=== PATIENT | female | born 1975 | race Caucasian/White ===

== ENCOUNTER 2020-08-10 10:53 | Outpatient (REF) | payer OTHER, SELFPAY ==
--- NOTE | ~2020-08-10 | XR_ITS ---
EXAMINATION: XR CHEST CLINICAL INFORMATION: Rheumatoid arthritis. COMPARISON: None TECHNIQUE: 2 views of the chest were obtained. FINDINGS: There is no evidence of acute parenchymal disease. No pneumothorax or pleural effusion. Heart normal size. Mediastinum unremarkable. No evidence of pulmonary edema. Status post previous right shoulder surgery no significant bony abnormality appreciated. XR/XR chest 2V IMPRESSION: No acute disease.
[2020-08-10 12:42] LABS: MANUAL DIFF FLAG NO
[2020-08-10 12:54] LABS: Basophils Percent Auto 0.8 % (0-2); Eosinophils Absolute Auto 0.1 X10*3/uL (0.0-0.4); Eosinophils Percent Auto 1.4 % (0-4); Hematocrit 42.2 % (37-47); Hemoglobin 14.4 g/dl (12.0-16.0); Imm Gran Abs Auto 0.01 X10*3/uL (0.00-0.03); Imm Gran Pct Auto 0.2 % (0.0-0.4); Lymphocytes Absolute Auto 1.7 X10*3/uL (1.2-4.9); Lymphocytes Percent Auto 33.3 % (20-40); Mean Corpuscular HGB Conc 34.1 g/dl (31.0-35.0); Mean Corpuscular Volume 96.6 fL (80-98); Mean Platelet Volume 10.6 fL (9.4-12.3); Monocytes Absolute Auto 0.4 X10*3/uL (0.1-1.2); Monocytes Percent Auto 7.9 % (2-11); Neutrophils Absolute Auto 2.9 X10*3/uL (2.0-8.3); Neutrophils Percent Auto 56.4 % (45-73); Platelet Count 155 X10*3/uL (160-400); Red Blood Count 4.37 X10*6/uL (4.20-5.50); White Blood Count 5.2 X10*3/uL (4.8-10.8)
[2020-08-10 13:06] LABS: Alanine Aminotransferase 39 U/L (0-31); Albumin Level 4.5 g/dL (3.5-5.0); Alkaline Phosphatase 49 U/L (39-117); Anion Gap 11 (12-20); Aspartate Amino Transferase 29 U/L (5-31); Bilirubin Total 0.6 mg/dL (0.0-1.0); Blood Urea Nitrogen 10 mg/dL (9-16); C Reactive Protein 0.08 mg/dL (< or = 0.50); Calcium 9.5 mg/dL (8.4-10.2); Carbon Dioxide 28 mmol/L (22-29); Chloride 105 mmol/L (96-108); Estimated Glomerular Filt Rate > 60; Glucose Random 79 mg/dL (60-115); Potassium 4.1 mmol/L (3.3-5.1); Sodium 140 mmol/L (135-145); Total Protein 6.9 g/dL (6.5-8.0)
[2020-08-10 13:20] LABS: HBS Num1 > 1000.00 mIU/mL (0-7.99); Hepatitis A Antibody IgM 0.24 Index (0-0.79); ~Hepatitis A Antibody IgM Nonreactive (Nonreactive); ~Hepatitis B Surface Antibody REACTIVE (Nonreactive)
[2020-08-10 13:50] LABS: Erythrocyte Sedimentation Rate 5 MM/HR (0-20)
[2020-08-10 13:51] LABS: HBc Num1 0.08 S/CO (0.00-0.79); HBsAGNum1 0.24 S/CO (0.00-0.99); Hepatitis B Core Antibody Nonreactive (Nonreactive); Hepatitis B Surface Antigen Negative (Negative); ~Hepatitis C Antibody Nonreactive (Nonreactive)
[2020-08-13 14:57] LABS: TS Negative Control Passed; TS Panel A 1; TS Panel B 0; TS Positive Control Passed; TSpotTB Negative (SeeBelow)
[2020-08-14 14:11] LABS: Vitamin D 25-OH, D2 <4 ng/mL; Vitamin D 25-OH, D3 30 ng/mL; Vitamin D 25-OH, Total 30 ng/mL (30-100)
== END 2020-08-10 10:54 | disposition home or self-care (01) ==
LOC: HO.XRAY 10:53
PROVIDERS: PCP Nurse Practitioner Family; Visit Provider Student in an Organized Health Care Education/Training Program
DX: M06.9 Rheumatoid arthritis, unspecified (principal); Z79.899 Other long term (current) drug therapy
CPT/HCPCS: 36415; 71046; 80053; 82306; 85025; 85652; 86140; 86481; 86704; 86706; 86709; 86803; 87340

== ENCOUNTER → 2020-08-18 08:49 | Outpatient (BNVA) | payer OTHER, SELFPAY | PROVIDERS: Visit Provider Student in an Organized Health Care Education/Training Program ==

== ENCOUNTER → 2020-10-19 08:20 | Outpatient (BNVA) | payer OTHER, SELFPAY | PROVIDERS: PCP Nurse Practitioner Family; Visit Provider Nurse Practitioner Family ==

== ENCOUNTER 2020-12-17 08:16 | Outpatient (REF) | payer OTHER, SELFPAY ==
[2020-12-17 08:24] LABS: MANUAL DIFF FLAG NO
[2020-12-17 09:14] LABS: Basophils Percent Auto 0.6 % (0-2); Eosinophils Absolute Auto 0.2 X10*3/uL (0.0-0.4); Eosinophils Percent Auto 4.2 % (0-4); Hematocrit 44.2 % (37-47); Hemoglobin 15.3 g/dl (12.0-16.0); Imm Gran Abs Auto 0.01 X10*3/uL (0.00-0.03); Imm Gran Pct Auto 0.3 % (0.0-0.4); Lymphocytes Absolute Auto 1.5 X10*3/uL (1.2-4.9); Lymphocytes Percent Auto 40.7 % (20-40); Mean Corpuscular HGB Conc 34.6 g/dl (31.0-35.0); Mean Corpuscular Hemoglobin 32.8 pg (27.0-33.0); Mean Corpuscular Volume 94.8 fL (80-98); Mean Platelet Volume 10.7 fL (9.4-12.3); Monocytes Absolute Auto 0.4 X10*3/uL (0.1-1.2); Monocytes Percent Auto 10.5 % (2-11); Neutrophils Absolute Auto 1.6 X10*3/uL (2.0-8.3); Neutrophils Percent Auto 43.7 % (45-73); Platelet Count 149 X10*3/uL (160-400); Red Blood Count 4.66 X10*6/uL (4.20-5.50); Red Cell Distribution Width 12.2 % (11.0-16.0); White Blood Count 3.6 X10*3/uL (4.8-10.8)
[2020-12-17 09:36] LABS: Alanine Aminotransferase 68 U/L (0-31); Albumin Level 4.3 g/dL (3.5-5.0); Alkaline Phosphatase 47 U/L (39-117); Anion Gap 11 (12-20); Aspartate Amino Transferase 36 U/L (5-31); Bilirubin Total 0.4 mg/dL (0.0-1.0); Blood Urea Nitrogen 12 mg/dL (9-16); C Reactive Protein 0.04 mg/dL (< or = 0.50); Calcium 9.3 mg/dL (8.4-10.2); Carbon Dioxide 30 mmol/L (22-29); Chloride 104 mmol/L (96-108); Estimated Glomerular Filt Rate > 60; Glucose Random 87 mg/dL (60-115); Potassium 4.8 mmol/L (3.3-5.1); Sodium 140 mmol/L (135-145); Total Protein 6.9 g/dL (6.5-8.0)
[2020-12-17 10:23] LABS: Erythrocyte Sedimentation Rate 3 MM/HR (0-20)
== END 2020-12-17 08:17 | disposition home or self-care (01) ==
LOC: HO.LAB 08:16
PROVIDERS: PCP Nurse Practitioner Family; Visit Provider Nurse Practitioner Family
DX: M06.9 Rheumatoid arthritis, unspecified (principal)
CPT/HCPCS: 36415; 80053; 85025; 85652; 86140

== ENCOUNTER → 2020-12-19 14:23 | Outpatient (BNVA) | payer OTHER, SELFPAY | PROVIDERS: PCP Nurse Practitioner Family; Visit Provider Nurse Practitioner Family ==

== ENCOUNTER 2021-01-09 08:12 | Outpatient (REF) | payer OTHER, SELFPAY ==
[2021-01-09 08:31] LABS: MANUAL DIFF FLAG NO
[2021-01-09 08:49] LABS: Basophils Percent Auto 0.8 % (0-2); Eosinophils Percent Auto 0.8 % (0-4); Hematocrit 42.9 % (37.0-47.0); Hemoglobin 14.6 g/dl (12.0-16.0); Imm Gran Abs Auto 0.01 X10*3/uL (0.00-0.03); Imm Gran Pct Auto 0.2 % (0.0-0.4); Lymphocytes Absolute Auto 1.4 X10*3/uL (1.2-4.9); Lymphocytes Percent Auto 29.7 % (20-40); Mean Corpuscular Hemoglobin 33.2 pg (27.0-33.0); Mean Corpuscular Volume 97.5 fL (80.0-98.0); Mean Platelet Volume 10.3 fL (9.4-12.3); Monocytes Absolute Auto 0.4 X10*3/uL (0.1-1.2); Monocytes Percent Auto 7.9 % (2-11); Neutrophils Absolute Auto 2.9 x10*3/uL (2.0-8.3); Neutrophils Percent Auto 60.6 % (45-73); Platelet Count 183 X10*3/uL (160-400); Red Cell Distribution Width 12.9 % (11.0-16.0); White Blood Count 4.8 X10*3/uL (4.8-10.8)
[2021-01-09 09:12] LABS: Alanine Aminotransferase 27 U/L (0-31); Albumin Level 4.3 g/dL (3.5-5.0); Alkaline Phosphatase 46 U/L (39-117); Anion Gap 12 (12-20); Aspartate Amino Transferase 21 U/L (5-31); Bilirubin Total 0.7 mg/dL (0.0-1.0); Blood Urea Nitrogen 9 mg/dL (9-16); C Reactive Protein 0.03 mg/dL (< or = 0.50); Calcium 9.1 mg/dL (8.4-10.2); Carbon Dioxide 28 mmol/L (22-29); Chloride 105 mmol/L (96-108); Estimated Glomerular Filt Rate > 60; Glucose Random 124 mg/dL (60-115); Potassium 4.6 mmol/L (3.3-5.1); Sodium 140 mmol/L (135-145); Total Protein 6.7 g/dL (6.5-8.0)
[2021-01-09 09:42] LABS: Erythrocyte Sedimentation Rate 3 MM/HR (0-20)
== END 2021-01-09 08:13 | disposition home or self-care (01) ==
LOC: HO.LAB 08:12
PROVIDERS: PCP Nurse Practitioner Family; Visit Provider Nurse Practitioner Family
DX: M06.9 Rheumatoid arthritis, unspecified (principal)
CPT/HCPCS: 36415; 80053; 85025; 85652; 86140

== ENCOUNTER → 2021-03-24 14:27 | Outpatient (BNVA) | payer OTHER, SELFPAY | PROVIDERS: PCP Nurse Practitioner Family; Visit Provider Nurse Practitioner Family ==

== ENCOUNTER 2021-06-03 08:46 | Outpatient (REF) | payer OTHER, SELFPAY ==
[2021-06-03 09:18] LABS: MANUAL DIFF FLAG NO
[2021-06-03 09:29] LABS: Basophils Percent Auto 0.7 % (0-2); Eosinophils Percent Auto 0.5 % (0-4); Hemoglobin 15.5 g/dl (12.0-16.0); Imm Gran Abs Auto 0.02 X10*3/uL (0.00-0.03); Imm Gran Pct Auto 0.4 % (0.0-0.4); Lymphocytes Percent Auto 35.6 % (20-40); Mean Corpuscular HGB Conc 33.7 g/dl (31.0-35.0); Mean Corpuscular Volume 98.1 fL (80.0-98.0); Mean Platelet Volume 10.6 fL (9.4-12.3); Monocytes Absolute Auto 0.6 X10*3/uL (0.1-1.2); Monocytes Percent Auto 9.7 % (2-11); Neutrophils Percent Auto 53.1 % (45-73); Platelet Count 170 X10*3/uL (160-400); Red Blood Count 4.69 X10*6/uL (4.20-5.50); Red Cell Distribution Width 12.6 % (11.0-16.0); White Blood Count 5.7 X10*3/uL (4.8-10.8)
[2021-06-03 09:56] LABS: Alanine Aminotransferase 42 U/L (0-31); Albumin Level 4.6 g/dL (3.5-5.0); Alkaline Phosphatase 48 U/L (39-117); Anion Gap 11 (12-20); Aspartate Amino Transferase 25 U/L (5-31); Bilirubin Total 0.8 mg/dL (0.0-1.0); Blood Urea Nitrogen 10 mg/dL (9-16); C Reactive Protein 0.06 mg/dL (< or = 0.50); Carbon Dioxide 30 mmol/L (22-29); Chloride 105 mmol/L (96-108); Estimated Glomerular Filt Rate > 60; Glucose Random 105 mg/dL (60-115); Potassium 5.1 mmol/L (3.3-5.1); Sodium 141 mmol/L (135-145); Total Protein 7.4 g/dL (6.5-8.0)
[2021-06-03 10:15] LABS: Erythrocyte Sedimentation Rate 4 MM/HR (0-20)
== END 2021-06-03 08:47 | disposition home or self-care (01) ==
LOC: HO.LAB 08:46
PROVIDERS: PCP Nurse Practitioner Family; Visit Provider Nurse Practitioner Family
DX: M06.9 Rheumatoid arthritis, unspecified (principal)
CPT/HCPCS: 36415; 80053; 85025; 85652; 86140

== ENCOUNTER → 2021-06-28 14:29 | Outpatient (BNVA) | payer OTHER, SELFPAY | PROVIDERS: PCP Nurse Practitioner Family; Visit Provider Nurse Practitioner Family | DX: Z13.89 Encounter for screening for other disorder (principal) ==

== ENCOUNTER 2021-08-17 09:13 | Outpatient (REF) | payer OTHER, SELFPAY ==
[2021-08-17 09:29] LABS: MANUAL DIFF FLAG NO
[2021-08-17 10:02] LABS: Basophils Percent Auto 0.7 % (0-2); Eosinophils Absolute Auto 0.1 X10*3/uL (0.0-0.4); Eosinophils Percent Auto 1.1 % (0-4); Hematocrit 43.1 % (37.0-47.0); Hemoglobin 14.4 g/dl (12.0-16.0); Imm Gran Abs Auto 0.01 X10*3/uL (0.00-0.03); Imm Gran Pct Auto 0.2 % (0.0-0.4); Lymphocytes Absolute Auto 1.8 X10*3/uL (1.2-4.9); Lymphocytes Percent Auto 40.5 % (20-40); Mean Corpuscular HGB Conc 33.4 g/dl (31.0-35.0); Mean Corpuscular Hemoglobin 32.5 pg (27.0-33.0); Mean Corpuscular Volume 97.3 fL (80.0-98.0); Monocytes Absolute Auto 0.4 X10*3/uL (0.1-1.2); Monocytes Percent Auto 8.8 % (2-11); Neutrophils Absolute Auto 2.2 x10*3/uL (2.0-8.3); Neutrophils Percent Auto 48.7 % (45-73); Platelet Count 168 X10*3/uL (160-400); Red Blood Count 4.43 X10*6/uL (4.20-5.50); Red Cell Distribution Width 12.2 % (11.0-16.0); White Blood Count 4.4 X10*3/uL (4.8-10.8)
[2021-08-17 10:33] LABS: Alanine Aminotransferase 33 U/L (0-31); Albumin Level 4.3 g/dL (3.5-5.0); Alkaline Phosphatase 48 U/L (39-117); Anion Gap 12 (12-20); Aspartate Amino Transferase 25 U/L (5-31); Bilirubin Total 0.6 mg/dL (0.0-1.0); Blood Urea Nitrogen 10 mg/dL (9-16); C Reactive Protein 0.11 mg/dL (< or = 0.50); Calcium 9.2 mg/dL (8.4-10.2); Carbon Dioxide 29 mmol/L (22-29); Chloride 105 mmol/L (96-108); Estimated Glomerular Filt Rate > 60; Glucose Random 88 mg/dL (60-115); Potassium 4.7 mmol/L (3.3-5.1); Sodium 141 mmol/L (135-145)
[2021-08-17 10:43] LABS: Erythrocyte Sedimentation Rate 5 MM/HR (0-20)
== END 2021-08-17 09:14 | disposition home or self-care (01) ==
LOC: HO.LAB 09:13
PROVIDERS: PCP Nurse Practitioner Family; Visit Provider Nurse Practitioner Family
DX: M06.9 Rheumatoid arthritis, unspecified (principal)
CPT/HCPCS: 36415; 80053; 85025; 85652; 86140

== ENCOUNTER 2021-11-18 08:27 | Outpatient (REF) | payer OTHER, SELFPAY ==
--- NOTE | ~2021-11-18 | XR_ITS ---
EXAMINATION: XR HAND, RIGHT XR HAND, LEFT CLINICAL INFORMATION: Rheumatoid arthritis. COMPARISON: None. TECHNIQUE: PA, oblique, and lateral views of the right and left hand. FINDINGS: Right Hand: No fracture or dislocation. Normal carpal alignment. No significant joint space narrowing or marginal osteophytes. No osseous erosion. No periarticular osteopenia. No abnormal soft tissue calcification. Left Hand: No fracture or dislocation. Normal carpal alignment. No significant joint space narrowing or marginal osteophytes. No osseous erosion. No periarticular osteopenia. No abnormal soft tissue calcification. XR/XR hand RT min 3V IMPRESSION: RIGHT HAND: Unremarkable examination. LEFT HAND: Unremarkable examination.
--- NOTE | ~2021-11-18 | XR_ITS ---
EXAMINATION: XR HAND, RIGHT XR HAND, LEFT CLINICAL INFORMATION: Rheumatoid arthritis. COMPARISON: None. TECHNIQUE: PA, oblique, and lateral views of the right and left hand. FINDINGS: Right Hand: No fracture or dislocation. Normal carpal alignment. No significant joint space narrowing or marginal osteophytes. No osseous erosion. No periarticular osteopenia. No abnormal soft tissue calcification. Left Hand: No fracture or dislocation. Normal carpal alignment. No significant joint space narrowing or marginal osteophytes. No osseous erosion. No periarticular osteopenia. No abnormal soft tissue calcification. XR/XR hand LT min 3V IMPRESSION: RIGHT HAND: Unremarkable examination. LEFT HAND: Unremarkable examination.
[2021-11-18 08:43] LABS: MANUAL DIFF FLAG NO
[2021-11-18 09:12] LABS: Basophils Percent Auto 0.6 % (0-2); Eosinophils Percent Auto 0.8 % (0-4); Hematocrit 44.6 % (37.0-47.0); Hemoglobin 15.1 g/dl (12.0-16.0); Imm Gran Abs Auto 0.01 X10*3/uL (0.00-0.03); Imm Gran Pct Auto 0.2 % (0.0-0.4); Lymphocytes Absolute Auto 1.4 X10*3/uL (1.2-4.9); Lymphocytes Percent Auto 29.8 % (20-40); Mean Corpuscular HGB Conc 33.9 g/dl (31.0-35.0); Mean Corpuscular Hemoglobin 32.5 pg (27.0-33.0); Mean Corpuscular Volume 96.1 fL (80.0-98.0); Mean Platelet Volume 10.1 fL (9.4-12.3); Monocytes Absolute Auto 0.4 X10*3/uL (0.1-1.2); Neutrophils Absolute Auto 2.9 x10*3/uL (2.0-8.3); Neutrophils Percent Auto 60.6 % (45-73); Platelet Count 194 X10*3/uL (160-400); Red Blood Count 4.64 X10*6/uL (4.20-5.50); Red Cell Distribution Width 13.2 % (11.0-16.0); White Blood Count 4.7 X10*3/uL (4.8-10.8)
[2021-11-18 09:53] LABS: Alanine Aminotransferase 30 U/L (0-31); Albumin Level 4.2 g/dL (3.5-5.0); Alkaline Phosphatase 52 U/L (39-117); Anion Gap 17 (12-20); Aspartate Amino Transferase 22 U/L (5-31); Bilirubin Total 0.7 mg/dL (0.0-1.0); Blood Urea Nitrogen 12 mg/dL (9-16); C Reactive Protein 0.05 mg/dL (< or = 0.50); Calcium 9.2 mg/dL (8.4-10.2); Carbon Dioxide 25 mmol/L (22-29); Chloride 102 mmol/L (96-108); Estimated Glomerular Filt Rate > 60; Glucose Random 114 mg/dL (60-115); Potassium 4.4 mmol/L (3.3-5.1); Sodium 140 mmol/L (135-145); Total Protein 6.9 g/dL (6.5-8.0)
[2021-11-18 09:57] LABS: Erythrocyte Sedimentation Rate 5 MM/HR (0-20)
== END 2021-11-18 08:28 | disposition home or self-care (01) ==
LOC: HO.LAB 08:27
PROVIDERS: PCP Nurse Practitioner Family; Visit Provider Nurse Practitioner Family
DX: M06.9 Rheumatoid arthritis, unspecified (principal)
CPT/HCPCS: 36415; 73130; 80053; 85025; 85652; 86140

== ENCOUNTER 2022-05-19 09:52 | Outpatient (REF) | payer OTHER, SELFPAY | END 2022-05-19 09:53 | disposition home or self-care (01) | LOC: HO.LAB 09:52 | PROVIDERS: PCP Nurse Practitioner Family; Visit Provider Nurse Practitioner Family | DX: Z13.89 Encounter for screening for other disorder (principal) ==

== ENCOUNTER → 2022-06-08 07:26 | Outpatient (BNVA) | payer OTHER, SELFPAY | PROVIDERS: PCP Nurse Practitioner Family; Visit Provider Nurse Practitioner Family | DX: M06.9 Rheumatoid arthritis, unspecified (principal) ==

== ENCOUNTER 2022-06-08 08:07 | Outpatient (REF) | payer OTHER, SELFPAY ==
[2022-06-08 11:01] LABS: MANUAL DIFF FLAG NO
[2022-06-08 11:09] LABS: Basophils Absolute Auto 0.1 X10*3/uL (0.0-0.2); Eosinophils Absolute Auto 0.1 X10*3/uL (0.0-0.4); Eosinophils Percent Auto 0.8 % (0-4); Hematocrit 45.1 % (37.0-47.0); Imm Gran Abs Auto 0.01 X10*3/uL (0.00-0.03); Imm Gran Pct Auto 0.2 % (0.0-0.4); Lymphocytes Absolute Auto 1.3 X10*3/uL (1.2-4.9); Lymphocytes Percent Auto 22.7 % (20-40); Mean Corpuscular HGB Conc 33.3 g/dl (31.0-35.0); Mean Corpuscular Hemoglobin 32.1 pg (27.0-33.0); Mean Corpuscular Volume 96.4 fL (80.0-98.0); Mean Platelet Volume 11.1 fL (9.4-12.3); Monocytes Absolute Auto 0.5 X10*3/uL (0.1-1.2); Monocytes Percent Auto 8.8 % (2-11); Neutrophils Absolute Auto 3.9 x10*3/uL (2.0-8.3); Neutrophils Percent Auto 66.5 % (45-73); Platelet Count 177 X10*3/uL (160-400); Red Blood Count 4.68 X10*6/uL (4.20-5.50); Red Cell Distribution Width 12.2 % (11.0-16.0); White Blood Count 5.9 X10*3/uL (4.8-10.8)
[2022-06-08 11:29] LABS: Alanine Aminotransferase 39 U/L (0-31); Albumin Level 4.3 g/dL (3.5-5.0); Alkaline Phosphatase 48 U/L (39-117); Anion Gap 11 (12-20); Aspartate Amino Transferase 30 U/L (5-31); Bilirubin Total 0.9 mg/dL (0.0-1.0); Blood Urea Nitrogen 9 mg/dL (9-16); C Reactive Protein < 0.10 mg/dL (< or = 0.50); Calcium 9.2 mg/dL (8.4-10.2); Carbon Dioxide 30 mmol/L (22-29); Chloride 104 mmol/L (96-108); Estimated Glomerular Filt Rate > 60; Glucose Random 80 mg/dL (60-115); Potassium 4.4 mmol/L (3.3-5.1); Sodium 141 mmol/L (135-145); Total Protein 6.6 g/dL (6.5-8.0)
[2022-06-08 11:48] LABS: Erythrocyte Sedimentation Rate 2 MM/HR (0-20)
[2022-06-08 11:49] LABS: HBS Num1 > 1000.00 mIU/mL (0-7.99); HBc Num1 0.11 S/CO (0.00-0.79); HBsAGNum1 0.33 S/CO (0.00-0.99); Hepatitis A Antibody IgM 0.16 Index (0-0.79); Hepatitis B Core Antibody Nonreactive (Nonreactive); Hepatitis B Surface Antigen Negative (Negative); ~HepC Num1 0.26 S/CO (0.00-0.79); ~Hepatitis A Antibody IgM Nonreactive (Nonreactive); ~Hepatitis B Surface Antibody REACTIVE (Nonreactive); ~Hepatitis C Antibody Nonreactive (Nonreactive)
[2022-06-10 22:43] LABS: TS Negative Control Passed; TS Panel A 0; TS Panel B 0; TS Positive Control Passed; TSpotTB Negative (Negative)
== END 2022-06-08 08:08 | disposition home or self-care (01) ==
LOC: HO.10HDL 08:07
PROVIDERS: Visit Provider Nurse Practitioner Family
DX: M06.9 Rheumatoid arthritis, unspecified (principal)
CPT/HCPCS: 36415; 80053; 85025; 85652; 86140; 86481; 86704; 86706; 86709; 86803; 87340

== ENCOUNTER 2023-07-19 11:17 | Outpatient (REF) | payer OTHER, SELFPAY ==
[2023-07-19 13:35] LABS: MANUAL DIFF FLAG NO
[2023-07-19 13:42] LABS: Basophils Percent Auto 0.6 % (0-2); Eosinophils Percent Auto 0.8 % (0-4); Hematocrit 44.5 % (37.0-47.0); Hemoglobin 15.1 g/dl (12.0-16.0); Imm Gran Abs Auto 0.01 X10*3/uL (0.00-0.03); Imm Gran Pct Auto 0.2 % (0.0-0.4); Lymphocytes Absolute Auto 1.6 X10*3/uL (1.2-4.9); Lymphocytes Percent Auto 30.5 % (20-40); Mean Corpuscular HGB Conc 33.9 g/dl (31.0-35.0); Mean Corpuscular Hemoglobin 31.7 pg (27.0-33.0); Mean Corpuscular Volume 93.3 fL (80.0-98.0); Mean Platelet Volume 10.6 fL (9.4-12.3); Monocytes Absolute Auto 0.5 X10*3/uL (0.1-1.2); Monocytes Percent Auto 8.6 % (2-11); Neutrophils Absolute Auto 3.1 x10*3/uL (2.0-8.3); Neutrophils Percent Auto 59.3 % (45-73); Platelet Count 154 X10*3/uL (160-400); Red Blood Count 4.77 X10*6/uL (4.20-5.50); Red Cell Distribution Width 12.2 % (11.0-16.0); White Blood Count 5.2 X10*3/uL (4.8-10.8)
[2023-07-19 14:00] LABS: Alanine Aminotransferase 19 U/L (0-31); Albumin Level 4.3 g/dL (3.5-5.0); Alkaline Phosphatase 42 U/L (39-117); Anion Gap 13 (12-20); Aspartate Amino Transferase 21 U/L (5-31); Bilirubin Total 0.7 mg/dL (0.0-1.0); Blood Urea Nitrogen 11 mg/dL (9-16); C Reactive Protein < 0.10 mg/dL (< or = 0.50); Calcium 9.4 mg/dL (8.4-10.2); Carbon Dioxide 29 mmol/L (22-29); Chloride 104 mmol/L (96-108); Estimated Glomerular Filt Rate > 60; Glucose Random 85 mg/dL (60-115); Potassium 3.9 mmol/L (3.3-5.1); Sodium 142 mmol/L (135-145); Total Protein 7.1 g/dL (6.5-8.0)
[2023-07-19 14:23] LABS: Erythrocyte Sedimentation Rate 3 MM/HR (0-20)
== END 2023-07-19 11:18 | disposition home or self-care (01) ==
LOC: HO.10HDL 11:17
PROVIDERS: Visit Provider Student in an Organized Health Care Education/Training Program
DX: M06.9 Rheumatoid arthritis, unspecified (principal); Z79.899 Other long term (current) drug therapy
CPT/HCPCS: 36415; 80053; 85025; 85652; 86140

== ENCOUNTER 2023-07-22 07:57 | Outpatient (AMB) | payer OTHER, SELFPAY ==
--- NOTE | 2023-07-22 07:59 | MHC.OFFVIS ---
Vital Signs 07/22/23 08:06 Height 5 ft 2 in Weight 160 lb 11.472 oz BMI 29.4 BP 128/74 Blood Pressure Location Rt brachial Position Sitting Pulse 79 Pulse Source Pulse Oximeter Pulse Oximetry (%) 99 Oxygen Delivery Method Room Air Intake Visit Reasons: Rheumatoid Arthritis Intake Note: Pt last seen by Chantel Piedra on 06/08/22 presents today with complaints of brain fog, fatigue, sore hands and feet. [employer] Driver Required: No Accompanied by: Self / Same As Patient Allergies No Known Allergies Allergy (Verified 07/22/23 08:05) Medication List - Last Reconciled 07/22/23 by Karen Aranda MD bupropion HCl XL 300 mg PO QAM ibuprofen 400 mg PO Q8H PRN HPI Comments Details: 47-year-old female with seropositive RA returns for follow-up. She was last seen by Krystyna Piedra 06/2022. She had been off her methotrexate for more than a year. She states that since she stopped the methotrexate she has been feeling worse. She is having stiffness of her hands and feet. She is most stiff in the morning and it improves after 1 hour. She takes ibuprofen 400 mg to treat the pain and stiffness about once a week. She has not noticed any significant swelling. Has been having some brain fog and fatigue. [facility] Medical History Rheumatoid arthritis Surgical History H/O shoulder surgery Hx of section Family History Mother No problems noted. Father No problems noted. Social History Alcohol intake: current Alcohol intake frequency: a few times a week Alcohol type: beer Patient Tobacco Use Status: Never used Tobacco e-Cigarette/Vaping Use: Never Used Review of Systems Const Reports weakness Musc Reports deformity, Reports arthralgias and Reports stiffness Neuro Reports weakness Physical Exam Vital Signs: Last Vital Signs Pulse 79 07/22/23 08:06 BP 128/74 07/22/23 08:06 Pulse Ox 99 07/22/23 08:06 Oxygen Delivery Method Room Air 07/22/23 08:06 BMI result Body Mass Index 29.4 Const General: cooperative, healthy appearing and comfortable Nutritional Appearance: overweight Orientation/consciousness: patient oriented x3 Limitations: no limitations HEENT Head: Yes normocephalic and Yes atraumatic Mouth: moist mucous membranes Resp Effort & Inspection: normal respiratory effort and able to speak in complete sentences Auscultation: clear to auscultation bilaterally Cardio Rate: regular rate Rhythm: regular rhythm Skin General skin exam: no rashes or lesions noted Neuro General: patient oriented x3 Extrem Other: Minimal osteoarthritic changes of both hands with some Heberden's node that are mildly tender Few swollen and tender PIP is bilaterally Bilateral positive MCP squeeze test No wrist swelling or tenderness or pain with any range of motion bilaterally Normal range of motion of elbows and shoulders without pain Normal range of motion of knees without pain Negative MTP squeeze test bilaterally No ankle swelling or tenderness bilaterally Assessment & Plan Assessment & Plan (1) Rheumatoid arthritis: Comment: April 2019 -Diagnosed, methotrexate 8 tabs weekly August 2020- 8 tabs methotrexate, failed sulfasalazine, Humira added December 2020- elevated LFTs, methotrexate decreased to 5 tabs weekly, Humira March 2021- 5 tabs methotrexate , Humira discontinue, Enbrel started-continued pain June 2021- 5 tab methotrexate , Enbrel discontinued-no difference November 2021- patient would like to trial off methotrexate. Code(s): M06.9 - Rheumatoid arthritis, unspecified Category: Medical Plan: This is a 47-year-old female with seropositive RA who presents for follow-up. Patient has been off her methotrexate for over a year and has been feeling worse. Has been having worsening new line stiffness and pain in her hands and feet. On exam she has both swollen and tender PIPs. Very subtle on exam. Inflammatory markers are normal. Will need to restart DMARDs. Discussed risks and benefits of this chloroquine. Patient agreed to proceed. Start hydroxychloroquine 200 mg, 400 mg daily x5 days a week and 200 mg daily x2 days a week. If no improvement, will switch to Orencia. Labs before next visit in 3 months (2) Long-term use of hydroxychloroquine: Code(s): Z79.899 - Other penitentiary (current) drug therapy Category: Medical Plan: Discussed risk of retinopathy associated with hydroxychloroquine. Patient will make an appointment with her salvage cutter Plan I spent 30 minutes reviewing patient's chart, evaluating patient, ordering diagnostic workup, counseling patient and documenting in the chart Orders: Orders Complete Blood Count Auto Diff 3 Months M06.9 - Rheumatoid arthritis, unspecified Erythrocyte Sedimentation Rate 3 Months M06.9 - Rheumatoid arthritis, unspecified Comprehensive Met. Panel 3 Months M06.9 - Rheumatoid arthritis, unspecified C Reactive Protein 3 Months M06.9 - Rheumatoid arthritis, unspecified Medications: New hydroxychloroquine Take 2 tabs daily x5 days a week and 1 tab daily x2 days a week 144 tabs 0RF Coding Level of Care Code Est Pt Level 4 (46068) Diagnoses Rheumatoid arthritis M06.9 Long-term use of hydroxychloroquine Z79.899
[2023-07-22 08:06] VITALS: BP 128/74; PULSE 79; O2SAT 99; BMI 29.4
== END 2023-07-22 08:40 | disposition home or self-care (01) ==
PROVIDERS: PCP Nurse Practitioner Family; Visit Provider Student in an Organized Health Care Education/Training Program
DX: M06.9 Rheumatoid arthritis, unspecified (principal); Z79.899 Other long term (current) drug therapy
CPT/HCPCS: 99214

== ENCOUNTER → 2023-07-22 07:57 | Outpatient (BNVA) | payer OTHER, SELFPAY | PROVIDERS: PCP Nurse Practitioner Family; Visit Provider Student in an Organized Health Care Education/Training Program ==

== ENCOUNTER 2023-10-28 12:46 | Outpatient (REF) | payer OTHER, SELFPAY ==
[2023-10-28 13:06] LABS: MANUAL DIFF FLAG NO
[2023-10-28 13:18] LABS: Basophils Percent Auto 0.5 % (0-2); Eosinophils Percent Auto 0.7 % (0-4); Hematocrit 43.4 % (37.0-47.0); Hemoglobin 14.8 g/dl (12.0-16.0); Imm Gran Abs Auto 0.01 X10*3/uL (0.00-0.03); Imm Gran Pct Auto 0.2 % (0.0-0.4); Lymphocytes Absolute Auto 1.5 X10*3/uL (1.2-4.9); Lymphocytes Percent Auto 27.7 % (20-40); Mean Corpuscular HGB Conc 34.1 g/dl (31.0-35.0); Mean Corpuscular Hemoglobin 32.5 pg (27.0-33.0); Mean Corpuscular Volume 95.2 fL (80.0-98.0); Mean Platelet Volume 10.2 fL (9.4-12.3); Monocytes Absolute Auto 0.6 X10*3/uL (0.1-1.2); Monocytes Percent Auto 10.1 % (2-11); Neutrophils Absolute Auto 3.4 x10*3/uL (2.0-8.3); Neutrophils Percent Auto 60.8 % (45-73); Platelet Count 187 X10*3/uL (160-400); Red Blood Count 4.56 X10*6/uL (4.20-5.50); Red Cell Distribution Width 12.3 % (11.0-16.0); White Blood Count 5.6 X10*3/uL (4.8-10.8)
[2023-10-28 13:45] LABS: Alanine Aminotransferase 19 U/L (0-31); Albumin Level 4.2 g/dL (3.5-5.0); Alkaline Phosphatase 47 U/L (39-117); Anion Gap 12 (12-20); Aspartate Amino Transferase 21 U/L (5-31); Bilirubin Total 0.6 mg/dL (0.0-1.0); Blood Urea Nitrogen 10 mg/dL (9-16); C Reactive Protein < 0.10 mg/dL (< or = 0.50); Carbon Dioxide 28 mmol/L (22-29); Chloride 105 mmol/L (96-108); Estimated Glomerular Filt Rate > 60; Glucose Random 101 mg/dL (60-115); Potassium 5.2 mmol/L (3.3-5.1); Sodium 140 mmol/L (135-145); Total Protein 6.9 g/dL (6.5-8.0)
[2023-10-28 14:03] LABS: Erythrocyte Sedimentation Rate 4 MM/HR (0-20)
== END 2023-10-28 12:47 | disposition home or self-care (01) ==
LOC: HO.10HDL 12:46
PROVIDERS: Visit Provider Student in an Organized Health Care Education/Training Program
DX: M06.9 Rheumatoid arthritis, unspecified (principal)
CPT/HCPCS: 36415; 80053; 85025; 85652; 86140

== ENCOUNTER 2023-10-30 09:39 | Outpatient (AMB) | payer OTHER, SELFPAY ==
--- NOTE | 2023-10-30 09:44 | A.OFFVIS_ITS ---
Vital Signs 10/30/23 09:45 Height 5 ft 2 in Weight 158 lb 15.253 oz BMI 29.1 BP 120/66 Blood Pressure Location Rt brachial Position Sitting Pulse 78 Pulse Source Pulse Oximeter Pulse Oximetry (%) 98 Oxygen Delivery Method Room Air Intake Visit Reasons: RA Intake Note: Patient presents today for follow up on RA and labs review, last seen on 07/22/2023. Allergies No Known Allergies Allergy (Verified 10/30/23 09:47) Medication List - Last Reconciled 10/30/23 by Karen Aranda MD bupropion HCl XL 300 mg PO QAM hydroxychloroquine Take 2 tabs daily x5 days a week and 1 tab daily x2 days a week ibuprofen 400 mg PO Q8H PRN HPI Comments Details: This is a 48-year-old female with seropositive RA who presents for follow-up. She has been taking hydroxychloroquine regularly over the last 3 months. She noted minimal GI upset but nothing significant. She states that her overall stiffness is improved. But she continues to have some pain and stiffness of her fingers. She has difficulty making a fist sometimes. [facility] Medical History Rheumatoid arthritis Surgical History H/O shoulder surgery Hx of section Family History Mother No problems noted. Father No problems noted. Social History Alcohol intake: current Alcohol intake frequency: a few times a week Alcohol type: beer Patient Tobacco Use Status: Never used Tobacco e-Cigarette/Vaping Use: Never Used Review of Systems [facility] Reports deformity, Reports arthralgias and Reports stiffness Physical Exam Vital Signs: Last Vital Signs Pulse 78 10/30/23 09:45 BP 120/66 10/30/23 09:45 Pulse Ox 98 10/30/23 09:45 Oxygen Delivery Method Room Air 10/30/23 09:45 BMI result Body Mass Index 29.1 Const General: cooperative, healthy appearing and comfortable Nutritional Appearance: overweight Orientation/consciousness: patient oriented x3 Limitations: no limitations HEENT Head: Yes normocephalic and Yes atraumatic Mouth: moist mucous membranes Resp Effort & Inspection: normal respiratory effort and able to speak in complete sentences Auscultation: clear to auscultation bilaterally Cardio Rate: regular rate Rhythm: regular rhythm Skin General skin exam: no rashes or lesions noted Neuro General: patient oriented x3 Extrem Other: Osteoarthritic changes of both hands with prominent Heberden's and Bernice's nodes that are mildly tender No swollen joints today No wrist swelling or tenderness or pain with any range of motion bilaterally Normal range of motion of elbows and shoulders without pain Normal range of motion of knees without pain Negative MTP squeeze test bilaterally No ankle swelling or tenderness bilaterally Assessment & Plan Assessment & Plan (1) Rheumatoid arthritis: Comment: April 2019 -Diagnosed, methotrexate 8 tabs weekly August 2020- 8 tabs methotrexate, failed sulfasalazine, Humira added December 2020- elevated LFTs, methotrexate decreased to 5 tabs weekly, Humira March 2021- 5 tabs methotrexate , Humira discontinue, Enbrel started-continued pain June 2021- 5 tab methotrexate , Enbrel discontinued-no difference November 2021- patient would like to trial off methotrexate. [facility] 07/2023 effective Code(s): M06.9 - Rheumatoid arthritis, unspecified Category: Medical Qualifiers: Rheumatoid arthritis location: multiple sites Rheumatoid factor presence: with rheumatoid factor Qualified Code(s): M05.79 - Rheumatoid arthritis with rheumatoid factor of multiple sites without organ or systems involvement Plan: This is a 48-year-old female with seropositive RA who presents for follow-up. She has been taking hydroxychloroquine regularly for the last 3 months with improved overall stiffness. On exam there is no active synovitis. 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 Test bilateral hand osteoarthritis today and its different management strategies. At this time no specific treatment is needed Continue with hydroxychloroquine Labs before next visit in 6 months (2) Long-term use of hydroxychloroquine: Code(s): Z79.899 - Other superintendent [employer] (current) drug therapy Category: Medical Plan: Discussed risk of retinopathy associated with hydroxychloroquine. Patient will make an appointment with her certified anesthesiologist assistant (3) Hyperkalemia: Code(s): E87.5 - Hyperkalemia Category: Medical Plan: Mild hyperkalemia, potassium 5.2, no recent medication or dietary changes. We will check labs before next visit Plan I spent 25 minutes reviewing patient's chart, evaluating patient, ordering diagnostic workup, counseling patient and documenting in the chart Orders: Orders Complete Blood Count Auto Diff 6 Months M06.9 - Rheumatoid arthritis, unspecified Comprehensive Met. Panel 6 Months M06.9 - Rheumatoid arthritis, unspecified C Reactive Protein 6 Months M06.9 - Rheumatoid arthritis, unspecified Erythrocyte Sedimentation Rate 6 Months M06.9 - Rheumatoid arthritis, unspecified Coding Level of Care Code Est Pt Level 4 (20610) Diagnoses Rheumatoid arthritis involving multiple sites with positive rheumatoid factor M05.79 Rheumatoid arthritis location: multiple sites Rheumatoid factor presence: with rheumatoid factor Long-term use of hydroxychloroquine Z79.899 Hyperkalemia E87.5
[2023-10-30 09:45] VITALS: BP 120/66; PULSE 78; O2SAT 98; BMI 29.1
== END 2023-10-30 12:03 | disposition home or self-care (01) ==
PROVIDERS: PCP Nurse Practitioner Family; Visit Provider Student in an Organized Health Care Education/Training Program
DX: M05.79 Rheumatoid arthritis with rheumatoid factor of multiple sites without organ or systems involvement (principal); Z79.899 Other long term (current) drug therapy; E87.5 Hyperkalemia
CPT/HCPCS: 99214

== ENCOUNTER → 2023-10-30 09:39 | Outpatient (BNVA) | payer OTHER, SELFPAY | PROVIDERS: PCP Nurse Practitioner Family; Visit Provider Student in an Organized Health Care Education/Training Program ==

== ENCOUNTER 2024-04-24 12:25 | Outpatient (REF) | payer OTHER, SELFPAY ==
--- OUTSIDE RECORDS SUMMARY | 2024-04-24 13:05 | XMS_ITS | Data Portability ---
Author Organization [facility], , [facility] Address [address] [place] [address] Care Team Providers Care Transportation Coordinator Name Role Phone VANI ASHRAF Primary Care Provider [phone] Assessment No assessment recorded. Plan of Treatment Reminders Order Date Submit Date Provider Last Modified By Organization Details Last Modified Time Details Appointments Compreh ensive Eye Exam, 20 Min 2024 02:10P M Debra Villafuerte, HERRERA Not available Not available Not available Lab lipid panel, serum 2024 025 [facility], [address] [place] [address], [id number], 03/27/2024 12:25:56 TSH, serum or plasma 2024 025 [facility], [address] [place] [address], [address], 03/27/2024 11:31:42 glucose , QN [mass/v olume], serum or plasma 2024 025 [facility], [address] [place] [address], [address], 03/27/2024 12:25:57 progest erone, serum 2024 025 [facility], [address] [place] [address], [address], 03/31/2024 19:17:30 lipid panel, serum 2022 023 [facility], [address] [place] [address], [address], 11/02/2022 10:16:32 TSH, serum or plasma 2022 023 [facility], [address] [place] [address], [address], 11/02/2022 10:48:34 glucose , QN [mass/v olume], serum or plasma 2022 023 [facility], [address] [place] [address], [address], 11/02/2022 10:16:33 pap, LB + HPV - Pap smear with HPVIs this patient taking hormone s (y/n)? IF yes, what type? 2022 023 [facility] (Pathology), [address] [place] [address], [address], 11/07/2022 12:48:53 AST/SGO T (aspart ate aminotr ansfera se), serum or plasma 2022 023 [facility], [address] [place] [address], [address], 11/02/2022 10:16:34 ALT (alanin e aminotr ansfera se), serum or plasma 2022 023 [facility], [address] [place] [address], [address], 11/02/2022 10:16:35 Referral None recorde d. Procedures colonos copy procedu re (PROC) [email or web address] [facility], [address] [place], [address], 11/02/2022 09:52:46 Surgeries None recorde d. Imaging MAMMO, screeni ng, tomosyn thesis, bilater al - 2nd Look Consult /Diag Mammo/U S Breast/ Guided Asp/Radha ast Bx/Clip Placeme nt, as clinica lly indicat ed. 2024 025 [facility] (Imaging), [address], [place], [address], 04/15/2024 14:03:55 MAMMO, rosai syed, tomosyn thesis, batsheva lino 2022 023 [facility] (Imaging), [address] [place], [address], 04/10/2023 13:59:57 Medication Orders cyclobe nzaprin e 5 mg tablet 2022 023 [email or web address] [address] [id number], [address], [place], [id number], 03/26/2024 14:20:38 Patient TargetsNo targets recorded. Patient Instructions Encounter Date Encounter Id Patient Instructions Last Modified By Organization Details Last Modified Time 11/01/2022 [id number] Well Visit, Ages 18 to 65: Care Instructions [email or web address] Not available 11/01/2022 11:21:10 Reason for Referral None Reported. Results Created Date Observation Date Name Description Value Unit Range Abnormal Flag Note LastModifiedBy Organization Detail LastModifiedTime 11/02/1911/02/2022 LIPID PANEL cholesterol 192 mg/dL <200 mg/dl Zenon able 200-2 39 mg/dl Borde rline High >240 mg/dl High Not Available [address], [address], 11/02/2022 10:16:32 11/02/1911/02/2022 LIPID PANEL triglyceride s 85 mg/dL <150 mg/dL Nara l 150-1 99 mg/dL Borde rline High 200-4 99 mg/dL High >500 mg/dL Very High Not Available [address], [address], 11/02/2022 10:16:32 11/02/1911/02/2022 LIPID PANEL direct HDL 61 mg/dL <40 mg/dl - Major Risk for CHD >60 mg/dl - Negat jack Risk for CHD Not Available [address], [address], 11/02/2022 10:16:32 11/02/19 23 11/02/2022 GLUCO SE glucose 82 mg/dL 70-100 Not Available [address], [address], 11/02/2022 10:16:33 11/02/19 23 11/02/2022 AST AST 25 U/L 0-37 Not Available [address], [address], 11/02/2022 10:16:34 11/02/19 23 11/02/2022 ALT ALT 26 U/L 6-63 Not Available [address], [address], 11/02/2022 10:16:35 11/02/19 23 11/02/2022 DIREC T LDL direct LDL 90 mg/dL RISK CATEG ORY LDL GOAL _ CHD or CHD Risk Equiv alent s <100 mg/dl (10-y ear risk >20%) 2+ Risk Facto rs <130 mg/dl (10-y ear risk <= 20%) 0-1 Risk Facto r??? <160 mg/dl ??? Almos t all peopl e with 0-1 risk facto r have a 10 year risk <10%, thus 10 year risk asses ment in peopl e with 0-1 risk facto r is not allen sandhu. Not Available [address], [address], 11/02/2022 10:16:36 11/02/19 23 11/02/2022 TSH TSH 3.37 uIU/m L 0.50-6 .00 The Ameri can Colle ge of Endoc rinol ogy and Ameri can Thyro id Assoc iatio n recom mend goal TSH value s betwe en 0.4-4 .0 mIU/m L. Not Available [facility] [address] [facility], [place], [address], 11/02/2022 10:48:33 11/02/19 23 11/07/2022 PAP TEST path report [facility] [address] [facility] [address] Lab Direc tor: Loree marquez MD MANAGER INSTALLATION Cytol ogy Repor t Acces carmella #: [id number] FINAL DIAGN OSIS A. PAP SMEAR (SURE PATH) CE: SPECI MEN ADEQU ACY: Satis facto ry for evalu ation ; trans forma tion zone prese nt. INTER PRETA TION: NEGAT JACK FOR INTRA EPITH ELIAL LESIO N OR MALIG DAWIT . React jack gao es. Elect robyn curiel Guerline d Out By: MD Devang Eddy er, CT( CP) By his/h er signtabatha zhang above , the patho logis t liste d as aj collier the Final Diagn osis certi fies that he/sh e has perso greta revie wed this case and confi rmed or corre cted the diagn osis. The Pap test is a scree brunilda test prima rily for squam ous cance rs and precu rsors and has assoc iated false -nega tive and false -posi tive resul ts. New techn ologi es such as liqui d-bas ed prepa ratio ns may decre ase but will not elimi petrona all false -nega tive resul ts. Regul ar sampl ing and follo w-up of unexp jakub d clini brissa signs and sympt oms are recom kristina d to minim ize false negat jack resul ts. PROCE DURES /ADDE NDA HPV Testi ng (Requ ested ) Order ed Date: 023 A. PAP SMEAR (SURE PATH) CE: Human Papil jaelyn Virus Test NEGAT JACK for high- risk Human Papil jaelyn Virus types 16, 18, 45 and the Othe r high risk probe set (Incl udes 31, 33, 35, 39, 51, 52, 56, 58, 59, 66, 68) Note: Testi ng perfo rmed by Rick martel HR-HP V maggy sis. Clini brissa corre latio n is advis ed. This HPV test was perfo rmed at [facility], [address] [facility]. This test has been FDA appro cb for SureP ath cervi brissa cytol ogy speci mens. The accur acy and preci carmella of this test for all other speci men sourc es has been verif ied in the Cytop athol ogy Labor atory of the [facility] and has not been clear ed or appro cb by the U.S. Food and Drug Admin istra tion. Clini brissa corre latio n is advis ed. Nereida ctron icall y Guerline d Out By: Joe phoenix on 023 10:56 CLINI BRISSA HISTO RY Date of Last Menst rual Perio d: Not Provi ded Menst rual Histo ry: Unkno wn Other Clini brissa Condi tions : Scree brunilda Pap SPECI MEN SOURC E A: PAP SMEAR (SURE PATH) CE Patie nt Name: GOLDIE MORALES RD ON : 1975 (Age: 47) Sex: F 1 Insti tutio n: [facility] Locat ion: [facility] Date of Colle ction : 2022 Date of Acces carmella: 023 Repor raeann: 023 12:34 Resul ts to: Leonor jc MD Not Available [facility] (Outpatient) [address] [facility], [place], [address], 11/07/2022 12:48:52 03/26/19 25 03/27/2024 TSH TSH 2.28 uIU/m L 0.50-6 .00 The Ameri can Colle ge of Endoc rinol ogy and Ameri can Thyro id Assoc iatio n recom mend goal TSH value s betwe en 0.4-4 .0 mIU/m L. Not Available [address], [address], 03/27/2024 11:31:41 03/26/1903/27/2024 LIPID PANEL cholesterol 183 mg/dL <200 mg/dl Zenon able 200-2 39 mg/dl Borde rline High >240 mg/dl High Not Available [address], [address], 03/27/2024 12:25:56 03/26/19 25 03/27/2024 LIPID PANEL triglyceride s 74 mg/dL <150 mg/dL Nara l 150-1 99 mg/dL Borde rline High 200-4 99 mg/dL High >500 mg/dL Very High Not Available [address], [address], 03/27/2024 12:25:56 03/26/1903/27/2024 LIPID PANEL direct HDL 72 mg/dL <40 mg/dl - Major Risk for CHD >60 mg/dl - Negat jack Risk for CHD Not Available [address], [address], 03/27/2024 12:25:56 03/26/1903/27/2024 GLUCO SE glucose 96 mg/dL 70-100 Not Available [address], [address], 03/27/2024 12:25:57 03/26/1903/27/2024 DIREC T LDL direct LDL 89 mg/dL RISK CATEG ORY LDL GOAL _ CHD or CHD Risk Equiv alent s <100 mg/dl (10-y ear risk >20%) 2+ Risk Facto rs <130 mg/dl (10-y ear risk <= 20%) 0-1 Risk Facto r??? <160 mg/dl ??? Almmoises t all peopl e with 0-1 risk facto r have a 10 year risk <10%, thus 10 year risk asses ment in peopl e with 0-1 risk facto r is not neckatty phoebe. Not Available [facility] [address] [facility], [place], [address], 03/27/2024 12:25:58 03/26/19 25 03/31/2024 PROGE STERO NE, LC/MS progesterone , lc/MS <0.1 NG/mL Adult Femal e Refer ence Range s for Proge stero ne: Pre-M enopa usal Mid Folli cular : < or = 0.3 ng/mL Pre-M enopa usal Surge : 0.1-1 .5 ng/mL Pre-M enopa usal Mid Lutea l: 6.7-2 2.2 ng/mL Postm enopa usal Phase : < or = 0.2 ng/mL This test was ines johnson and its maggy tical perfo rmanc e kenzie cteri stics have been deter mined by [facility]. It has not been clear ed or appro cb by FDA. This assay has been valid ated pursu ant to the CLIA regul ation s and is used for clini brissa purpo ses. Not Available [facility] [address], [place], [address], 03/31/2024 19:17:30 04/07/19 22 04/07/2021 US, raamkrishna t CLINIC AL HISTOR Y: Right breast upper outer quadra nt pain. Right breast lower inner quadra nt cysts. Left breast upper inner quadra nt asymme try. Follow -up. TECHNI QUE: Target ed sonogr aphy of the palpab le abnorm ality is perfor med. COMPAR JEANA: None. FINDIN GS: Right breast : There is a 0.8 x 0.4 x 0.7 cm group of cysts 5:00 5 cm from the nipple . This has not signif icantl y change d. In the area of the patien t's right breast pain, 10:00, the breast tissue appear s unrema rkable . There is no suspic ious mass or shadow ing. Left breast : There is focal hetero geneou s tissue in the left breast 10:00 6 cm from the nipple . This is not signif icantl y change d from the prior study. IMPRES CARMELLA: 1. Benign group of cysts in the right breast . 2. No focal abnorm ality in the area of the patien t's right breast pain. 3. No signif icant change in hetero geneou s left breast tissue . No sonogr aphic eviden ce of malign dominique. Please see the same day mammog key report . Readin g Physic ajit: Brandee Carlson ms [address] (Imaging) [address] , [place], [address], 04/07/2021 13:42:58 04/07/19 22 04/07/2021 MAMMO , diagn ostic , tomos ynthe sis, unila teral CLINIC AL HISTOR Y: Left breast asymme try. Right breast upper outer quadra nt pain. TECHNI QUE: 3D mammog key (tomos ynthes is) and 2D mammog key (C-vie w) imagin g are perfor med. CC and MLO views of the left breast are obtain ed. A left ML view and left compre ssion CC view are added. Images are review ed with the [employer] CAD system . COMPAR JEANA: 08/04/19 21, , FINDIN GS: The breast parenc hyma is compos ed of fatty and fibrog landul ar elemen ts. There are no domina nt masses , suspic ious microc alcifi cation s or areas of jackeline ectura l distor tion. An asymme try within the medial aspect of the left breast has not signif icantl y change d since . It remain s more promin ent than on the mammog goran. Target ed ultras ound his perfor med of a group of cysts in the right breast 5:00 5 cm from the nipple , an area of pain in the right breast , and hetero geneou s tissue in the left breast 10:00 6 cm from the nipple . Ultras ound Findin gs: Right breast : There is a 0.8 x 0.4 x 0.7 cm group of cysts 5:00 5 cm from the nipple . This has not signif icantl y change d. In the area of the patien t's right breast pain, 10:00, the breast tissue appear s unrema rkable . There is no suspic ious mass or shadow ing. Left breast : There is focal hetero geneou s tissue in the left breast 10:00 6 cm from the nipple . This is not signif icantl y change d from the prior study. IMPRES CARMELLA: Benign right breast cyst. No focal abnorm ality in the area of the patien t's right breast pain. Stable left breast fibrog landul ar tissue . The patien t should return in 6 months for screen ing of both breast s. This facili ty uses a remind er system with a target date for the next mammog goran. Breast densit y: B. There are scatte red areas of fibrog landul ar densit y. BI-RAD S: 2 BENIGN Readin g Physic ajit: Brandee Carlson ms [email or web address] (Imaging) [address], [place], [address], 04/07/2021 13:42:58 04/26/19 23 04/26/2022 audio logic asses sment (PROC ) No observ ation record ed. [email or web address] [facility] [address], [place], [address], 05/24/2022 13:35:18 04/10/19 24 04/10/2023 MAMMO , scree brunilda, tomos ynthe sis, bilat eral MAMMO, SCREEN , LAKIA, BILAT: 04/10/19 24. BI-RAD S: 0 CLINIC AL: 47-yea r old Female for Bilate ral Screen ing Mammog goran. No person al or first- degree family histor y of breast cancer . Walker castorena report ed family histor y of breast cancer : matern al aunt. PRIOR EXAMS: Review ed previo us images from 2021, 2020 and 2018. MAMMOG KEY TECHNI QUE: 3D mammog key (tomos ynthes is) and 2D mammog key (C-vie w) images are genera raeann. Images review ed with a CAD system . DENSIT Y B. There are scatte red areas of fibrog landul ar densit y. MAMMOG KEY FINDIN GS Right: No suspic ious mass, asymme try, microc alcifi cation , or other abnorm ality seen. Left: Inner Centra l, 4 cm from nipple , Middle depth, measur ing 1.5 cm: There is questi onable change in a medial left breast asymme try. On one view it appear s stable . On the MLO view it appear s more dense. It should be furthe r evalua raeann with compre ssion views and target ed ultras ound. Additi onal imagin g evalua tion needed . CONCLU CARMELLA Right * No eviden ce of malign dominique. Left * Incomp lete - Needs additi onal imagin g evalua tion. RECOMM ENDATI ONS Left: Inner Centra l, 4 cm from nipple , Middle depth * Furthe r evalua tion with diagno stic mammog key and diagno stic ultras ound. ADMINI STRATI VE: A lay summar y was mailed to your patien kell alejandra the result s and recomm endati ons for follow -up. OVERAL L ASSESS MENT CATEGO RY BI-RAD S-0: Incomp lete - Needs additi onal imagin g evalua tion. ELECTR ONICAL LY SIGNED : Brandee Carlson ms, M.D. on 2023 at 01:58: 52 PM Readmarce collier Physic ajit: Brandee Carlson ms [id number] [facility] (Imaging) [address], [place], [address], 04/10/2023 17:59:10 05/10/19 24 05/10/2023 MAMMO , diagn ostic , tomos ynthe sis, unila teral MAMMO, DIAG, LAKIA, UNI, LEFT, US, BREAST , LEFT: 05/10/19 24 BI-RAD S: 2 CLINIC AL: 47-yea r old Female for Left Diagno stic Mammog goran and Left Diagno stic Breast U/S that is a recall from Screen ing on 2023. No person al or first- degree family histor y of breast cancer . Walker castorena report ed family histor y of breast cancer : matern al aunt. PRIOR EXAMS: Review ed previo us images from 2023, 2021, 2020 and 2018. MAMMOG KEY TECHNI QUE 3D mammog key (tomos ynthes is) and 2D mammog key images (C-vie w or digita l) are genera raeann. Images review ed with a CAD system . ULTRAS OUND TECHNI QUE: Real-t jerson ultras ound exam was perfor med focuse d to the area of clinic al and/or imagin g concer n. DENSIT Y Left: B. There are scatte red areas of fibrog landul ar densit y. MAMMOG KEY FINDIN GS Left (findi ng-1): Inner Centra l, 4 cm from nipple : The patien t return s for furthe r evalua tion of a left breast asymme try that is chroni c, but appear ed slight ly more promin ent on the MLO view of the recent screen ing mammog goran. With target ed compre ssion there is no worris ome change . ULTRAS OUND FINDIN GS Left (findi ng-1): Upper Inner at 10:00, 6 cm from nipple . Previo us report : Inner Centra l, 4 cm from nipple : There is persis tent hetero geneou s tissue in the medial left breast simila r to the 04/07/19 22 ultras ound. No worris ome change is apprec iated. No suspic ious sonogr aphic findin g with typica lly benign findin gs noted. CONCLU CARMELLA Left * No eviden ce of malign dominique with benign findin gs. RECOMM ENDATI ONS Bilate ral * Annual screen ing mammog key. COMMEN TS: The above findin gs and recomm endati ons were discus sed with the patien t at the time of the exam. ADMINI STRATI VE: A lay summar y was mailed to your patien t amber khouryg the result s and recomm endati ons for follow -up. OVERAL L ASSESS MENT CATEGO RY BI-RAD S-2: Benign Findin gs. The [employer] e [employer] o[employer] recomm ends annual screen ing mammog key beginn ing at age 40 for women with averag e risk of breast cancer . ELECTR ONICAL LY SIGNED : Brandee Carlson ms, M.D. on 2023 at 10:51: 45 AM Josefina Brown ajit: Rockjoao Carlson ms [id number] [facility] (Imaging) [address] , [place], [address], 05/10/2023 14:11:45 05/10/19 24 05/10/2023 US, breas t MAMMO, DIAG, LAKIA, UNI, LEFT, US, BREAST , LEFT: 05/10/19 BI-RAD S: 2 CLINIC AL: 47-yea r old Female for Left Diagno stic Mammog goran and Left Diagno stic Breast U/S that is a recall from Screen ing on 2023. No person al or first- degree family histor y of breast cancer . Walker castorena report ed family histor y of breast cancer : matern al aunt. PRIOR EXAMS: Review ed previo us images from 2023, 2021, 2020 and 2018. MAMMOG KEY TECHNI QUE 3D mammog key (tomos ynthes is) and 2D mammog key images (C-vie w or digita l) are genera raeann. Images review ed with a CAD system . ULTRAS OUND TECHNI QUE: Real-t jerson ultras ound exam was perfor med focuse d to the area of clinic al and/or imagin g concer n. DENSIT Y Left: B. There are scatte red areas of fibrog landul ar densit y. MAMMOG KEY FINDIN GS Left (findi ng-1): Inner Centra l, 4 cm from nipple : The patien t return s for furthe r evalua tion of a left breast asymme try that is chroni c, but appear ed slight ly more promin ent on the MLO view of the recent screen ing mammog goran. With target ed compre ssion there is no worris ome change . ULTRAS OUND FINDIN GS Left (findi ng-1): Upper Inner at 10:00, 6 cm from nipple . Previo us report : Inner Centra l, 4 cm from nipple : There is persis tent hetero geneou s tissue in the medial left breast simila r to the 04/07/19 22 ultras ound. No worris ome change is apprec iated. No suspic ious sonogr aphic findin g with typica lly benign findin gs noted. CONCLU CARMELLA Left * No eviden ce of malign dominique with benign findin gs. RECOMM ENDATI ONS Bilate ral * Annual screen ing mammog key. COMMEN TS: The above findin gs and recomm endati ons were discus sed with the patien t at the time of the exam. ADMINI STRATI VE: A lay summar y was mailed to your patien t amber alejandra the result s and recomm endati ons for follow -up. OVERAL L ASSESS MENT CATEGO RY BI-RAD S-2: Benign Findin gs. The [employer] e [employer] o[employer] recomm ends annual screen ing mammog key beginn ing at age 40 for women with averag e risk of breast cancer . ELECTR ONICAL LY SIGNED : Brandee Carlson ms, M.D. on 2023 at 10:51: 45 AM Josefina collier Physic ajit: Brandee Carlson ms [id number] [facility] (Imaging) [address], [place], [address], 05/10/2023 14:11:45 04/15/19 25 04/15/2024 MAMMO , scree brunilda, tomos ynthe sis, bilat eral MAMMO, SCREEN , LKAIA, BILAT: 025. BI-RAD S: 1 CLINIC AL: 48-yea r old Female for Bilate ral Screen ing Mammog goran. [facility] 12.7%. No person al or first- degree family histor y of breast cancer . Walker castorena report ed family histor y of breast cancer : matern al aunt. PRIOR EXAMS: Review ed previo us images from 2023. MAMMOG KEY TECHNI QUE: 3D mammog key (tomos ynthes is) and 2D mammog key (C-vie w) images are genera raeann. Images review ed with a CAD system . DENSIT Y B. There are scatte red areas of fibrog landul ar densit y. MAMMOG KEY FINDIN GS Bilate ral: No suspic ious mass, asymme try, microc alcifi cation , or other abnorm ality seen. CONCLU SIONNo eviden ce of malign dominique. RECOMM ENDATI ONS Bilate ralAnn ual screen ing mammog key. ADMINI STRATI VE: A lay summar y was mailed to your patien kell alejandra the result s and recomm endati ons for follow -up. OVERAL L ASSESS MENT CATEGO RY BI-RAD S-1: Negati ve. The [employer] o[employer] recomm ends annual screen ing mammog key beginn ing at age 40 for women with averag e risk of breast cancer . ELECTR ONICAL LY SIGNED : Akshat Krishnan M.D. on 2024 at 02:03: 10 PM Josefina Brown ajit: Akshat Krishnan [id number] [facility] (Imaging) [address], [place], [address], 04/15/2024 16:50:53 Result Notes None recorded. Problems Name Problem SNOMED Code Status Onset Date Resolution Date Notes Provider Name and Address Organization Details Recorded Time Recurrent major depressive disorder with onset [id number] Active Aubrie Toribio NP [address] [place] [address], [phone] , [facility] 6 07:38:02 Allergic conjunctiviti s 823328644 Active ALDO Shirley [address] [place] [address], [phone] , [facility] 5 09:40:55 Recurrent major depression 65344687 Active 2017 Vani Ashraf MD [address] [place] [address], [phone] , [facility] 3 11:21:43 Rheumatoid arthritis 81622133 Active 2019 Vani Ashraf MD [address] [place] [address], [phone] , [facility] 3 11:21:48 Problem Notes None recorded. Procedures Surgical History Date Name Laterality Status Provider Name and Address Organization Details Recorded Time 01/23/20 23 Refraction completed Debra Villafuerte, OD [address], [place], , [facility] 01/22/2023 10:31:38 01/21/20 23 OMT completed Laura Correa, DO [address] [place] [address], , [facility] 01/22/2023 11:04:58 12/23/19 21 Refraction completed Debra Villafuerte, OD [address], [place], , [facility] 12/22/2020 09:17:21 05/19/19 21 prevention-card iovascular risk reduction counseling completed Kristin Cordero [facility] 05/12/2020 11:04:30 05/19/19 21 prevention-gerard al alcohol misuse screening completed Kristin Cordero [facility] 05/12/2020 11:04:30 12/23/19 14 Cerumen Removal completed Aubire Toribio NP [address] [place] [address], , [facility] 12/23/2013 06:07:04 09/22/19 13 Cerumen Removal completed Dangelo Raygoza MD [address] [place] [address], , [facility] 09/21/2012 11:15:57 endometrial ablation completed Vani Ashraf MD [address] [place] [address], , [facility] 11/01/2022 11:27:16 section completed Vani Ashraf MD [address] [place] [address], , [facility] 11/01/2022 11:27:26 Shoulder joint surgery completed Vani Ashraf MD [address] [place] [address], , [facility] 11/01/2022 11:27:34 Imaging Results Imaging Date Name Status LastModified by Organiz [facility] Details LastModified Time 04/07/2021 US, breast completed [id number] [facility] (Imaging) [address] [place], [address], 04/07/2021 13:42:58 04/07/2021 MAMMO, diagnostic, tomosynthesis, unilateral completed [facility] (Imaging) [address] [place], [address], 04/07/2021 13:42:58 04/26/2022 audiologic assessment (PROC) [place] [address] [facility] [address], [place], [address], 05/24/2022 13:35:18 04/10/2023 MAMMO, screening, tomosynthesis, bilateral completed [id number] [facility] (Imaging) [address] [place], [address], 04/10/2023 17:59:10 05/10/2023 MAMMO, diagnostic, tomosynthesis, unilateral completed [id number] [facility] (Imaging) [address] [place], [address], 05/10/2023 14:11:45 05/10/2023 US, breast completed [email or web address] [facility] (Imaging) [address] [place], [address], 05/10/2023 14:11:45 04/15/2024 MAMMO, screening, tomosynthesis, bilateral completed [email or web address] [place] [address] (Imaging) [address] [place], [address], 04/15/2024 16:50:53 Procedure Notes None recorded. Medical Equipment None Reported. Allergies No known drug allergies Medications Name Sig Start Date Stop Date Status Note LastModified by Organization Details LastModified Time bupropion HCl SR 150 mg tablet,12 hr sustained- release to wean off med - 1 tab bid x 1 week, then 1 tab daily x 2wk; then 1/2 tab daily x 2wk, then stop 01/30 completed Not Available Not Available Not Available fluconazol e 150 mg tablet TK 1 T PO Q WEEK FOR 30 DAYS 10/25 completed Not Available Not Available Not Available sulfasalaz ine 500 mg tablet,del ayed release Take 1 tablet twice a day by oral route for 30 days. 05/18 completed 05/19/19 21 no longer taking ljl Not Available Not Available Not Available peg-electr olyte solution 420 gram oral solution MIX AND DRINK DIRECTED 03/26 completed Not Available Not Available Not Available oxycodone- acetaminop hen 5 mg-325 mg tablet active Not Available Not Available Not Available amoxicilli n 875 mg tablet Take 1 tablet every 12 hours by oral route for 10 days. 05/08 completed Not Available Not Available Not Available methotrexa te sodium 2.5 mg tablet TAKE 8 TABLETS BY MOUTH EVERY WEEK. 11/01 completed Not taking at this time 11/01/22 JF Not Available Not Available Not Available bupropion HCl 75 mg tablet TAKE 1 TABLET BY MOUTH TWICE A DAY FOR 2 WEEKS, THEN TAKE 1 TABLET DAILY UNTIL FINISHED .. 01/30 completed Not Available Not Available Not Available fluoxetine 10 mg capsule TAKE 1 CAPSULE BY MOUTH DAILY FOR 1 WEEK THEN INCREASE TO 2 CAPSULES DAILY 01/17 completed Not Available Not Available Not Available docusate sodium 100 mg capsule active Not Available Not Available N ot Available folic acid 1 mg tablet TAKE 5 TABLETS BY MOUTH DAILY. 11/01 completed Not taking at this time 11/01/22 JF Not Available Not Available Not Available codeine 10 mg-guaifen esin 100 mg/5 mL oral liquid Take 10 mL every 4 hours by oral route for 4 days. 02/14 completed Not Available Not Available Not Available bisacodyl 5 mg tablet,del ayed release TAKE 4 TABLETS BY MOUTH DIRECTED 03/26 completed Not Available Not Available Not Available hydroxychl oroquine 200 mg tablet TAKE 2 TABLETS DAILY FOR 5 DAYS A WEEK AND 1 TABLET DAILY FOR 2 DAYS A WEEK active Not Available Not Available No t Available ibuprofen 600 mg tablet active Not Available Not Available Not Available norethindr one (contracep tive) 0.35 mg tablet 10/17 completed Not Available Not Available Not Available sertraline 50 mg tablet Take 1.5 TABLETS EVERY DAY by oral route. active Not Available Not Available No t Available progestero ne micronized 100 mg capsule active Not Available Not Available Not Available escitalopr am 20 mg tablet TAKE 1/2 TABLET EVERY DAY FOR 1 WEEK THEN INCREASE TO 1 TABLET DAILY.. 05/01 completed Not Available Not Available Not Available cyclobenza tonja 5 mg tablet TAKE 1 TABLET BY MOUTH THREE TIMES DAILY FOR 10 DAYS NEEDED 03/26 completed NOT TAKING 03/26/24 mk Not Available Not Available Not Available bupropion HCl XL 300 mg 24 hr tablet, extended release TAKE 1 TABLET DAILY active Not Available Not Available No t Available bupropion HCl XL 150 mg 24 hr tablet, extended release TAKE 1 TABLET DAILY 05/18 completed Not Available Not Available Not Available Gas Relief Extra Strength 125 mg chewable tablet CHEW AND SWALLOW 3 TABLETS WHILE DRINKING THE SECOND DOSE OF PREP. 03/26 completed Not Available Not Available Not Available Humira Pen 40 mg/0.8 mL subcutaneo us kit 09/16 completed Not Available Not Available Not Available Enbrel SureClick 50 mg/mL (1 mL) subcutaneo us pen injector 11/01 completed Not taking at this time 11/01/22 JF Not Available Not Available Not Available Plus (calcium carbonate) 27 mg iron-1 mg tablet active Not Available Not Available Not Available Humira(CF) Pen 40 mg/0.4 mL subcutaneo us kit Inject 0.4 mL every 2 weeks by subcutan eous route. 09/16 completed Not Available Not Available Not Available Flowflex COVID-19 Antigen Home Test kit 11/01 completed Not taking at this time 11/01/22 JF Not Available Not Available Not Available Paxlovid 300 mg (150 mg x 2)-100 mg tablets in a dose pack TAKE 1 DOSE PK TWICE A DAY BY ORAL ROUTE FOR 5 DAYS. 11/01 completed Not taking at this time 11/01/22 JF Not Available Not Available Not Available Vitals Date Recorded Body weight Body mass index (BMI) Body height Oxygen saturation Oxygen saturation in Arterial blood by Pulse oximetry Heart rate Respiratory rate Systolic blood pressure Diastolic blood pressure Provider Name and Address Organization Details Last Updated DateTime 3 77874.4 3 g 28.1 kg/m2 157.48 cm 99 % 99 % 75 /min 12 /min 124 mm[Hg] 80 mm[Hg] Jessica Russell , [facility] 3 11:02:17 Date Recorded Body height Body mass index (BMI) Body weight Oxygen saturation Oxygen saturation in Arterial blood by Pulse oximetry Heart rate Respiratory rate Systolic blood pressure Diastolic blood pressure Provider Name and Address Organization Details Last Updated DateTime 3 157.48 cm 28.9 kg/m2 06196.5 9 g 98 % 98 % 91 /min 12 /min 126 mm[Hg] 70 mm[Hg] Jessica Russell [facility] 3 10:19:30 Date Recorded Body weight Body mass index (BMI) Body height Heart rate Systolic blood pressure Diastolic blood pressure Provider Name and Address Organization Details Last Updated DateTime 5 77057.7 8 g 29.3 kg/m2 157.48 cm 81 /min 130 mm[Hg] 80 mm[Hg] Aditi Mac [facility] 5 14:14:36 Social History Question Answer Notes LastModified by Organizat ion Details LastModified Time Tobacco Smoking Status Never Smoker Jj Carroll stephanie [facility] 09/21/2012 10:51:20 What Is Your Level Of Alcohol Consumption? Occasional Rarely - 1 3x Week [email or web address] Information not available 11/01/2022 Do You Wear A Helmet When Biking? Yes Information not available 01/31/2018 What Is Your Level Of Caffeine Consumption? Moderate 2 Cups Daily Information not available 02/06/2019 How Much Tobacco Do You Chew? None Information not available 09/21/2012 Are You Currently Employed? Yes [email or web address] Information not available 11/01/2022 What Type Of Diet Are You Following? REGULAR Information not available 01/18/2016 Which Illicit Or Recreational Drugs Have You Used? None Information not available 02/27/2019 Do You Or Have You Ever Used E-cigarettes Or Vape? Never Used Electronic Cigarettes Information not available 02/27/2019 What Is The Highest Grade Or Level Of School You Have Completed Or The Highest Degree You Have Received? 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 No [email or web address] Information not available 11/01/2022 How Many Days In The Past Year Have You Had A Heavy Drinking Consumption (4+ Female, 5+ Male)? 0 Information not available 01/01/2013 Are There Any Guns Present In Your Home? Yes Information not available 09/21/2012 Do You Use Insect Repellent Routinely? Yes [email or web address] Information not available 11/01/2022 Live Alone Or With Others? With Others Information not available 02/06/2019 Patient Has Health Care Proxy Signed And In Chart No Addis Kapoor, Will Mail Us A Copy. 01/31/18 Information not available 01/31/2018 Marital Status Veronika Informati on not available 01/01/2013 Mosquito Repellent Used Routinely Yes Information not available 09/21/2012 What Was The Date Of Your Most Recent Tobacco Screening? 03/26/2024 [email or web address] Information not available 03/26/2024 How Many Children Do You Have? 2 Robby And Zac Information not available 01/01/2013 What Is Your Relationship Status? [email or web address] Information not available 11/01/2022 Seat Belts Used Routinely Yes Information not available 09/21/2012 Are You Sexually Active? Yes [email or web address] Information not available 11/01/2022 Smoke Alarm In Home Yes Information not available 09/21/2012 Do You Have Smoke And Carbon Monoxide Detectors In Your Home? Yes [email or web address] Information not available 11/01/2022 Are You Passively Exposed To Smoke? No [email or web address] Information not available 11/01/2022 Do You Or Have You Ever Used Smokeless Tobacco? Never Used Smokeless Tobacco Information not available 02/27/2019 How Much Tobacco Do You Smoke? No Information not available 02/27/2019 What Types Of Sporting Activities Do You Participate In? Softball Information not available 01/18/2016 General Stress Level High Information not available 05/18/2020 Do You Use Any Illicit Or Recreational Drugs? No [email or web address] Information not available 03/26/2024 Do You Use Sunscreen Routinely? Yes Information not available 09/21/2012 Do You Or Have You Ever Used Any Other Forms Of Tobacco Or Nicotine? No [email or web address] Information not available 11/01/2022 How Many Days In The Past Year Have You Consumed 4 Or More Drinks? -1 Information not available 03/26/2024 Sex: Female Functional Status Question Answer Note LastModified by Organizat ion Details LastModified Time What is your exercise level? Occasional [email or web address] Information not available 11/01/2022 Mental Status None recorded. Family History Relationship Description Onset Age of this Age Resolved Age Notes LastModified by Organization Details LastModified Time Mother Chronic back pain disabl ed 20yr Not available 01/01/2013 08:41:00 Mother Diabetes mellitus [email or web address] Not available 2018 09:25:42 Paternal Aunt Rheumatoid arthritis of RA [email or web address] Not available 03/23/2019 08:07:20 Unspecified Relation Rheumatoid arthritis cousin [email or web address] Not available 2019 08:07:48 Notes:sister- leaky gut synd valentino mat aunt - premen breast cancer. Medical History No medical history recorded. Gynecological HistoryNo gynecological history recorded. Obstetrics History GPAL:G 0 P 0 0 0 0 Immunizations Vaccine Type Date Status Note Provider Nam e and Address Organization Details Recorded Time Tdap 3 completed Not Available [facility] 03/21/2019 02:16:07 Influenza, split virus, quadrivalent, PF 4 completed Not Available [facility] 03/21/2019 02:18:56 Influenza, split virus, trivalent, PF 4 completed Not Available [facility] 03/21/2019 02:19:21 Influenza, split virus, quadrivalent, PF 5 completed Not Available [facility] 03/21/2019 02:29:20 Influenza, split virus, quadrivalent, PF 6 completed Not Available [facility] 03/21/2019 02:35:34 MMR 5 completed ASHLYN Ness [facility] 12/31/2013 13:15:14 [facility] 13:15:14 Hep B, unspecified formulation 7 completed ASHLYN Ness, [facility] 12/31/2013 13:18:04 Hep B, unspecified formulation 2 completed ASHLYN Ness, [facility] 12/31/2013 13:18:04 Hep B, unspecified formulation 7 completed ASHLYN Ness, [facility] 12/31/2013 13:18:04 Influenza, split virus, quadrivalent, PF 7 completed Not Available [facility] 03/21/2019 02:32:28 Influenza, split virus, quadrivalent, PF 8 completed Not Available [facility] 03/21/2019 02:34:54 Influenza, split virus, quadrivalent, PF 9 completed Not Available [facility] 03/21/2019 02:34:11 Pneumococcal conjugate PCV 13 0 completed Samantha Fajardo RN null, [facility] 03/27/2019 08:45:29 Influenza, split virus, quadrivalent, PF 0 completed Carli Garcia RN [facility], [facility] 01/25/2020 14:18:51 Td (adult), 2 Lf tetanus toxoid, preservative free, adsorbed 3 completed Vani Ashraf MD [address] [place] [address], [phone], [facility] 11/01/2022 11:38:05 Influenza, split virus, trivalent, PF 5 completed Vani Ashraf MD [address] [place] [address], [phone], [facility] 03/26/2024 14:41:27 Past Encounters Encounter ID Performer Location Encounter Start Date Encounter Closed Date Diagnosis/Indication Diagnosis SNOMED-CT Code Diagnosis ICD10 Code Diagnosis Note [id number] [facility], [address] [place] [address] 11/13/2010 11:39:10 11/13/2010 15:50:[id number] [facility], [address] [place] [address] 09/21/2012 10:37:37 09/21/2012 11:24:21 [id number] Aubrie Toribio NP , [facility], [address] [place] [address] 01/01/2013 08:10:13 01/01/2013 09:15:11 Adult health examination 919578112 see Risk Assessment and Lifestyle Change Counseling section above Counseling [id number] Administra tion of diphtheria, pertussis, and tetanus vaccine 410299014 Recurrent major depressive disorder with onset 84414722 [id number] Yoana Dos Santos MA , [facility], [address] [place] [address] 04/28/2013 07:30:12 04/28/2013 11:55:33 Acute sinusitis 19453181 Pt presents today for evaluation of facial pain and congestion that has been persisting for several days. Pt has tried OTC remedies without relief. Pt history and physical exam are consistent with sinusitis. Discussed pathogenes is of sinusitis. Recommend pt continue with the supportive care of nasal saline, steam/hot showers, pushing fluids, ibuprofen or tylenol as needed for pain, cough syrup as needed for cough and rest. Due to the severity and persistanc e of pt symptoms we will also treat with antibiotic s as listed below. Pt will follow up if symptoms persist or worsen at any time. Influenza vaccine needed [id number] [facility], [address] [place] [address] 09/22/2013 10:14:44 09/22/2013 10:55:53 Recurrent major depressive disorder with onset 70094967 wants to resume bupropion - advised to complete the weaning process first and call for Rx. Enc counseling options, parent groups Fatigue 09787910 will ch leonidas other causes of fatigue and f/u per results [id number] Kym Goss , [facility], [address] [place] [address] 12/22/2013 15:59:26 12/22/2013 16:55:48 Recurrent major depressive disorder with onset 37213940 improved - cont bid dosing of bupropion Influenza vaccine needed [id number] 106 Impacted cerumen 23489926 Hearing loss 92438494 he aring testing in office shows mild loss [id number] Aubrie Toribio NP , [facility], [address] [place] [address] 02/12/2014 14:23:42 02/12/2014 15:33:35 Adult health examination 059831358 see Risk Assessment and Lifestyle Change Counseling section above Counseling [id number] Recurrent major depressive disorder with onset 40470766 Trial of XL to avoid missed doses. COnsider inc to 400mg daily dose of SR if insurance does not cover Discussed good self care during darker months - [id number] Aubrie Toribio NP , [facility], [address] [place] [address] 09/16/2014 08:20:01 09/16/2014 08:48:25 Recurrent major depressive disorder with onset 18826924 stable off meds names of therapists given consider restarting med in fall if mood drops with darker days Hearing loss 03919740 fo rmal testing showed moderate right hearing loss - plans to trial a hearing device this summer Sciatica 66553123 stretc hes, ergonomics , no lifting consider PT referral [id number] ALDO Shirley, [facility], [address] [place] [address] 11/26/2014 09:14:50 11/26/2014 09:33:46 Allergic conjunctivitis 650444876 advised warm compresses qid x 10 min Optive refresh to alleviate itching. Reassuranc e re contagious ness in light of her 5 yo birthday gathering of family and children. [id number] ASHLYN Candelaria, [facility], [address] [place] [address] 01/20/2015 06:56:12 01/20/2015 09:46:23 Active or passive immunization 077723159 Z23 [id number] MAX Charles, [facility], [address] [place] [address] 07/20/2015 16:00:25 07/20/2015 16:53:56 Recurrent major depressive disorder with onset 45018773 O99.345 per up-to-date - will trial 450mg dose rtc 6wk - call sooner with any side effects or concerns. continue therapy, good self care. 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, [address] [place] [address] 09/19/2015 15:23:57 09/19/2015 15:58:01 Eruption 478764169 R21 She will try OTC antifungal faithfully bid x 2-3wkrepor t persistent sx Recurrent major depressive disorder with onset 15826806 O99.345 Discussed options: will start fluoxetine low dose -reviewed risks, side effectsrtc 6-8wk - update via portal - call sooner with concerns [id number] Anabell López , [facility], [address] [place] [address] 12/14/2015 11:06:53 12/14/2015 15:23:56 Active or passive immunization 798938171 Z23 [id number] Aubrie Toribio NP , [facility], [address] [place] [address] 01/18/2016 14:25:27 01/18/2016 14:56:27 Adult health examination 185142893 Z00.00 see Risk Assessment and Lifestyle Change Counseling section above Counseling 712416268 Z71 .9 Recurrent major depressive disorder with onset 97743851 O99.345 stable [id number] CHASE Munoz , [facility], [address] [place] [address] 01/25/2016 15:51:03 01/30/2016 11:39:00 Acute upper respiratory infection 03712771 J06.9 Educated patient that URI is a viral illness of the upper airways. It is not bacterial and does not benefit from antibiotic s. Average duration of URI is 7-10 days but in a recent trial, treatment at 7-10 days of illness with antibiotic s, intranasal steroids, or placebo did not alter natural history at 3 weeks. Recommende d symptomati c treatments including NSAIDS, semi-uprig ht sleep position, antihistam kassy at HS, limited course of nasal sympathomi metics and/or cough syrups, and nasal saline rinses with soft squeeze bottle or Neti pot. Return for fevers > 101 for 3 days, worsening sinus pain, or failure to resolve in 2-4 weeks. [id number] MAX Charles, [facility], [address] [place] [address] 02/15/2016 09:21:09 02/16/2016 14:10:33 Cough 14878675 R05 Rib pain in the setting of prolonged cough -reassured not likely rib fx - prob costochond ral injury.Sug gest heat, stretches, NSAIDs.RTC prn. [id number] MAX Charles, [facility], [address] [place] [address] 10/17/2016 14:21:17 10/17/2016 14:45:09 Recurrent major depression 47849068 F33.9 Tryslower taper off med.report persistent RLs [id number] MAX Charles, [facility], [address] [place] [address] 01/30/2017 09:25:02 01/30/2017 10:19:48 Adult health examination 184993735 Z00.00 see Risk Assessment and Lifestyle Change Counseling section above Counseling 018431658 Z71 .9 Recurrent major depressive disorder with onset 61146336 O99.345 Active or passive immunization 449961959 Z23 Screening for malignant neoplasm of cervix 380223279 Z12.4 [id number] MAX Charles, [facility], [address] [place] [address] 01/31/2018 09:22:04 01/31/2018 10:05:26 Adult health examination 021651379 Z00.00 see Risk Assessment and Lifestyle Change Counseling section above Counseling 616239478 Z71 .9 Depression screening 171 911565 Z13.89 depression screening tool administer ed, entered into emr, scored and discussed, time greater than 7.5 minutes Active or passive immunization 887998852 Z23 Recurrent major depression 40176318 F33.9 stable on meds Screening mammography 24 [address] [facility] will obtain baseline mammo [id number] Debra Villafuerte, [facility], [facility] [address] [place] [address] 04/23/2018 09:21:19 04/23/2018 10:34:42 Ophthalmic examination and evaluation 74421808 Z01.00 ocular health wnl to extent seen OU; pt ed, RTC 1-2 yrs CEE or prn [id number] Aubrie Toribio NP FP, [facility], [address] [place] [address] 02/06/2019 09:00:22 02/06/2019 09:32:01 Adult health examination 634805352 Z00.00 see Risk Assessment and Lifestyle Change Counseling section above Counseling 352806278 Z71 .9 Depression screening 171 734325 Z13.89 depression screening tool administer ed, entered into emr, scored and discussed, time greater than 7.5 minutes Recurrent major depression 58644038 F33.9 if labs normal, pt wants to consider different SSRI -would recommend Lexapro and f/u 8wk after starting. Hand joint pain 35805042 8 M25.549 Candidiasis of vagina 72 717528 B37.3 Active or passive immunization 737258599 Z23 [id number] MAX Chalres, [facility], [address] [place] [address] 02/27/2019 09:49:00 02/27/2019 10:09:32 Lesion of vulva 871339521 N90.89 appears to be skin tears likely from recent yeast infection. Sx care reviewed. HSV cx pending. Vaginal irritation 91972 6004 N89.8 normal - discussed sx care [id number] Deacon Hernandez MD Rheumatol [facility], [address] [address] 03/23/2019 07:53:23 03/23/2019 17:20:58 Seropositive rheumatoid arthritis 941101355 M05.9 Active or passive immunization 283274490 Z23 [id number] MAX Leach, [facility], [address] [place] [address] 05/01/2019 08:11:44 05/01/2019 08:30:02 Recurrent major depressive disorder with onset 30980594 O99.345 Trial of lexapro, found it to be too sedating. Would like to restart bupropion as she was on in the past. Advised may have interactio ns w/RA meds. at higher doses. Will start at 150 mg and pt to review w/ rheum. at next f/u. Call office for new or worsening sx, f/u w/PCP as planned. Rheumatoid arthritis 698 52844 M06.9 F/u with rheumatolo gy - has upcoming appt [id number] Moy Shipley MD Rheumatol [address] [address] 05/11/2019 14:27:43 05/11/2019 15:47:21 Seropositive rheumatoid arthritis 750212753 M05.9 Patient still having symptoms, will increase methotrexa te to 20 mg/week. Check labs for disease activity and medication toxicity. Active or passive immunization 776193102 Z23 [id number] Aubrie Toribio NP , [facility], [address] [place] [address] 07/28/2019 13:45:14 07/31/2019 16:47:07 Vaginitis 00273226 N76.0 Due to persistent sx will treat weekly x4, preventive measures reviewed. RTC prn Angular cheilitis 870953 005 K13.0 discussed home remedies, prevention strategies . Report more frequent oral lesions - could be due to MTX Recurrent major depression 07282844 F33.9 stable on meds. Good supports in place [id number] Carli Garcia RN , [facility], [address] [place] [address] 01/25/2020 07:15:06 01/26/2020 08:48:26 Active or passive immunization 757152951 Z23 [id number] Moy Shipley MD Rheumatol [address] [address] 02/19/2020 07:38:16 02/19/2020 10:09:48 Seropositive rheumatoid arthritis 464000801 M05.9 Patient still having symptoms, especially after she went down on the methotrexa te because of mild liver dysfunctio n. Continue mtx 17.5 mg/week, folic acid 5 mg daily and add sulfasalaz ine 500 mg bid. Check labs for disease activity and medication toxicity. Side effects of sulfasalaz ine discussed with the patient, including but not limited to: allergic reaction, cytopenias , elevated liver enzymes, gastrointe stinal discomfort . Patient counselled that she will need regular blood testing to monitor for the side effects. Patient verbalized understand ing. Active or passive immunization 528295240 Z23 Patient got the flu shot and PCV-13. Long-term drug therapy 790311173 Z79.899 Monitor CBC and CMP. [id number] Aubrie Toribio NP , [facility], [address] [place] [address] 05/18/2020 09:15:03 05/25/2020 11:24:51 Adult health examination 808239412 Z00.00 see Risk Assessment and Lifestyle Change Counseling section above Counseling 092015232 Z71 .9 including cardiovasc ular risk reduction counseling Depression screening 171 969350 Z13.31 depression screening tool administer ed, entered into emr, scored and discussed, time greater than 7.5 minutes Screening for alcohol abuse 326914614 Z13.39 Recurrent major depression 73447340 F33.9 Will increase to 300mg - call with side effects or concerns. F/u 6-8wk. Rheumatoid arthritis 698 86176 M06.9 pt desires new rheum specialist . Will call with name. Screening mammography [address] [facility] [id number] Moy Shipley MD Rhe[facility] [place], [address] [address] 05/16/2020 08:02:37 05/16/2020 16:09:45 Seropositive rheumatoid arthritis 145134475 M05.9 Patient still having symptoms, she did not notice any improvemen t with sulfasalaz ine. Continue methotrexa te. Stop sulfasalaz ine. Start Humira. Check labs for disease activity and medication toxicity. Patient got flu ariana and PCV 13. COVID vaccine discussed, patient to hold methotrexa te one week after each dose. Side effects of Humira discussed with the patient, including but not limited to: injection site reactions, increased incidence of usual infections , serious infections (like TB), malignanci es, allergic reaction, demyelinat ing disease, heart failure, lupus-like syndrome, cytopenias . Patient counselled to stop the medication if fever or any other sign of infection and call his PCP or our office right away. Patient instructed not to have any live vaccines. Patient verbalized understand ing. Active or passive immunization 155559502 Z23 Patient got the flu shot and PCV-13. Long-term drug therapy 149062537 Z79.899 On MTX. Humira started today. Monitor CBC and CMP. [id number] Zoila Acosta NP , [facility], OFFICE [address] [place] [address] 05/27/2020 16:11:43 05/30/2020 15:46:20 Unilateral mastalgia 908350609 N64.4 Reassured. Exam wnl with no palpable abnormalit y noted. Offered sooner mammo with u/s but pt opted to wait and have mammo when scheduled in July. Discussed pain most likely will resolve prior to then but she should f/u for worsening sx. Also discussed pt should cont. to monitor the sx of right sided rib tightness . Only notes it on deep breathing and sounds muscular as it started after playing ball with her kids. F/u if worsening. [id number] Debra Villafuerte, OD [facility], [address] [address] 12/22/2020 08:29:40 12/22/2020 09:31:03 Dry eyes 175398880 H04.129 pt ed. recommend systane Ultra qid OU. Ophthalmic examination and evaluation 50116147 Z01.01 Presbyopia 74970428 H52. 4 [id number] Vani Ashraf MD , [facility], OFF[address] [place] [address] 11/01/2022 10:52:28 11/01/2022 17:34:42 Adult health examination 517646902 Z00.00 repeat pap 3 years if normallabs todaytd todaymammo due, order in Depression screening 171 750539 Z13.31 depression screening tool administer ed, 1 Screening for alcohol abuse 702269068 Z13.39 Alcohol use screening tool administer ed, 2 Screening for malignant neoplasm of colon 450180418 Z12.11 pt agrees to colonoscop y, aware risk missing cancer if not done Rheumatoid arthritis 698 16043 M05.9 stable, no current rheumoff MTX due to elevated LFTSrechec k todayoffer ed rheum consult, pt declines Recurrent major depression 45106878 F33.9 stable on med per pt Screening for malignant neoplasm of cervix 612025514 Z12.4 Active or passive immunization 630379388 Z23 [id number] Laura Correa DO , [facility], OFF[address] [place] [address] 01/20/2023 10:01:42 01/20/2023 11:02:21 Rheumatoid arthritis 70588548 M05.9 Under care of rheum. No longer on DMARDS. Strain of right trapezius muscle 9069824724 0367771 S29.012A Trial of cyclobenza tonja. Discussed indication s for new prescripti on, risks and benefits of medication , common side effects and how to manage, and reasons to notify prescriber of adverse effects or discontinu ation. May tyle prn tylenol or ibuprofen for pain, advised to use heat for 15min every 2 hours to help relax the muscles, and soak in 2 cups epsom salt bath 1x daily for 20min to help with muscle relaxation . May ask to be added to OMT cancellati on list for further treatment. Somatic dy sfunction of rib 343965673 M99.08 Patient received the follow osteopathi c manipulati ve techniques : BLT, FPR. Tolerated well. Patient should drink plenty of fluids, and continue with stretches as directed. Patient may take Tylenol or Ibuprofen as needed as well as alternatin g heat/ice to the affected area. The patient should call with any worsening symptoms and follow-up prn. Somatic dy sfunction of upper limb 821339908 M99.07 Patient received the follow osteopathi c manipulati ve techniques : FPR, myofascial release . Tolerated well. Patient should drink plenty of fluids, and continue with stretches as directed. Patient may take Tylenol or Ibuprofen as needed as well as alternatin g heat/ice to the affected area. The patient should call with any worsening symptoms and follow-up prn. Chronic neck pain 289068 0798 107 M54.2 See above. Cervical s omatic dysfunction 315988016 M99.01 Patient received the follow osteopathi c manipulati ve techniques : myofascial release. Tolerated well. Patient should drink plenty of fluids, and continue with stretches as directed. Patient may take Tylenol or Ibuprofen as needed as well as alternatin g heat/ice to the affected area. The patient should call with any worsening symptoms and follow-up prn. [id number] Debra Villafuerte, OD [facility], [facility] [address] [place] [address] 01/22/2023 09:45:51 01/22/2023 13:52:52 Dry eyes 574879141 H04.129 pt ed. recommend systane Ultra qid OU. lid scrub qd, hot compress qd. Ophthalmic examination and evaluation 77576375 Z01.01 Presbyopia 88829003 H52. 4 [id number] Vani Ashraf MD , [facility], OFF[address] [place] [address] 03/26/2024 14:07:55 03/26/2024 14:33:53 Adult health examination 804947288 Z00.00 pap 5 years 10/24mammo 05/25labs todaytd UTDnever smokercolo n 10 years 03/27 dr vasquez advised i dont know what we would do with an abnormal progestero ne level, but if she wants it i will order Depression screening 171 985913 Z13.31 depression screening tool administer ed, 0 Screening for alcohol abuse 838097333 Z13.39 Alcohol use screening tool administer ed, 3 Active or passive immunization 313978533 Z23 Screening mammography 24 096932 Z12.31 Recurrent major depression 87281243 F33.9 fair control on med per ptdoesnt want to increase or changeoffe red psych consult for medspt will think about it Rheumatoid arthritis 698 42307 M05.9 stable, sees rheum Memory impairment 705304 006 R41.3 offered MOCA testing, pt declines Health Concerns Section Related Observation LastModified by Organization Detai ls LastModified Time None Recorded Concern Status LastModified by Organization Details LastModified Time None Recorded Advance Directives Directive None Recorded Payers Encounter Date Sequence Insurance Name Policy Number Policy Newby Covered Member ID Newby Member ID Guarantor Name 12/22/2020 1 [employer] (PP[place]) [id number] 1 Addis A Kapoor [id number] Alexa Hilariolard 11/01/2022 1 [employer] ([place]) [id number] 1 Addis A Kapoor [id number] Alexa Kapoor 01/20/2023 1 [employer] ([place]) [id number] 1 Addis A Kapoor [id number] Alexa Kapoor 01/22/2023 1 [facility] [id number] 1 Addis Whipple Kapoor [id number] Alexa Kapoor 03/26/2024 1 [facility] [id number] 1 Addis Whipple Kapoor [id number] Alexa Kapoor Notes Date Note Type Note Provider Name and Address Organization Details Recorded Time 1 text/html Comprehensive Eye ExamReported bypatient.Quality:1 year exam; does not wear glasses or contacts;blurred vision near without glasses Location:bilateral Associated Symptoms:no redness; no itching; no floaters;dryness Debra Villafuerte, OD [address] [place], [address], [facility] 12/22/2020 13:06:57 3 text/html Patient presents to the office today for an annual wellness visit. 47 yo F for [place], [employer] exam. Has RA, community service worker left. Was on MTX but stopped due to elevated liver BW. Sx mild , does not wish to pursue further treatment at this timeMenses regularDepression well controlled on med Vani Ashraf MD [address] [place] [address], [address], [facility] 11/01/2022 11:38:51 3 text/html Patient presents to the office today for shoulder pain, Pain in R. shoulder area, hurts to take a deep breath, sharp pain when rolling over in bed and getting out of the carstarted yesterdayneck pain for the past week standard neck pain cannot associate with any event in particular RA has been well controlled Laura Correa DO [address] [place], [address], [facility] 01/22/2023 11:09:02 3 text/html Comprehensive Eye ExamReported bypatient.Quality:2 year exam; no blurred vision Context:currently wears glasses Modifying factors:wears glasses for readers only Associated Symptoms:no redness; no itching; no floaters;dryness Did not bring OTC readers today.C/O feeling like she might be straining to see distances now.systane gtt a few times per week Debra Villafuerte OD [address] [place], [address], [facility] 01/22/2023 13:00:21 5 text/html 48 yo F for [place]. Taking meds as listed. Depression not well controlled but doesnt want to increase med.Hearing loss worse, but has hearing aid and doesnt wear it.notes some memory loss, Cant remember students names from last semester.SIster recommends progesterone level. Menses fairly regular Vani Ashraf MD [address] [place], [address], [facility] 03/26/2024 14:42:00 OBGyn Episode No OBEpisode recorded.
--- OUTSIDE RECORDS SUMMARY | 2024-04-24 13:05 | XMS_ITS | Continuity of Care Document ---
Author Organization [facility], , [facility], OFFICE Address [address] [place] [address] Care Team Providers Care Scientific Specialist Name Role Phone VANI ASHRAF Primary Care Provider Assessment No assessment recorded. Plan of Treatment Reminders Order Date Submit Date Provider Last Modified By Organization Details Last Modified Time Details Appointments Compreh ensive Eye Exam, 20 Min 2024 02:10P M Debra Villafuerte, OD Not available Not available Not available Lab lipid panel, serum [address] [facility], [address] [place] [address], [address], 03/27/2024 12:25:56 TSH, serum or plasma [address] [facility], [address] [place] [address], [address], 03/27/2024 11:31:42 glucose , QN [mass/v olume], serum or plasma [address] [facility], [address] [place] [address], [address], 03/27/2024 12:25:57 progest erone, serum [address] [facility], [address] [place] [address], [address], 03/31/2024 19:17:30 Referral None recorde d. Procedures None recorde d. Surgeries None recorde d. Imaging MAMMO, screeni ng, tomosyn thesis, bilater al - 2nd Look Consult /Diag Mammo/U S Breast/ Guided Asp/Radha ast Bx/Clip Placeme nt, as clinica lly indicat ed. [address] [facility] (Imaging), [address], [place], [place], [address], 04/15/2024 14:03:55 Medication Orders None recorde d. Patient TargetsNo targets recorded. Patient InstructionsNo instructions recorded. Reason for Referral None Reported. Results Created Date Observation Date Name Description Value Unit Range Abnormal Flag Note LastModifiedBy Organization Detail LastModifiedTime 04/15/1904/15/2024 MAMMO , scree brunilda, tomos ynthe sis, bilat eral MAMMO, SCREEN , LAKIA, BILAT: 025. BI-RAD S: 1 CLINIC AL: 48-yea r old Female for Bilate ral Screen ing Mammog goran. Stefan Mir lifeti me risk of 12.7%. No person al or first- degree family histor y of breast cancer . Walker castorena report ed family histor y of breast cancer : matern al aunt. PRIOR EXAMS: Review ed previo us images from 2023. MAMMOG MITZY TECHNI QUE: 3D mammog mitzy (tomos ynthes is) and 2D mammog mitzy (C-vie w) images are genera raeann. Images review ed with a CAD system . DENSIT Y B. There are scatte red areas of fibrog landul ar densit y. MAMMOG MITZY FINDIN GS Bilate ral: No suspic ious mass, asymme try, microc alcifi cation , or other abnorm ality seen. CONCLU SIONNo eviden ce of malign dominique. RECOMM ENDATI ONS Bilate ralAnn ual screen ing mammog mitzy. ADMINI STRATI VE: A lay summar y was mailed to your patien kell amber alejandra the result s and recomm endati ons for follow -up. OVERAL L ASSESS MENT CATEGO RY BI-RAD S-1: Negati ve. The [employer] recomm ends annual screen ing mammog mitzy beginn ing at age 40 for women with averag e risk of breast cancer . ELECTR ONICAL LY SIGNED : Akshat Krishnan M.D. on 2024 at 02:03: 10 PM Josefina tyn: Akshat Krishnan [id number] [facility] (Imaging) [address] [place] [address] [place], [address], 04/15/2024 16:50:53 Result Notes None recorded. Problems Name Problem SNOMED Code Status Onset Date Resolution Date Notes Provider Name and Address Organization Details Recorded Time Recurrent major depressive disorder with onset 05643089 Active Aubrie Toribio NP [address] [place] [address], [phone] , [facility] 6 07:38:02 Allergic conjunctiviti s 448119985 Active ALDO Shirley [address] [place] [address], , [facility] 5 09:40:55 Recurrent major depression 74570920 Active 2017 Vani Ashraf MD [address] [place] [address], [address] , [facility] 3 11:21:43 Rheumatoid arthritis 41257693 Active 2019 Vani Ashraf MD [address] [place] [address], [address] , [facility] 11:21:48 Problem Notes None recorded. Procedures Surgical History Date Name Laterality Status Provider Name and Address Organization Details Recorded Time 01/23/20 23 Refraction completed Debra Villafuerte, OD [address] [place] [address], [phone], [facility] 01/22/2023 10:31:38 01/21/20 23 OMT completed Laura Correa DO [address] [place] [address], [phone], [facility] 01/22/2023 11:04:58 12/23/19 21 Refraction completed Debra Villafuerte, OD [address] [place] [address], [address], [facility] 12/22/2020 09:17:21 05/19/19 prevention-card iovascular risk reduction counseling completed Kristin Cordero MA [facility] 05/12/2020 11:04:30 05/19/19 21 prevention-gerard lino alcohol misuse screening completed Kristin Cordero MA [facility] 05/12/2020 11:04:30 12/23/19 14 Cerumen Removal completed Aubrie Toribio NP [address] [place] [address], [address], [facility] 12/23/2013 06:07:04 09/22/19 13 Cerumen Removal completed Dangelo Raygoza MD [address] [place] [address], [address], [facility] 09/21/2012 11:15:57 endometrial ablation completed Vani Ashraf MD [address] [place] [address], [address], [facility] 11/01/2022 11:27:16 section completed Vani Ashraf MD [address] [place] [address], [address], [facility] 11/01/2022 11:27:26 Shoulder joint surgery completed Vani Ashraf MD [address] [place] [address], [address], [facility] 11/01/2022 11:27:34 Imaging Results None recorded. Procedure Notes None recorded. Medical Equipment None [...] Address Organization Details Last Updated DateTime 5 69525.7 8 g 29.3 kg/m2 157.48 cm 81 /min 130 mm[Hg] 80 mm[Hg] Aditi Mac [facility] 5 14:14:36 Social History Question Answer Notes LastModified by Organizat ion Details LastModified Time Tobacco Smoking Status Never Smoker Jj brown [facility] 09/21/2012 10:51:20 What Is Your Level Of Alcohol Consumption? Occasional Rarely - 1 3x Week [email or web address] Information not available 11/01/2022 Do You Wear A Helmet When Biking? Yes Information not available 01/31/2018 What Is Your Level Of Caffeine Consumption? Moderate 2 Cups Daily Information not available 02/06/2019 How Much Tobacco Do You Chew? None Information not available 09/21/2012 Are You Currently Employed? Yes Information not available 11/01/2022 What Type Of [...] Or The Highest Degree You Have Received? 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 No [email or web address] Information not available 11/01/2022 How Many Days In The Past Year Have You Had A Heavy Drinking Consumption (4+ Female, 5+ Male)? 0 [email or web address] Information not available 01/01/2013 Are There Any Guns Present In Your Home? Yes Information not available 09/21/2012 Do You Use Insect Repellent Routinely? Yes [email or web address] Information not available 11/01/2022 Live Alone Or With Others? With Others Information not available 02/06/2019 Patient Has Health Care Proxy Signed And In Chart No Addis Kapoor, Will Mail Us A Copy. 01/31/18 Information not available 01/31/2018 Marital Status Veronika [email or web address] Informati on not available 01/01/2013 Mosquito Repellent Used Routinely Yes Information not available 09/21/2012 What Was The Date Of Your Most Recent Tobacco Screening? 03/26/2024 [email or web address] Information not available 03/26/2024 How Many Children Do You Have? 2 Robby And Zac [email or web address] Information not available 01/01/2013 What Is Your Relationship Status? [email or web address] Information not available 11/01/2022 Seat Belts Used Routinely Yes Information not available 09/21/2012 Are You Sexually Active? Yes [email or web address] Information not available 11/01/2022 Smoke Alarm In Home Yes [email or web address] Information not available 09/21/2012 Do You Have Smoke And Carbon Monoxide Detectors In Your Home? Yes [email or web address] Information not available 11/01/2022 Are You Passively Exposed To Smoke? No [email or web address] Information not available 11/01/2022 Do You Or Have You Ever Used Smokeless Tobacco? Never Used Smokeless Tobacco Information not available 02/27/2019 How Much Tobacco Do You Smoke? No Information not available 02/27/2019 What Types Of Sporting Activities Do You Participate In? Softball Information not available 01/18/2016 General Stress Level High [email or web address] Information not available 05/18/2020 Do You Use Any Illicit Or Recreational Drugs? No [email or web address] Information not available 03/26/2024 Do You Use Sunscreen Routinely? Yes Information not available 09/21/2012 Do You Or Have You Ever Used Any Other Forms Of Tobacco Or Nicotine? No [email or web address] Information not available 11/01/2022 How Many Days In The Past Year Have You Consumed 4 Or More Drinks? -1 [email or web address] Information not available 03/26/2024 Sex: Female Functional Status Question Answer Note LastModified by Organizat ion Details LastModified Time What is your exercise level? Occasional [email or web address] Information not available 11/01/2022 Mental Status None recorded. Family History Relationship Description Onset Age of this Age Resolved Age Notes LastModified by Organization Details LastModified Time Mother Chronic back pain disabl ed 20yr Not available 01/01/2013 08:41:00 Mother Diabetes mellitus [email or web address] Not available 2018 09:25:42 Paternal Aunt Rheumatoid arthritis of RA [email or web address] Not available 03/23/2019 08:07:20 Unspecified Relation Rheumatoid arthritis cousin [email or web address] Not available 2019 08:07:48 Notes:sister- leaky gut synd valentino mat aunt - premen breast cancer. Medical History No medical history recorded. Gynecological HistoryNo gynecological history recorded. Obstetrics History GPAL:G 0 P 0 0 0 0 Immunizations Vaccine Type Date Status Note Provider Nam e and Address Organization Details Recorded Time Tdap 3 completed Not Available [facility] 03/21/2019 02:16:07 Influenza, split virus, quadrivalent, PF 4 completed Not Available [facility] 03/21/2019 02:18:56 Influenza, split virus, trivalent, PF 4 completed Not Available [facility] 03/21/2019 02:19:21 Influenza, split virus, quadrivalent, PF 5 completed Not Available [facility] 03/21/2019 02:29:20 Influenza, split virus, quadrivalent, PF 6 completed Not Available [facility] 03/21/2019 02:35:34 MMR 5 completed ASHLYN Ness, [facility] 12/31/2013 13:15:14 MMR 9 [facility] 13:15:14 Hep B, unspecified formulation 7 [facility] 13:18:04 Hep B, unspecified formulation 2 [facility] 13:18:04 Hep B, unspecified formulation 7 [facility] 13:18:04 Influenza, split virus, quadrivalent, PF 7 completed Not Available [facility] 03/21/2019 02:32:28 Influenza, split virus, quadrivalent, PF 8 completed Not Available [facility] 03/21/2019 02:34:54 Influenza, split virus, quadrivalent, PF 9 completed Not Available [facility] 03/21/2019 02:34:11 Pneumococcal conjugate PCV 13 0 completed Samantha Fajardo RN null, [facility] 03/27/2019 08:45:29 Influenza, split virus, quadrivalent, PF 0 completed Carli Garcia RN null, [facility] 01/25/2020 14:18:51 Td (adult), 2 Lf tetanus toxoid, preservative free, adsorbed 3 completed Vani Ashraf MD [address] [place] [address], [address], [facility] 11/01/2022 11:38:05 Influenza, split virus, trivalent, PF completed Vani Ashraf MD [address] [place] [address], [place], [address], [facility] 03/26/2024 14:41:27 Past Encounters Encounter ID Performer Location Encounter Start Date Encounter Closed Date Diagnosis/Indication Diagnosis SNOMED-CT Code Diagnosis ICD10 Code Diagnosis Note [id number] Vani Ashraf MD , [facility], OFFICE [address] [place] [address] 03/26/2024 14:07:55 03/26/2024 14:33:53 Adult health examination 131711161 Z00.00 pap 5 years 10/24mammo 05/25labs todaytd UTDnever smokercolo n 10 years 03/27 dr vasquez advised i dont know what we would do with an abnormal progestero ne level, but if she wants it i will order Depression screening 171 871078 Z13.31 depression screening tool administer ed, 0 Screening for alcohol abuse 196775105 Z13.39 Alcohol use screening tool administer ed, 3 Active or passive immunization 206578241 Z23 Screening mammography 24 768507 Z12.31 Recurrent major depression 40340808 F33.9 fair control on med per ptdoesnt want to increase or changeoffe red psych consult for medspt will think about it Rheumatoid arthritis 698 00975 M05.9 stable, sees rheum Memory impairment 910395 006 R41.3 offered MOCA testing, pt declines Health Concerns Section Related Observation LastModified by Organization Detai ls LastModified Time None Recorded Concern Status LastModified by Organization Details LastModified Time None Recorded Payers Encounter Date Sequence Insurance Name Policy Number Policy Newby Covered Member ID Newby Member ID Guarantor Name 03/26/2024 1 [facility] ([facility] [id number] 1 Addis Kapoor [id number] Alexa Kapoor Notes Date Note Type Note Provider Name and Address Organization Details Recorded Time 03/26/2024 text/html 48 yo F for [place]. Taking meds as listed. Depression not well controlled but doesnt want to increase med.Hearing loss worse, but has hearing aid and doesnt wear it.notes some memory loss, Cant remember students names from last semester.SIster recommends progesterone level. Menses fairly regular Vani Ashraf MD [address] [place] [address], [place], [address], [facility] 03/26/2024 14:42:00 OBGyn Episode No OBEpisode recorded.
[2024-04-24 13:22] LABS: MANUAL DIFF FLAG NO
[2024-04-24 13:26] LABS: Basophils Percent Auto 0.7 % (0-2); Eosinophils Absolute Auto 0.1 X10*3/uL (0.0-0.4); Hematocrit 43.9 % (37.0-47.0); Hemoglobin 14.9 g/dl (12.0-16.0); Imm Gran Abs Auto 0.01 X10*3/uL (0.00-0.03); Imm Gran Pct Auto 0.2 % (0.0-0.4); Lymphocytes Absolute Auto 1.8 X10*3/uL (1.2-4.9); Lymphocytes Percent Auto 29.2 % (20-40); Mean Corpuscular HGB Conc 33.9 g/dl (31.0-35.0); Mean Corpuscular Hemoglobin 31.8 pg (27.0-33.0); Mean Corpuscular Volume 93.8 fL (80.0-98.0); Mean Platelet Volume 10.2 fL (9.4-12.3); Monocytes Absolute Auto 0.6 X10*3/uL (0.1-1.2); Monocytes Percent Auto 9.7 % (2-11); Neutrophils Absolute Auto 3.6 x10*3/uL (2.0-8.3); Neutrophils Percent Auto 59.2 % (45-73); Platelet Count 204 X10*3/uL (160-400); Red Blood Count 4.68 X10*6/uL (4.20-5.50); Red Cell Distribution Width 12.3 % (11.0-16.0)
[2024-04-24 13:45] LABS: Alanine Aminotransferase 31 U/L (0-31); Albumin Level 4.2 g/dL (3.5-5.0); Alkaline Phosphatase 51 U/L (39-117); Anion Gap 10 (12-20); Aspartate Amino Transferase 28 U/L (5-31); Bilirubin Total 0.4 mg/dL (0.0-1.0); Blood Urea Nitrogen 10 mg/dL (9-16); C Reactive Protein 0.14 mg/dL (< or = 0.50); Calcium 9.3 mg/dL (8.4-10.2); Carbon Dioxide 29 mmol/L (22-29); Chloride 105 mmol/L (96-108); Estimated Glomerular Filt Rate > 60; Glucose Random 73 mg/dL (60-115); Sodium 140 mmol/L (135-145); Total Protein 7.3 g/dL (6.5-8.0)
[2024-04-24 14:16] LABS: Erythrocyte Sedimentation Rate 2 MM/HR (0-20)
== END 2024-04-24 12:26 | disposition home or self-care (01) ==
LOC: HO.10HDL 12:25
PROVIDERS: Visit Provider Student in an Organized Health Care Education/Training Program
DX: M06.9 Rheumatoid arthritis, unspecified (principal)
CPT/HCPCS: 36415; 80053; 85025; 85652; 86140

== ENCOUNTER 2024-04-29 11:23 | Outpatient (AMB) | payer OTHER, SELFPAY ==
--- NOTE | 2024-04-29 11:26 | A.OFFVIS_ITS ---
Vital Signs 04/29/24 11:29 Height 5 ft 2 in Weight 165 lb 2.02 oz BMI 30.2 BP 120/68 Blood Pressure Location Lt brachial Position Sitting Pulse 85 Pulse Source Pulse Oximeter Pulse Oximetry (%) 98 Oxygen Delivery Method Room Air Intake Visit Reasons: RA Intake Note: Patient presents for RA. Allergies No Known Allergies Allergy (Verified 04/29/24 11:29) Medication List - Last Reconciled 04/29/24 by Eliz Dalal MD bupropion HCl XL 300 mg PO QAM hydroxychloroquine 400 mg (2 x 200 mg) PO DAILY 90 days ibuprofen 400 mg PO Q8H PRN HPI Comments Details: Patient is a 48-year-old female with seropositive rheumatoid arthritis here today for follow up Interval History: Patient last seen 10/30/[address] Aranda. At that time she was taking hydroxychloroquine regularly 3 months prior to the visit with minimal GI upset and reported that her overall stiffness improved. Exam was more consistent with bilateral hand osteoarthritis as there was no active synovitis. Today, Doing the same Has good days and bad days but is overall well Rheumatologic History: Seropositive RA April 2019 -Diagnosed, methotrexate 8 tabs weekly August 2020- 8 tabs methotrexate, failed sulfasalazine, Humira added December 2020- elevated LFTs, methotrexate decreased to 5 tabs weekly, Humira March 2021- 5 tabs methotrexate , Humira discontinue, Enbrel started-continued pain June 2021- 5 tab methotrexate , Enbrel discontinued-no difference November 2021- patient would like to trial off methotrexate. HCQ 07/2023 effective Current Rheumatology Medication(s): Hydroxychloroquine 200mg bid PFSH Medical History Rheumatoid arthritis Surgical History H/O shoulder surgery Hx of section Family History Mother No problems noted. Father No problems noted. Social History Alcohol intake: current Alcohol intake frequency: a few times a week Alcohol type: beer Patient Tobacco Use Status: Never used Tobacco e-Cigarette/Vaping Use: Never Used Review of Systems Const Details: Review of Systems Constitutional: Denies fever, chills, weight loss ENT: Denies vision changes, eye pain or eye redness, dental caries, dry mouth GI: Denies nausea, vomiting, diarrhea, abdominal pain, change in BM Pulm: Denies SOB, ONEIL, hemoptysis, wheezing Cards: Denies chest pain, palpitations Skin: Denies Raynaud's, rash, nail changes, photosensitivity, [employer]: Denies headaches, weakness, paresthesias, recurrent falls MSK: as per HPI All other systems reviewed and are unremarkable except noted above Physical Exam Vital Signs: Last Vital Signs Pulse 85 04/29/24 11:29 BP 120/68 04/29/24 11:29 Pulse Ox 98 04/29/24 11:29 Oxygen Delivery Method Room Air 04/29/24 11:29 BMI result Body Mass Index 30.2 Vital signs reviewed Physical Examination CONSTITUITIONAL Patient alert and cooperative. Well appearing and in no apparent painful distress HEENT Conjunctiva and sclera clear. Pupils equal round and reactive to light. No lymphadenopathy. CHEST/RESPIRATORY SYSTEM Normal respiratory effort and able to speak in complete sentences. Clear to auscultation bilaterally. No crackles, rales, rhonchi, wheezes heard. CARDIAC SYSTEM Regular rate and rhythm. S1 and S2 heard no murmurs. 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 No deformities noted. No synovitis noted to the MCPs, PIPs or DIPs. No tenderness to palpation of these joints. Wrists: Full range of motion at the wrists without pain. No tenderness to palpation or synovitis noted to the wrists. Elbows: Full range of motion without pain. No tenderness, weakness, swelling, increased warmth or erythema. Shoulders: Full range of motion without pain. No tenderness, weakness, swelling, increased warmth or erythema. Hips: Full range of motion without pain. Hip bursa: No tenderness to palpation Knees: Full range of motion. No tenderness, swelling, increased warmth or erythema.?No effusion or crepitations Ankles: Full range of motion. No tenderness, swelling, increased warmth or erythema.? Feet: Negative squeeze test. No tenderness to palpation or swelling of the MTPs. Tender points:?No tenderness to palpation of the bilateral trapezius, supraspinatus, greater trochanters, anterior costochondral junctions, bilateral gluteal areas, bilateral suboccipital muscle insertions SKIN Skin intact without rashes. Results Reviewed Results Reviewed: Laboratory Tests 06/08/22 04/24/24 08:11 12:27 WBC 6.0 RBC 4.68 Hgb 14.9 Hct 43.9 Plt Count 204 ESR 2 Sodium 140 Potassium 4.0 D Chloride 105 Carbon Dioxide 29 BUN 10 Creatinine 0.79 Total Bilirubin 0.4 AST 28 ALT 31 Alkaline Phosphatase 51 C-Reactive Protein 0.14 Hepatitis A IgM Ab Nonreactive Hep Bs Antigen Negative Hep Bs Antibody REACTIVE Hep B Core Total Ab Nonreactive Hepatitis C Ab (EIA) Nonreactive TB Test (T-Spot) Com Negative XR Bilateral Hands 11/2021 FINDINGS: Right Hand: No fracture or dislocation. Normal carpal alignment. No significant joint space narrowing or marginal osteophytes. No osseous erosion. No periarticular osteopenia. No abnormal soft tissue calcification. Left Hand: No fracture or dislocation. Normal carpal alignment. No significant joint space narrowing or marginal osteophytes. No osseous erosion. No periarticular osteopenia. No abnormal soft tissue calcification. Assessment & Plan Assessment & Plan (1) Rheumatoid arthritis: Comment: April 2019 -Diagnosed, methotrexate 8 tabs weekly August 2020- 8 tabs methotrexate, failed sulfasalazine, Humira added December 2020- elevated LFTs, methotrexate decreased to 5 tabs weekly, Humira March 2021- 5 tabs methotrexate , Humira discontinue, Enbrel started-continued pain June 2021- 5 tab methotrexate , Enbrel discontinued-no difference November 2021- patient would like to trial off methotrexate. HCQ 07/2023 effective Code(s): M06.9 - Rheumatoid arthritis, unspecified Category: Medical Qualifiers: Rheumatoid arthritis location: multiple sites Rheumatoid factor presence: with rheumatoid factor Qualified Code(s): M05.79 - Rheumatoid a rthritis with rheumatoid factor of multiple sites without organ or systems involvement Plan: #Seropositive RA Patient is a 48-year-old female with seropositive rheumatoid arthritis currently on hydroxychloroquine which has been effective for her. Currently in remission. Has a ophthalmology appointment 06/2024. Plan - Plaquenil 400 mg daily M-F, 200 mg daily Sat- Sun - RTC 6 months - Labs before visit: CBC, CMP, ESR, CRP, hepatitis panel, T spot (2) Long-term use of hydroxychloroquine: Code(s): Z79.899 - Other long term acute care registered nurse (current) drug therapy Category: Medical Plan: #Long-term Use of Hydroxychloroquine Discussed with patient the risks and benefits of hydroxychloroquine in managing the rheumatic condition Benefits include: - Reduced pain, reduce mortality, maintenance of remission and reduction of flares Risks include: - GI upset, skin hyperpigmentation, retinal toxicity (especially after more than 5 years of use), myopathy Advised yearly ophthalmology visits Plan I spent 20 minutes reviewing the record and labs, taking a history, examining the patient, discussing the treatment plan and documenting in the medical record Medications: Changed From hydroxychloroquine Take 2 tabs daily x5 days a week and 1 tab daily x2 days a week 144 tabs 0RF M05.79 - Rheumatoid arthritis with rheumatoid factor of multiple sites without organ or systems involvement To hydroxychloroquine take 2 tablets daily for 5 days of the week and then 1 tablet daily for the remaining 2 days of the week 400 mg (2 x 200 mg) PO DAILY 90 days 180 tabs 1RF M05.79 - Rheumatoid arthritis with rheumatoid factor of multiple sites without organ or systems involvement Coding Level of Care Code Est Pt Level 3 (79418) Complex EM visit Add On G2211 Diagnoses Rheumatoid arthritis involving multiple sites with positive rheumatoid factor M05.79 Rheumatoid arthritis location: multiple sites Rheumatoid factor presence: with rheumatoid factor Long-term use of hydroxychloroquine Z79.899
[2024-04-29 11:29] VITALS: BP 120/68; PULSE 85; O2SAT 98; BMI 30.2
--- OUTSIDE RECORDS SUMMARY | 2024-04-29 14:19 | XMS_ITS | Data Portability ---
Author Organization [facility], , [facility] Address [address] [place] [address] Care Team Providers Care Gear Keeper Name Role Phone VANI ASHRAF Primary Care Provider [phone] Assessment No assessment recorded. Plan of Treatment Reminders Order Date Submit Date Provider Last Modified By Organization Details Last Modified Time Details Appointments Compreh ensive Eye Exam, 20 Min 2024 02:10P M Debra Villafuerte, HERRERA Not available Not available Not available Lab lipid panel, serum 2024 025 [facility], [address] [place] [address], [address], 03/27/2024 12:25:56 TSH, serum or plasma 2024 025 [facility], [address] [place] [address], [address], 03/27/2024 11:31:42 glucose , QN [mass/v olume], serum or plasma 2024 025 [facility], [address] [place] [address], [address], 03/27/2024 12:25:57 progest erone, serum 2024 025 [facility], [address] [place] [address], [address], 03/31/2024 19:17:30 lipid panel, serum 2022 023 [facility], [address] [place] [address], [address], 11/02/2022 10:16:32 TSH, serum or plasma 2022 023 [facility], [address] [place] [address], [address], 11/02/2022 10:48:34 glucose , QN [mass/v olume], serum or plasma 2022 023 [facility], [address] [place] [address], [address], 11/02/2022 10:16:33 pap, LB + HPV - Pap smear with HPVIs this patient taking hormone s (y/n)? IF yes, what type? 2022 023 [facility] (Pathology), [address] [place] [address], [address], 11/07/2022 12:48:53 AST/SGO T (aspart ate aminotr ansfera se), serum or plasma 2022 023 [facility], [address] [place] [address], [address], 11/02/2022 10:16:34 ALT (alanin e aminotr ansfera se), serum or plasma 2022 023 [facility], [address] [place] [address], [address], 11/02/2022 10:16:35 Referral None recorde d. Procedures colonos copy procedu re (PROC) [email or web address] [facility], [address] [place], [address], 11/02/2022 09:52:46 Surgeries None recorde d. Imaging MAMMO, screeni ng, tomosyn thesis, bilater al - 2nd Look Consult /Diag Mammo/U S Breast/ Guided Asp/Radha ast Bx/Clip Placeme nt, as clinica lly indicat ed. 2024 025 [facility] (Imaging), [address], [place], [address], 04/15/2024 14:03:55 MAMMO, rosai syed, tomosyn thesis, batsheva lino 2022 023 [facility] (Imaging), [address] [place], [address], 04/10/2023 13:59:57 Medication Orders cyclobe nzaprin e 5 mg tablet 2022 023 [address] [id number], [address], [place], [id number], 03/26/2024 14:20:38 Patient TargetsNo targets recorded. Patient Instructions Encounter Date Encounter Id Patient Instructions Last Modified By Organization Details Last Modified Time 11/01/2022 [id number] Well Visit, Ages 18 to 65: Care Instructions [id number] Not available 11/01/2022 11:21:10 Reason for Referral None Reported. Results Created Date Observation Date Name Description Value Unit Range Abnormal Flag Note LastModifiedBy Organization Detail LastModifiedTime 11/02/1911/02/2022 LIPID PANEL cholesterol 192 mg/dL <200 mg/dl Zenon able 200-2 39 mg/dl Borde rline High >240 mg/dl High Not Available [address], [address], 11/02/2022 10:16:32 11/02/1911/02/2022 LIPID PANEL triglyceride s 85 mg/dL <150 mg/dL Nara l 150-1 99 mg/dL Borde rline High 200-4 99 mg/dL High >500 mg/dL Very High Not Available [address], [address], 11/02/2022 10:16:32 11/02/1911/02/2022 LIPID PANEL direct HDL 61 mg/dL <40 mg/dl - Major Risk for CHD >60 mg/dl - Negat jack Risk for CHD Not Available [address], [address], 11/02/2022 10:16:32 11/02/19 23 11/02/2022 GLUCO SE glucose 82 mg/dL 70-100 Not Available [address], [address], 11/02/2022 10:16:33 11/02/19 23 11/02/2022 AST AST 25 U/L 0-37 Not Available [address], [address], 11/02/2022 10:16:34 11/02/19 23 11/02/2022 ALT ALT 26 U/L 6-63 Not Available [address], [address], 11/02/2022 10:16:35 11/02/19 23 11/02/2022 DIREC T [...] r is not allen sandhu. Not Available [address], [address], 11/02/2022 10:16:36 11/02/19 23 11/02/2022 TSH TSH 3.37 uIU/m L 0.50-6 .00 The Ameri can Colle ge of Endoc rinol ogy and Ameri can Thyro id Assoc iatio n recom mend goal TSH value s betwe en 0.4-4 .0 mIU/m L. Not Available [facility] [address] [facility], [place], [address], 11/02/2022 10:48:33 11/02/19 23 11/07/2022 PAP TEST path report [facility] [address] [facility] [place] [address] Lab Direc tor: Loree marquez MD HEALTH SPECIALIST Cytol ogy Repor t Acces carmella #: [...] This HPV test was perfo rmed at [facility], [address] [facility]. This test has been FDA appro cb for SureP ath cervi brissa cytol ogy speci mens. The accur acy and preci carmella of this test for all other speci men sourc es has been verif ied in the Cytop athol ogy Labor atory of the [facility] and has not been clear ed or [...] ts to: Leonor jc MD Not Available [facility] (Outpatient) [address] [facility], [place], [address], 11/07/2022 12:48:52 03/26/19 25 03/27/2024 TSH TSH 2.28 uIU/m L 0.50-6 .00 The Ameri can Colle ge of Endoc rinol ogy and Ameri can Thyro id Assoc iatio n recom mend goal TSH value s betwe en 0.4-4 .0 mIU/m L. Not Available [address], [address], 03/27/2024 11:31:41 03/26/1903/27/2024 LIPID PANEL cholesterol 183 mg/dL <200 mg/dl Zenon able 200-2 39 mg/dl Borde rline High >240 mg/dl High Not Available [address], [address], 03/27/2024 12:25:56 03/26/19 25 03/27/2024 LIPID PANEL triglyceride s 74 mg/dL <150 mg/dL Nara l 150-1 99 mg/dL Borde rline High 200-4 99 mg/dL High >500 mg/dL Very High Not Available [address], [address], 03/27/2024 12:25:56 03/26/1903/27/2024 LIPID PANEL direct HDL 72 mg/dL <40 mg/dl - Major Risk for CHD >60 mg/dl - Negat jack Risk for CHD Not Available [address], [address], 03/27/2024 12:25:56 03/26/1903/27/2024 GLUCO SE glucose 96 mg/dL 70-100 Not Available [address], [address], 03/27/2024 12:25:57 03/26/1903/27/2024 DIREC T LDL direct [...] r is not neckatty phoebe. Not Available [facility] [address] [facility], [place], [address], 03/27/2024 12:25:58 03/26/19 25 03/31/2024 PROGE STERO [...] cteri stics have been deter mined by [facility]. It has not been clear ed or appro cb by FDA. This assay has been valid ated pursu ant to the CLIA regul ation s and is used for clini brissa purpo ses. Not Available [facility] [address], [place], [address], 03/31/2024 19:17:30 04/07/19 22 04/07/2021 US, ramakrishna t CLINIC AL HISTOR Y: Right breast [...] Readin g Physic ajit: Brandee Carlson ms [address] (Imaging) [address] , [place], [address], 04/07/2021 13:42:58 04/07/19 22 04/07/2021 MAMMO , [...] added. Images are review ed with the [employer] CAD system . COMPAR JEANA: 08/04/19 21, [...] Readin g Physic ajit: Brandee Carlson ms [email or web address] (Imaging) [address], [place], [address], 04/07/2021 13:42:58 04/26/19 23 04/26/2022 audio logic asses sment (PROC ) No observ ation record ed. [email or web address] [facility] [address], [place], [address], 05/24/2022 13:35:18 04/10/19 24 04/10/2023 MAMMO , [...] Readmarce collier Physic ajit: Brandee Carlson ms [email or web address] [facility] (Imaging) [address], [place], [address], 04/10/2023 17:59:10 05/10/19 24 05/10/2023 MAMMO , [...] AM Josefina Brown ajit: Rockjoao Carlson ms [email or web address] [facility] (Imaging) [address] , [place], [address], 05/10/2023 14:11:45 05/10/19 24 05/10/2023 US, breas [...] Josefina collier Physic ajit: Brandee Carlson ms [email or web address] [facility] (Imaging) [address], [place], [address], 05/10/2023 14:11:45 04/15/19 25 04/15/2024 MAMMO , scree brunilda, tomos ynthe sis, bilat eral MAMMO, SCREEN , LAK[place], BILAT: 025. BI-RAD S: 1 CLINIC AL: 48-yea r old Female for Bilate ral Screen ing Mammog goran. [facility] 12.7%. No person [...] 10 PM Josefina Brown ajit: Akshat Krishnan [email or web address] [facility] (Imaging) [address], [place], [address], 04/15/2024 16:50:53 Result Notes None recorded. Problems Name Problem SNOMED Code Status Onset Date Resolution Date Notes Provider Name and Address Organization Details Recorded Time Recurrent major depressive disorder with onset 90867243 Active Aubrie Toribio NP [address] [place] [address], [phone] , [facility] 6 07:38:02 Allergic conjunctiviti s 460564577 Active ALDO Shirley [address] [place] [address], [phone] , [facility] 5 09:40:55 Recurrent major depression 58521321 Active 2017 Vani Ashraf MD [address] [place] [address], [phone] , [facility] 3 11:21:43 Rheumatoid arthritis 84909861 Active 2019 Vani Ashraf MD [address] [place] [address], [phone] , [facility] 3 11:21:48 Problem Notes None recorded. Procedures Surgical History Date Name Laterality Status Provider Name and Address Organization Details Recorded Time 01/23/20 23 Refraction completed Debra Villafuerte, OD [address] [place], [place], , [facility] 01/22/2023 10:31:38 01/21/20 23 OMT completed Laura Correa, DO [address] [place] [address], , [facility] 01/22/2023 11:04:58 12/23/19 21 Refraction completed Debra Villafuerte, OD [address] [place], [place], , [facility] 12/22/2020 09:17:21 05/19/19 21 prevention-card iovascular risk reduction counseling completed Kristin Cordero [facility] 05/12/2020 11:04:30 05/19/19 21 prevention-gerard al alcohol misuse screening completed Kristin Cordero [facility] 05/12/2020 11:04:30 12/23/19 14 Cerumen Removal completed Aubrie Toribio NP [address] [place] [address], , [facility] 12/23/2013 06:07:04 09/22/19 13 Cerumen Removal completed Dangelo Raygoza MD [address] [place] [address], , [facility] 09/21/2012 11:15:57 endometrial ablation completed Vani Ashraf MD [address] [place] [address], , [facility] 11/01/2022 11:27:16 section completed Vani Ashraf MD [address] [place] [address], , [facility] 11/01/2022 11:27:26 Shoulder joint surgery completed Vani Ashraf MD [address] [place] [address], , [facility] 11/01/2022 11:27:34 Imaging Results Imaging Date Name Status LastModified by [facility] Details LastModified Time 04/07/2021 US, breast completed [email or web address] [facility] (Imaging) [address] [place], [address], 04/07/2021 13:42:58 04/07/2021 MAMMO, diagnostic, tomosynthesis, unilateral completed [facility] (Imaging) [address] [place], [address], 04/07/2021 13:42:58 04/26/2022 audiologic assessment (PROC) [email or web address] [facility] [address], [place], [address], 05/24/2022 13:35:18 04/10/2023 MAMMO, screening, tomosynthesis, bilateral completed [email or web address] [facility] (Imaging) [address] [place], [address], 04/10/2023 17:59:10 05/10/2023 MAMMO, diagnostic, tomosynthesis, unilateral completed [email or web address] [facility] (Imaging) [address] [place], [address], 05/10/2023 14:11:45 05/10/2023 US, breast completed [email or web address] [facility] (Imaging) [address] [place], [address], 05/10/2023 14:11:45 04/15/2024 MAMMO, screening, tomosynthesis, bilateral completed [email or web address] [place] [address] (Imaging) [address] [place], [address], 04/15/2024 16:50:53 Procedure Notes None recorded. Medical [...] Address Organization Details Last Updated DateTime 3 86612.4 3 g 28.1 kg/m2 157.48 cm 99 % 99 % 75 /min 12 /min 124 mm[Hg] 80 mm[Hg] Jessica Russell , [facility] 3 11:02:17 Date Recorded Body height Body mass index (BMI) Body weight Oxygen saturation Oxygen saturation in Arterial blood by Pulse oximetry Heart rate Respiratory rate Systolic blood pressure Diastolic blood pressure Provider Name and Address Organization Details Last Updated DateTime 3 157.48 cm 28.9 kg/m2 69729.5 9 g 98 % 98 % 91 /min 12 /min 126 mm[Hg] 70 mm[Hg] Jessica Russell [facility] 3 10:19:30 Date Recorded Body weight Body mass index (BMI) Body height Heart rate Systolic blood pressure Diastolic blood pressure Provider Name and Address Organization Details Last Updated DateTime 5 03006.7 8 g 29.3 kg/m2 157.48 cm 81 /min 130 mm[Hg] 80 mm[Hg] Aditi Mac [facility] 5 14:14:36 Social History Question Answer Notes LastModified by Organizat ion Details LastModified Time Tobacco Smoking Status Never Smoker Jj Carroll stephanie [facility] 09/21/2012 10:51:20 What Is Your Level Of Alcohol Consumption? Occasional Rarely - 1 3x Week [email or web address] Information not available 11/01/2022 Do You Wear A Helmet When Biking? Yes Information not available 01/31/2018 What Is Your Level Of Caffeine Consumption? Moderate 2 Cups Daily Information not available 02/06/2019 How Much Tobacco Do You Chew? None Information not available 09/21/2012 Are You Currently Employed? Yes [email or web address] Information not available 11/01/2022 What Type Of [...] Or The Highest Degree You Have Received? 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 No [email or web address] Information not available 11/01/2022 How Many Days In The Past Year Have You Had A Heavy Drinking Consumption (4+ Female, 5+ Male)? 0 Information not available 01/01/2013 Are There Any Guns Present In Your Home? Yes Information not available 09/21/2012 Do You Use Insect Repellent Routinely? Yes [email or web address] Information not available 11/01/2022 Live Alone Or [...] Of Your Most Recent Tobacco Screening? 03/26/2024 [email or web address] Information not available 03/26/2024 How Many Children Do You Have? 2 Robby And Zac Information not available 01/01/2013 What Is Your Relationship Status? [email or web address] Information not available 11/01/2022 Seat Belts Used Routinely Yes Information not available 09/21/2012 Are You Sexually Active? Yes [email or web address] Information not available 11/01/2022 Smoke Alarm In Home Yes Information not available 09/21/2012 Do You Have Smoke And Carbon Monoxide Detectors In Your Home? Yes [email or web address] Information not available 11/01/2022 Are You Passively Exposed To Smoke? No [email or web address] Information not available 11/01/2022 Do You Or Have You Ever Used Smokeless Tobacco? Never Used Smokeless Tobacco Information not available 02/27/2019 How Much Tobacco Do You Smoke? No Information not available 02/27/2019 What Types Of Sporting Activities Do You Participate In? Softball Information not available 01/18/2016 General Stress Level High Information not available 05/18/2020 Do You Use Any Illicit Or Recreational Drugs? No [email or web address] Information not available 03/26/2024 Do You Use Sunscreen Routinely? Yes Information not available 09/21/2012 Do You Or Have You Ever Used Any Other Forms Of Tobacco Or Nicotine? No [email or web address] Information not available 11/01/2022 How Many Days In The Past Year Have You Consumed 4 Or More Drinks? -1 [email or web address] Information not available 03/26/2024 Sex: Female Functional Status Question Answer Note LastModified by Organizat ion Details LastModified Time What is your exercise level? Occasional [email or web address] Information not available 11/01/2022 Mental Status None recorded. Family History Relationship Description Onset Age of this Age Resolved Age Notes LastModified by Organization Details LastModified Time Mother Chronic back pain disabl ed 20yr Not available 01/01/2013 08:41:00 Mother Diabetes mellitus [email or web address] Not available 2018 09:25:42 Paternal Aunt Rheumatoid arthritis of RA [email or web address] Not available 03/23/2019 08:07:20 Unspecified Relation Rheumatoid arthritis cousin [email or web address] Not available 2019 08:07:48 Notes:sister- leaky gut synd valentino mat aunt - premen breast cancer. Medical History No medical history recorded. Gynecological HistoryNo gynecological history recorded. Obstetrics History GPAL:G 0 P 0 0 0 0 Immunizations Vaccine Type Date Status Note Provider Nam e and Address Organization Details Recorded Time Tdap 3 completed Not Available [facility] 03/21/2019 02:16:07 Influenza, split virus, quadrivalent, PF 4 completed Not Available [facility] 03/21/2019 02:18:56 Influenza, split virus, trivalent, PF 4 completed Not Available [facility] 03/21/2019 02:19:21 Influenza, split virus, quadrivalent, PF 5 completed Not Available [facility] 03/21/2019 02:29:20 Influenza, split virus, quadrivalent, PF 6 completed Not Available [facility] 03/21/2019 02:35:34 MMR 5 completed ASHLYN Ness [facility] 12/31/2013 13:15:14 [facility] 13:15:14 Hep B, unspecified formulation 7 completed ASHLYN Ness, [facility] 12/31/2013 13:18:04 Hep B, unspecified formulation 2 completed ASHLYN Ness, [facility] 12/31/2013 13:18:04 Hep B, unspecified formulation 7 completed ASHLYN Ness, [facility] 12/31/2013 13:18:04 Influenza, split virus, quadrivalent, PF 7 completed Not Available [facility] 03/21/2019 02:32:28 Influenza, split virus, quadrivalent, PF 8 completed Not Available [facility] 03/21/2019 02:34:54 Influenza, split virus, quadrivalent, PF 9 completed Not Available [facility] 03/21/2019 02:34:11 Pneumococcal conjugate PCV 13 0 completed Samantha Fajardo RN null, [facility] 03/27/2019 08:45:29 Influenza, split virus, quadrivalent, PF 0 completed Carli Garcia RN [facility], [facility] 01/25/2020 14:18:51 Td (adult), 2 Lf tetanus toxoid, preservative free, adsorbed 3 completed Vani Ashraf MD [address] [place] [address], [phone], [facility] 11/01/2022 11:38:05 Influenza, split virus, trivalent, PF 5 completed Vani Ashraf MD [address] [place] [address], [phone], [facility] 03/26/2024 14:41:27 Past Encounters Encounter ID Performer Location Encounter Start Date Encounter Closed Date Diagnosis/Indication Diagnosis SNOMED-CT Code Diagnosis ICD10 Code Diagnosis Note [id number] [facility], OFFICE [address] [place] [address] 11/13/2010 11:39:10 11/13/2010 15:50:25 [id number] Aubrie Toribio NP [facility], [address]ICE [address] [place] [address] 09/21/2012 10:37:37 09/21/2012 11:24:21 [id number] Aubrie Toribio NP , [facility], [address] [place] [address] 01/01/2013 08:10:13 01/01/2013 09:15:11 Adult health examination 048351534 see Risk Assessment and Lifestyle Change Counseling section above Counseling [id number] Administra tion of diphtheria, pertussis, and tetanus vaccine 010332375 Recurrent major depressive disorder with onset 01125002 [id number] Yoana Dos Santos [place] , [facility], [address] [place] [address] 04/28/2013 07:30:12 04/28/2013 11:55:33 Acute sinusitis 29060572 Pt presents today for evaluation of facial [...] worsen at any time. Influenza vaccine needed [id number] [id number] [facility], OFFICE [address] [place] [address] 09/22/2013 10:14:44 09/22/2013 10:55:53 Recurrent major depressive disorder with onset 93574901 wants to resume bupropion - advised to complete the weaning process first and call for Rx. Enc counseling options, parent groups Fatigue 98000720 will ch leonidas other causes of fatigue and f/u per results [id number] Kym Goss , [facility], [address] [place] [address] 12/22/2013 15:59:26 12/22/2013 16:55:48 Recurrent major depressive disorder with onset 06375875 improved - cont bid dosing of bupropion Influenza vaccine needed 7328145245 106 Impacted cerumen 63593467 Hearing loss 59278295 he aring testing in office shows mild loss [id number] Aubrie Toribio NP , [facility], [address] [place] [address] 02/12/2014 14:23:42 02/12/2014 15:33:35 Adult health examination 335280808 see Risk Assessment and Lifestyle Change Counseling section above Counseling [id number] Recurrent major depressive disorder with onset 80371249 Trial of XL to avoid missed doses. COnsider inc to 400mg daily dose of SR if insurance does not cover Discussed good self care during darker months - [id number] Aubrie Toribio NP , [facility], [address] [place] [address] 09/16/2014 08:20:01 09/16/2014 08:48:25 Recurrent major depressive disorder with onset 29360458 stable off meds names of therapists given consider restarting med in fall if mood drops with darker days Hearing loss 90088166 fo rmal testing showed moderate right hearing loss - plans to trial a hearing device this summer Sciatica 36535277 stretc hes, ergonomics , no lifting consider PT referral [id number] ALDO Shirley, [facility], [address]ICE [address] [place] [address] 11/26/2014 09:14:50 11/26/2014 09:33:46 Allergic conjunctivitis 520508764 advised warm compresses qid x 10 min Optive refresh to alleviate itching. Reassuranc e re contagious ness in light of her 5 yo birthday gathering of family and children. [id number] ASHLYN Candelaria, [facility], [address] [place] [address] 01/20/2015 06:56:12 01/20/2015 09:46:23 Active or passive immunization 553830620 Z23 [id number] MAX Charles, [facility], [address] [place] [address] 07/20/2015 16:00:25 07/20/2015 16:53:56 Recurrent major depressive disorder with onset 35953373 O99.345 per up-to-date - will trial 450mg dose rtc 6wk - call sooner with any side effects or concerns. continue therapy, good self care. Menorrhagia 855664065 N9 2.0 suggest warehouse stocker consult re endometria l ablation would suggest this over resuming OC at this time pt to consider options and she will consult with midwives [id number] Aubrie Toribio NP , [facility], [address] [place] [address] 09/19/2015 15:23:57 09/19/2015 15:58:01 Eruption 828678403 R21 She will try OTC antifungal faithfully bid x 2-3wkrepor t persistent sx Recurrent major depressive disorder with onset 95462880 O99.345 Discussed options: will start fluoxetine low dose -reviewed risks, side effectsrtc 6-8wk - update via portal - call sooner with concerns [id number] Anabell López , [facility], [address] [place] [address] 12/14/2015 11:06:53 12/14/2015 15:23:56 Active or passive immunization 897328553 Z23 [id number] Aubrie Toribio NP , [facility], [address] [place], [place] [address] 01/18/2016 14:25:27 01/18/2016 14:56:27 Adult health examination 702164148 Z00.00 see Risk Assessment and Lifestyle Change Counseling section above Counseling 712843952 Z71 .9 Recurrent major depressive disorder with onset 97964011 O99.345 stable [id number] CHASE Munoz , [facility], [address] [place] [address] 01/25/2016 15:51:03 01/30/2016 11:39:00 Acute upper respiratory infection 15480807 J06.9 Educated patient that URI is a [...] or failure to resolve in 2-4 weeks. [id number] MAX Charles, [facility], [address] [place] [address] 02/15/2016 09:21:09 02/16/2016 14:10:33 Cough 80107304 R05 Rib pain in the setting of prolonged cough -reassured not likely rib fx - prob costochond ral injury.Sug gest heat, stretches, NSAIDs.RTC prn. [id number] MAX Charles, [facility], [address] [place] [address] 10/17/2016 14:21:17 10/17/2016 14:45:09 Recurrent major depression 58745139 F33.9 Tryslower taper off med.report persistent RLs [id number] MAX Charles, [facility], [address] [place] [address] 01/30/2017 09:25:02 01/30/2017 10:19:48 Adult health examination 542814459 Z00.00 see Risk Assessment and Lifestyle Change Counseling section above Counseling 549812004 Z71 .9 Recurrent major depressive disorder with onset 77130250 O99.345 Active or passive immunization 184718243 Z23 Screening for malignant neoplasm of cervix 911917814 Z12.4 [id number] MAX Charles, [facility], [address] [place] [address] 01/31/2018 09:22:04 01/31/2018 10:05:26 Adult health examination 458386824 Z00.00 see Risk Assessment and Lifestyle Change Counseling section above Counseling 860015812 Z71 .9 Depression screening 171 155728 Z13.89 depression screening tool administer ed, entered into emr, scored and discussed, time greater than 7.5 minutes Active or passive immunization 460161787 Z23 Recurrent major depression 10047937 F33.9 stable on meds Screening mammography 24 091059 Z12.31 due to [facility] will obtain baseline mammo [id number] Debra Villafuerte, [facility], [facility] [address] [place] [address] 04/23/2018 09:21:19 04/23/2018 10:34:42 Ophthalmic examination and evaluation 65485340 Z01.00 ocular health wnl to extent seen OU; pt ed, RTC 1-2 yrs CEE or prn [id number] Aubrie Toribio NP FP, [facility], [address] [place] [address] 02/06/2019 09:00:22 02/06/2019 09:32:01 Adult health examination 567530442 Z00.00 see Risk Assessment and Lifestyle Change Counseling section above Counseling 286369417 Z71 .9 Depression screening 171 236979 Z13.89 depression screening tool administer ed, entered into emr, scored and discussed, time greater than 7.5 minutes Recurrent major depression 81876092 F33.9 if labs normal, pt wants to consider different SSRI -would recommend Lexapro and f/u 8wk after starting. Hand joint pain 33971477 8 M25.549 Candidiasis of vagina 72 074782 B37.3 Active or passive immunization 629479424 Z23 [id number] MAX Charles, [facility], [address] [place] [address] 02/27/2019 09:49:00 02/27/2019 10:09:32 Lesion of vulva 052748681 N90.89 appears to be skin tears likely from recent yeast infection. Sx care reviewed. HSV cx pending. Vaginal irritation 64555 6004 N89.8 normal - discussed sx care [id number] Deacon Hernandez MD [facility], [address] [address] 03/23/2019 07:53:23 03/23/2019 17:20:58 Seropositive rheumatoid arthritis 140956151 M05.9 Active or passive immunization 623556163 Z23 [id number] MAX Leach, [facility], [address] [place] [address] 05/01/2019 08:11:44 05/01/2019 08:30:02 Recurrent major depressive disorder with onset 68734309 O99.345 Trial of lexapro, found it to be too sedating. Would like to restart bupropion as she was on in the past. Advised may have interactio ns w/RA meds. at higher doses. Will start at 150 mg and pt to review w/ rheum. at next f/u. Call office for new or worsening sx, f/u w/PCP as planned. Rheumatoid arthritis 698 [address]73 M06.9 F/u with rheumatolo gy - has upcoming appt [id number] Moy Shipley MD Rheumatol [address] [address] 05/11/2019 14:27:43 05/11/2019 15:47:21 Seropositive rheumatoid arthritis 792436004 M05.9 Patient still having symptoms, will increase methotrexa te to 20 mg/week. Check labs for disease activity and medication toxicity. Active or passive immunization 819979832 Z23 [id number] Aubrie Toribio NP , [facility], [address] [place] [address] 07/28/2019 13:45:14 07/31/2019 16:47:07 Vaginitis 54365479 N76.0 Due to persistent sx will treat weekly x4, preventive measures reviewed. RTC prn Angular cheilitis 612236 005 K13.0 discussed home remedies, prevention strategies . Report more frequent oral lesions - could be due to MTX Recurrent major depression 02164310 F33.9 stable on meds. Good supports in place [id number] Carli Garcia RN , [facility], [address] [place] [address] 01/25/2020 07:15:06 01/26/2020 08:48:26 Active or passive immunization 486539224 Z23 [id number] Moy Shipley MD Rheumatol [address] [address] 02/19/2020 07:38:16 02/19/2020 10:09:48 Seropositive rheumatoid arthritis 253970674 M05.9 Patient still having symptoms, especially after [...] verbalized understand ing. Active or passive immunization 998689799 Z23 Patient got the flu shot and PCV-13. Long-term drug therapy 027329006 Z79.899 Monitor CBC and CMP. [id number] Aubrie Toribio NP , [facility], [address] [place] [address] 05/18/2020 09:15:03 05/25/2020 11:24:51 Adult health examination 641758988 Z00.00 see Risk Assessment and Lifestyle Change Counseling section above Counseling 119464042 Z71 .9 including cardiovasc ular risk reduction counseling Depression screening 171 280221 Z13.31 depression screening tool administer ed, entered into emr, scored and discussed, time greater than 7.5 minutes Screening for alcohol abuse 227138136 Z13.39 Recurrent major depression 08942296 F33.9 Will increase to 300mg - call with side effects or concerns. F/u 6-8wk. Rheumatoid arthritis 698 59509 M06.9 pt desires new rheum specialist . Will call with name. Screening mammography 24 888597 Z12.31 due to [facility] [id number] Moy Shipley MD [facility], [address] [address] 05/16/2020 08:02:37 05/16/2020 16:09:45 Seropositive rheumatoid arthritis 217229764 M05.9 Patient still having symptoms, she did [...] verbalized understand ing. Active or passive immunization 057214818 Z23 Patient got the flu shot and PCV-13. Long-term drug therapy 566285910 Z79.899 On MTX. Humira started today. Monitor CBC and CMP. [id number] Zoila Acosta NP , [facility], [address] [place] [address] 05/27/2020 16:11:43 05/30/2020 15:46:20 Unilateral mastalgia 059111433 N64.4 Reassured. Exam wnl with no palpable [...] ball with her kids. F/u if worsening. [id number] Debra Villafuerte, OD [facility], [address] [address] 12/22/2020 08:29:40 12/22/2020 09:31:03 Dry eyes 599636069 H04.129 pt ed. recommend systane Ultra qid OU. Ophthalmic examination and evaluation 71897725 Z01.01 Presbyopia 27033233 H52. 4 [id number] Vani Ashraf MD , [facility], [address] [place] [address] 11/01/2022 10:52:28 11/01/2022 17:34:42 Adult health examination 011500935 Z00.00 repeat pap 3 years if normallabs todaytd todaymammo due, order in Depression screening 171 387168 Z13.31 depression screening tool administer ed, 1 Screening for alcohol abuse 355732123 Z13.39 Alcohol use screening tool administer ed, 2 Screening for malignant neoplasm of colon 154399236 Z12.11 pt agrees to colonoscop y, aware risk missing cancer if not done Rheumatoid arthritis 698 70178 M05.9 stable, no current rheumoff MTX due to elevated LFTSrechec k todayoffer ed rheum consult, pt declines Recurrent major depression 02839837 F33.9 stable on med per pt Screening for malignant neoplasm of cervix 675839630 Z12.4 Active or passive immunization 056027871 Z23 [id number] Laura Correa DO , [facility], [address] [place] [address] 01/20/2023 10:01:42 01/20/2023 11:02:21 Rheumatoid arthritis 00417793 M05.9 Under care of rheum. No longer on DMARDS. Strain of right trapezius muscle 7568890567 4228860 S29.012A Trial of cyclobenza tonja. Discussed indication [...] further treatment. Somatic dy sfunction of rib 722930439 M99.08 Patient received the follow osteopathi c manipulati ve techniques : BLT, FPR. Tolerated well. Patient should drink plenty of fluids, and continue with stretches as directed. Patient may take Tylenol or Ibuprofen as needed as well as alternatin g heat/ice to the affected area. The patient should call with any worsening symptoms and follow-up prn. Somatic dy sfunction of upper limb 614148425 M99.07 Patient received the follow osteopathi c manipulati ve techniques : FPR, myofascial release . Tolerated well. Patient should drink plenty of fluids, and continue with stretches as directed. Patient may take Tylenol or Ibuprofen as needed as well as alternatin g heat/ice to the affected area. The patient should call with any worsening symptoms and follow-up prn. Chronic neck pain 154606 9781 107 M54.2 See above. Cervical s omatic dysfunction 332440653 M99.01 Patient received the follow osteopathi c manipulati ve techniques : myofascial release. Tolerated well. Patient should drink plenty of fluids, and continue with stretches as directed. Patient may take Tylenol or Ibuprofen as needed as well as alternatin g heat/ice to the affected area. The patient should call with any worsening symptoms and follow-up prn. [id number] Debra Villafuerte, OD [facility], [facility] [address] [place] [address] 01/22/2023 09:45:51 01/22/2023 13:52:52 Dry eyes 627060870 H04.129 pt ed. recommend systane Ultra qid OU. lid scrub qd, hot compress qd. Ophthalmic examination and evaluation 52954349 Z01.01 Presbyopia 41250361 H52. 4 [id number] Vani Ashraf MD , [facility], [address] [place] [address] 03/26/2024 14:07:55 03/26/2024 14:33:53 Adult health examination 725713176 Z00.00 pap 5 years 10/24mammo 05/25labs todaytd UTDnever smokercolo n 10 years 03/27 dr vasquez advised i dont know what we would do with an abnormal progestero ne level, but if she wants it i will order Depression screening 171 081559 Z13.31 depression screening tool administer ed, 0 Screening for alcohol abuse 249451048 Z13.39 Alcohol use screening tool administer ed, 3 Active or passive immunization 400609103 Z23 Screening mammography 24 402064 Z12.31 Recurrent major depression 75292558 F33.9 fair control on med per ptdoesnt want to increase or changeoffe red psych consult for medspt will think about it Rheumatoid arthritis 698 91751 M05.9 stable, sees rheum Memory impairment 589978 006 R41.3 offered MOCA testing, pt declines Health Concerns Section Related Observation LastModified by Organization Detai ls LastModified Time None Recorded Concern Status LastModified by Organization Details LastModified Time None Recorded Advance Directives Directive None Recorded Payers Encounter Date Sequence Insurance Name Policy Number Policy Newby Covered Member ID Newby Member ID Guarantor Name 12/22/2020 1 [employer] (PPO) [id number] 1 Addis A Kapoor [id number] Alexa Hilariolard 11/01/2022 1 [employer]) [id number] 1 Addis A Kapoor [id number] Alexa Kapoor 01/20/2023 1 [employer] (PP[employer]) [id number] 1 Addis A Kapoor [id number] Alexa Kapoor 01/22/2023 1 [facility] [id number] 1 Addis Whipple Kapoor [id number] Alexa Kapoor 03/26/2024 1 [facility] [id number] 1 Addis Whipple Kapoor [id number] Alexa Kapoor Notes Date Note Type Note Provider Name and Address Organization Details Recorded Time 1 text/html Comprehensive Eye ExamReported bypatient.Quality:1 year exam; does not wear glasses or contacts;blurred vision near without glasses Location:bilateral Associated Symptoms:no redness; no itching; no floaters;dryness Debra Villafuerte, OD [address] [place], [address], [facility] 12/22/2020 13:06:57 3 text/html Patient presents to the office today for an annual wellness visit. 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 Was on MTX but stopped due to elevated liver BW. Sx mild , does not wish to pursue further treatment at this timeMenses regularDepression well controlled on med Vani Ashraf MD [address] [place] [address], [address], [facility] 11/01/2022 11:38:51 3 text/html Patient presents to the office today for shoulder pain, Pain in R. shoulder area, hurts to take a deep breath, sharp pain when rolling over in bed and getting out of the carstarted yesterdayneck pain for the past week standard neck pain cannot associate with any event in particular RA has been well controlled Laura Correa DO [address] [place], [address], [facility] 01/22/2023 11:09:02 3 text/html Comprehensive Eye ExamReported bypatient.Quality:2 year exam; no blurred vision Context:currently wears glasses Modifying factors:wears glasses for readers only Associated Symptoms:no redness; no itching; no floaters;dryness Did not bring OTC readers today.C/O feeling like she might be straining to see distances now.systane gtt a few times per week Debra Villafuerte OD [address] [place], [address], [facility] 01/22/2023 13:00:21 5 text/html 48 yo F for [place]. Taking meds as listed. Depression not well controlled but doesnt want to increase med.Hearing loss worse, but has hearing aid and doesnt wear it.notes some memory loss, Cant remember students names from last semester.SIster recommends progesterone level. Menses fairly regular Vani Ashraf MD [address] [place], [address], [facility] 03/26/2024 14:42:00 OBGyn Episode No OBEpisode recorded.
== END 2024-04-29 11:48 | disposition home or self-care (01) ==
PROVIDERS: PCP Nurse Practitioner Family; Visit Provider Student in an Organized Health Care Education/Training Program
DX: M05.79 Rheumatoid arthritis with rheumatoid factor of multiple sites without organ or systems involvement (principal); Z79.899 Other long term (current) drug therapy
CPT/HCPCS: 99213

== ENCOUNTER 2024-11-06 10:44 | Outpatient (REF) | payer OTHER, SELFPAY ==
--- OUTSIDE RECORDS SUMMARY | 2024-11-06 11:46 | XMS_ITS | Encounter Summary ---
Author Organization [facility] Address [address] [place] [address] Phone Care Team Providers Care Industrial Health And Safety Professor Name Role Phone Aubrie Toribio NP Unavailable Tejas Snell MD Unavailable Ting Pearson SENIOR STAFF PSYCHOLOGIST Unavailable [phone] Mary Lizarraga MD Unavailable [phone] Sera Hector NP Unavailable Unknown, Unknown Primary Care Provider Aubrie Buckner NP Primary Care Provider Anna Ashraf MD Primary Care Provider + Encounter Details Date Type Department Care Team (Late st Contact Info) Description 08/11/2020 Ancillary Orders Virtual Department [address] [place] [address] Aubrie Toribio, SENIOR STAFF PSYCHOLOGIST [address] [place] [address] [email or web address] Unspecified lump in the left breast, unspecified quadrant Social History Tobacco Use Types Packs/Day Years Used Date Smoking Tobacco: Never Assessed Comments Unknown Sex and Gender Information Value Date Recorded Sex Assigned at Not on file Legal Sex Female 9:26 PM EDT Gender Identity Not on file Sexual Orientation Not on file documented as of this encounter Plan of Treatment Not on file documented as of this encounter Results * BI US BREAST LIMITED (LEFT) (08/15/2020 1:35 PM EDT) Anatomical Region Laterality Modality Breast Left, Breast Bilateral Left Ul trasound 08/15/2020 1:17 PM EDT Impressions 08/15/2020 1:34 PM EDT Probably benign finding based on mammographic and sonographic correlation. Follow-up ultrasound recommended in 3 months follow-up ultrasound and mammogram in 6 months presuming no change. Narrative 08/15/2020 1:34 PM EDT Ultrasonic examination of the right breast is performed as a second look after recommendation for left breast biopsy at the 10:00 position on outside ultrasound. Scanning in the area does demonstrate an area of mixed echogenicity without abnormal flow or clear mass features. The outside images can be partially replicated but in real-time this appears to be a larger zone of tissue, possibly with some mildly dilated ducts but no discrete masses. The alternatives of biopsy, MRI, and surveillance ultrasound and mammography are discussed with the patient. I do not feel that represents a true focal change based on comparison to the mammograms of July 14 and March 25, 2018. It was recommended to the patient have a follow- up ultrasound in 3 months with a follow-up mammogram in 6 months. If she is anxious about that strategy, an MRI in the short run would be suggested before attempting biopsy. Procedure Note Young Sears MD - 08/15/2020 Ultrasonic examination of the right breast is performed as a second lookafter recommendation for left breast biopsy at the 10:00 position onoutside ultrasound. Scanning in the area does demonstrate an area of mixedechogenicity without abnormal flow or clear mass features. The outsideimages can be partially replicated but in real-time this appears to be alarger zone of tissue, possibly with some mildly dilated ducts but nodiscrete masses. The alternatives of biopsy, MRI, and surveillanceultrasound and mammography are discussed with the patient. I do not feelthat represents a true focal change based on comparison to the mammogramsof July 14 and March 25, 2018. It was recommended to thepatient have a follow-up ultrasound in 3 months with a follow-up mammogramin 6 months. If she is anxious about that strategy, an MRI in the shortrun would be suggested before attempting biopsy. IMPRESSION: Probably benign finding based on mammographic and sonographic correlation.Follow-up ultrasound recommended in 3 months follow-up ultrasound andmammogram in 6 months presuming no change. us Aubrie Toribio NP IMG US BREAST Final R esult documented in this encounter Visit Diagnoses Diagnosis Unspecified lump in the left breast, unspecified quadrant Unspecified lump in the left breast, unspecified quadrant documented in this encounter Care Teams Industrial Health And Safety Professor Relationship Specialty Start Date End Date Unknown, Unknown, [address] [place] [address] PCP - General 01/30/17 08/14/20 Aubrie Toribio NP [address] [place] [address] [email or web address] PCP - General Family Medicine 08/15/20 04/02/23 Anna Ashraf MD [address] [place] [address] [email or web address] PCP - General Family Medicine 04/03/23 Aubrie Toribio NP [address] [place] [address] [email or web address] Historical LMR Provider 12/22/16 Tejas Snell MD [address] [place] [address], [facility] [address] [place] [address] [email or web address] Historical LMR Provider 12/22/16 08/14/20 Ting Pearson NP [address] [place] [address] [email or web address] Historical LMR Provider 12/22/16 03/11/21 Mary Lizarraga MD [address], [place] [address] Historical LMR Provider 12/22/16 2 Sera Hector NP [address] [place] [address] Historical LMR Provider 12/22/16 documented as of this encounter Additional Source Comments The information contained in this document represents components of the legal health record. It is not the complete legal health record.[facility]
--- OUTSIDE RECORDS SUMMARY | 2024-11-06 11:46 | XMS_ITS | Encounter Summary ---
Author Organization [facility] Address [address] [place] [address] Phone Care Team Providers Care Medical Legal Investigator Name Role Phone Aubrie Toribio NP Unavailable Tejas Snell MD Unavailable Ting Pearson INSECTICIDE EXPERT Unavailable Mary Lizarraga MD Unavailable [phone] Sera Hector INSECTICIDE EXPERT Unavailable Unknown, Unknown Primary Care Provider Aubrie Buckner NP Primary Care Provider Anna Ashraf MD Primary Care Provider + Encounter Details Date Type Department Care Team (Late st Contact Info) Description 08/08/2020 Ancillary Orders [facility],Outside Imaging [address] [place] [address] System, Provider Not In, [place] [address] Social History Tobacco Use Types Packs/Day Years Used Date Smoking Tobacco: Never Assessed Comments Unknown Sex and Gender Information Value Date Recorded Sex Assigned at Not on file Legal Sex Female 9:26 PM EDT Gender Identity Not on file Sexual Orientation Not on file documented as of this encounter Plan of Treatment Not on file documented as of this encounter Results * US Breast Outside (No Interpretation) (08/03/2020 12:00 AM EDT) Narrative SYSTEMGENERATED, DOCUMENTATION - 08/08/2020 2:27 PM EDT This study is for PACS storage only and not for interpretation. us Provider Not In System PhD IMG OUTSIDE IMAGING W /OUT INTERPRETATION Final Result documented in this encounter Visit Diagnoses Not on filedocumented in this encounter Care Teams Medical Legal Investigator Relationship Specialty Start Date End Date Unknown, Unknown, [address] [place] [address] PCP - General 01/30/17 08/14/20 Aubrie Toribio NP [address] [place] [address] [email or web address] PCP - General Family Medicine 08/15/20 04/02/23 Anna Ashraf MD [address] [place] [address] [email or web address] PCP - General Family Medicine 04/03/23 Aubrie Toribio INSECTICIDE EXPERT [address] [place] [address] [email or web address] Historical LMR Provider 12/22/16 Tejas Snell MD [address] [place] [address] [email or web address] Historical LMR Provider 12/22/16 08/14/20 Ting Pearson NP [address] [place] [address] [email or web address] Historical LMR Provider 12/22/16 03/11/21 Mary Lizarraga MD [address], [place] [address] Historical LMR Provider 12/22/16 2 Sera Hector NP [address] [place] [address] Historical LMR Provider 12/22/16 documented as of this encounter Additional Source Comments The information contained in this document represents components of the legal health record. It is not the complete legal health record.[facility]
--- OUTSIDE RECORDS SUMMARY | 2024-11-06 11:46 | XMS_ITS | Encounter Summary ---
Author Organization [facility] Address [address] [place] [address] [place] [address] Phone Care Team Providers Care Pr Internship Name Role Phone Aubrie Toribio NP Unavailable [phone] Anna Ashraf MD Primary Care Provider + Encounter Details Date Type Department Care Team (Late st Contact Info) Description 04/03/2023 Procedure Pass [facility]oscopy Admitting Dept Virtual Department [address] [place] [address] Social History Tobacco Use Types Packs/Day Years Used Date Smoking Tobacco: Never Smokeless Tobacco: Never Alcohol Use Standard Drinks/Week Comments Yes 2 (1 standard drink = 0.6 oz pur e alcohol) Education Answer Date Recorded Are you interested in more education? Not on art e 06/29/2022 Are you concerned about learning? Not on file 06/29/2022 No 06/29/2022 No 06/29/2022 Digital Access Answer Date Recorded No 07/27/2022 No 07/27/2022 Reliable internet access at home? Not on file 07/27/2022 Device with a working camera? Not on file Intimate Partner Violence Answer Date R ecorded Are you denied basic needs s uch as food, clothing, or medical care? No 04/03/2023 In the past 12 months have y ou been in a relationship with a person who hurts, threatens, or tries to control you? No 04/03/2023 Are you denied basic needs s uch as food, clothing, or medical care? No 04/03/2023 In the past 12 months have y ou been in a relationship with a person who hurts, threatens, or tries to control you? No 04/03/2023 Comments No Sex and Gender Information Value Date Recorded Sex Assigned at Not on file Legal Sex Female 9:26 PM EDT Gender Identity Not on file Sexual Orientation Not on file documented as of this encounter Plan of Treatment Not on file documented as of this encounter Visit Diagnoses Not on filedocumented in this encounter Care Teams Pr Internship Relationship Specialty Start Date End Date Anna Ashraf MD [address] [place] [address] [email or web address] PCP - General Family Medicine 04/03/23 Aubrie Toribio NP [address] [place] [address] [email or web address] Historical LMR Provider 12/22/16 documented as of this encounter Additional Source Comments The information contained in this document represents components of the legal health record. It is not the complete legal health record.[facility]
--- OUTSIDE RECORDS SUMMARY | 2024-11-06 11:46 | XMS_ITS | Encounter Summary ---
Author Organization [facility] Address [address] [place] [address] Phone Care Team Providers Care Executive Receptionist Name Role Phone Aubrie Toribio NP Unavailable [phone] Tejas Snell MD Unavailable Ting Pearson PARTS ADVISOR Unavailable Mary Lizarraga MD Unavailable [phone] Sera Hector NP Unavailable Unknown, Unknown Primary Care Provider Aubrie Buckner NP Primary Care Provider Anna Ashraf MD Primary Care Provider + Encounter Details Date Type Department Care Team (Late st Contact Info) Description 08/11/2020 Procedure Pass [facility] [address] [place] [address] Social History Tobacco Use Types Packs/Day Years [...] on filedocumented in this encounter Care Teams Executive Receptionist Relationship Specialty Start Date End Date Unknown, Unknown, [address] [place] [address] PCP - General 01/30/17 08/14/20 Aubrie Toribio PARTS ADVISOR [address] [place] [address] [email or web address] PCP - General Family Medicine 08/15/20 04/02/23 Anna Ashraf MD [address] [place] [address] [email or web address] PCP - General Family Medicine 04/03/23 Aubrie Toribio NP [address] [place] [address] [email or web address] Historical LMR Provider 12/22/16 Tejas Snell MD [address] [place] [address] [email or web address] Historical LMR Provider 12/22/16 08/14/20 Ting Pearson NP [address] [place] [address] [email or web address] Historical LMR Provider 12/22/16 03/11/21 Mary Lizarraga MD [address] [place] [address] Historical LMR Provider 12/22/16 2 Sera Hector NP [address] [place] [address] Historical LMR Provider 12/22/16 documented as of this encounter Additional Source Comments The information contained in this document represents components of the legal health record. It is not the complete legal health record.[facility]
--- OUTSIDE RECORDS SUMMARY | 2024-11-06 11:46 | XMS_ITS | Encounter Summary ---
Author Organization [facility] Address [address] [place] [address] Phone Care Team Providers Care Logistics Clerk Name Role Phone Aubrie Toribio NP Unavailable Tejas Snell MD Unavailable Ting Pearson LINE UP EXAMINER Unavailable Mary Lizarraga MD Unavailable [phone] Sera Hector NP Unavailable Unknown, Unknown Primary Care Provider Aubrie Buckner NP Primary Care Provider Anna Ashraf MD Primary Care Provider + Encounter Details Date Type Department Care Team (Late st Contact Info) Description 08/05/2020 Ancillary Orders Virtual Department [address] [place] [address] Aubrie Toribio, LINE UP EXAMINER [address] [place] [address] [email or web address] Other abnormal and inconclusive findings on diagnostic imaging of breast Social History Tobacco Use Types Packs/Day Years Used Date Smoking Tobacco: Never Assessed Comments Unknown Sex and Gender Information Value Date Recorded Sex Assigned at Not on file Legal Sex Female 9:26 PM EDT Gender Identity Not on file Sexual Orientation Not on file documented as of this encounter Plan of Treatment Not on file documented as of this encounter Visit Diagnoses Diagnosis Other abnormal and inconclusive findings on diagnostic imaging of breast documented in this encounter Care Teams Logistics Clerk Relationship Specialty Start Date End Date Unknown, Unknown, [address] [place] [address] PCP - General 01/30/17 08/14/20 Aubrie Toribio NP [address] [place] [address] [email or web address] PCP - General Family Medicine 08/15/20 04/02/23 Anna Ashraf MD [address] [place] [address] [email or web address] - General Family Medicine 04/03/23 Aubrie Toribio NP [address] [place] [address] [email or web address] Historical LMR Provider 12/22/16 Tejas Snell MD [address] [place] [address] [email or web address] Historical LMR Provider 12/22/16 08/14/20 Ting Pearson NP [address] [place] [address] [email or web address] Historical LMR Provider 12/22/16 03/11/21 Mary Lizarraga MD [address] [place] [address] Historical LMR Provider 12/22/16 2 Sera Hector NP [address] [place] [address] Historical LMR Provider 12/22/16 documented as of this encounter Additional Source Comments The information contained in this document represents components of the legal health record. It is not the complete legal health record.[facility]
--- OUTSIDE RECORDS SUMMARY | 2024-11-06 11:46 | XMS_ITS | Clinical Summary ---
Author Organization [facility] Address [address] [facility] [address] [place] [address] Phone Care Team Providers Care Bed Spring Maker Name Role Phone Aubrie Toribio NP Unavailable [phone] Anna Ashraf MD Primary Care Provider + Allergies No known active allergies Medications buPROPion (WELLBUTRIN XL) 300 MG ER 24 hr tablet Take 300 mg by mouth daily. Active Immunizations Immunization Administration Dates Next Due COVID-19 (Pre-12/24) Pfizer Vaccine, mRNA, PF ,05/28/2020 Social History Tobacco Use Types Packs/Day Years Used Date Smoking Tobacco: Never Smokeless Tobacco: Never Tobacco Cessation:Counseling Given: Not Answered Alcohol Use Standard Drinks/Week Comments Yes 2 [...] on file Sexual Orientation Not on file Last Filed Vital Signs Vital Sign Reading Time Taken Comments Blood Pressure 131/76 04/03/2023 10:29 AM EST Pulse 74 04/03/2023 10:29 AM EST Temperature 36.4 C (97.5 F) 04/03/2023 10:14 AM EST Respiratory Rate 19 04/03/2023 10:29 AM EST Oxygen Saturation 100% 04/03/2023 10:29 AM EST Inhaled Oxygen Concentration - - Weight 68.9 kg (152 lb) 04/01/2023 1:46 PM EST Height 157.5 cm (5' 2 ) 04/01/2023 1:46 PM EST Body Mass Index 27.8 04/01/2023 1:46 PM EST Plan of Treatment Health Maintenance Due Date Last Done Comments LIPID PANEL 1975 DEPRESSION SCREENING 1988 HEPATITIS C SCREENING 1994 HIV ONE-TIME SCREENING (18-65 YEARS) 1994 SCREENING FOR DIABETES 08/19/2011 COLOGUARD 2021 FIT TEST 2021 FOBT 2021 SIGMOIDOSCOPY 2021 VIRTUAL COLONOSCOPY 2021 MAMMOGRAM 08/03/2022 08/03/2020, 07/02, 03/25/2018 INFLUENZA VACCINE (#1) 2024 , 12/25/2021, 01/20/2021, Additional history exists COVID-19 VACCINE (2024- season) 2024 12/13/2022, 01/27/2022, 07/16/2021, Additional history exists PAP SMEAR 11/01/2025 11/01/2022, 01/30/2017 Adult Td,Tdap Booster 11/01/2032 11/01/2022, 013 COLONOSCOPY 04/03/2033 04/03/2023 COLORECTAL CANCER SCREENING 04/03/2033 PNEUMOCOCCAL VACCINES (0-49 years) Aged Out 03/23/2019 No longer eligible based on patient's age to complete this topic SMOKING STATUS SCREENING (Once After 26 Yrs) Completed 04/03/2023 HEPATITIS A VACCINES Aged Out No long er eligible based on patient's age to complete this topic HIB VACCINES Aged Out No longer eligi ble based on patient's age to complete this topic MENINGOCOCCAL VACCINES (ACWY) Aged Out No longer eligible based on patient's age to complete this topic MENINGOCOCCAL VACCINES (B) Aged Out N o longer eligible based on patient's age to complete this topic Medical Devices Not on file Procedures Procedure Name Priority Date/Time Associated Diagnosis Comments ENDOSCOPY, COLON 04/03/2023 9:47 AM EST PAP TEST Routine 11/01/2022 12:00 AM EDT BI MAMMOGRAM OUTSIDE (NO INTERPRETATION) Routine 08/03/2020 12:05 AM EDT from Last 3 Months or Most Recently Relevant to Health Maintenance Results * ENDOSCOPY, COLON (04/03/2023 9:47 AM EST) Narrative Transcriptions Renetta Cannon MD - 04/03/2023 9:47 AM EST [facility] Patient Name: Alexa Crandall Attending MD:: RENETTA CANNON MD, Procedure Date: 04/03/2023 9:47 AM Date of : 1975 Age: 47 Admit Type: Outpatient Gender: Female Room: [facility] 05 Referring MD: Anna Ashraf MD Exam Type: Colonoscopy Indications: Screening for colorectal malignant neoplasm, Thisis the patient's first colonoscopy Medications: Monitored Anesthesia Care Procedure: Informed consent was obtained from the patientafter discussion of the indications, limitations, alternatives, benefits, and risks of the procedure. Risks specifically discussed include but are not limited to medication reactions, missed lesions, bleeding, perforation, or the need for emergent surgery. Throughout the procedure, the patient's blood pressure, pulse, end-tidal CO2, and oxygensaturations were monitored continuously. The Colonoscope was introduced through the anus and advanced to the terminal ileum, with identificationof the appendiceal orifice and IC valve. Thecolonoscopy was performed without difficulty. The patient tolerated the procedure well. The quality of thebowel preparation was good. The terminal ileum, ileocecal valve, appendiceal orifice, and rectum were photographed. Complications: No immediate complications. Estimated blood loss:None. Findings: The terminal ileum appeared normal. Examination of the right colon was repeated in retroflexion and again in NBI. Retroflexion wasalso performed in the rectum. The entire examined colon appeared normal. Impression: - The examined portion of the ileum was normal. - The entire examined colon is normal. - No specimens collected. Recommendation: - Patient has a contact number available for emergencies. The signs and symptoms of potential delayed complications were discussed with thepatient. Return to normal activities tomorrow. Written discharge instructions were provided to thepatient. - Repeat colonoscopy in 10 years for screening purposes. Renetta Cannon RENETTA CANNON MD 04/03/2023 10:11:13 AM This report has been signed electronically. Number of Addenda: 0 Note Initiated On: 04/03/2023 9:47 AM Procedure Code(s): --- Professional --- 18943, Colonoscopy, flexible; diagnostic, including collection of specimen(s) by brushing or washing, when performed (separateprocedure) --- Technical --- 62396, Colonoscopy, flexible; diagnostic, including collection of specimen(s) by brushing or washing, when performed (separateprocedure) CPT copyright 2021 [employer]. All rights reserved. The codes documented in this report are preliminary and upon broadcast operations technician reviewmay be revised to meet current compliance requirements. Procedure Date: 04/03/2023 9:47:[address] [place] [address] us Anna Ashraf MD GI PROCEDURE ORDERABLES Final Result * Pap Test (11/01/2022 12:00 AM EDT) 11/01/2022 11/02/2022 8:2 0 AM EDT Narrative SEE NARRATIVE - 11/07/2022 12:34 PM EDT [address] [address] Mixing Machine Tender Cork Gasket: Loree Lee MD HOME BASED ASSISTANT Cytology Report FINAL DIAGNOSIS A. PAP SMEAR (SUREPATH) CE: SPECIMEN ADEQUACY: Satisfactory for evaluation; transformation zone present. INTERPRETATION: NEGATIVE FOR INTRAEPITHELIAL LESION OR MALIGNANCY. Reactive changes. Electronically Signed Out By: MD Meme Angel CT(ASCP) By his/her signature above, the pathologist listed as making the Final Diagnosis certifies that he/she has personally reviewed this case and confirmed or corrected the diagnosis. The Pap test is a screening test primarily for squamous cancers and precursors and has associated false-negative and false-positive results. New technologies such as liquid-based preparations may decrease but will not eliminate all false-negative results. Regular sampling and follow-up of unexplained clinical signs and symptoms are recommended to minimize false negative results. PROCEDURES/ADDENDA HPV Testing (Requested) Ordered Date: 11/02/2022 A. PAP SMEAR (SUREPATH) CE: Human Papilloma Virus Test NEGATIVE for high-risk Human Papilloma Virus types 16, 18, 45 and the Other high risk probe set (Includes 31, 33, 35, 39, 51, 52, 56, 58, 59, 66, 68) Note: Testing performed by payever Onclarity HR-HPV analysis. Clinical correlation is advised. This HPV test was performed at [facility], [address] [place] [address]. This test has been FDA approved for SurePath cervical cytology specimens. The accuracy and precision of this test for all other specimen sources has been verified in the Cytopathology Laboratory of the [facility] and has not been cleared or approved by the U.S. Food and Drug Administration. Clinical correlation is advised. CLINICAL HISTORY Date of Last Menstrual Period: Not Provided Menstrual History: Unknown Other Clinical Conditions: Screening Pap SPECIMEN SOURCE A: PAP SMEAR (SUREPATH) CE Patient Name: CRANDALLALEXA PETERSON : 1975 (Age: 47) Sex: F [facility] Location: [facility] Date of Collection: 11/01/2022 Date of Reported: 11/07/2022 12:34 Results to: Anna Ashraf MD us Anna Ashraf MD CYTOLOGY ORDERABLES Suzie mariee Result SEE NARRATIVE * Mammogram Outside (No Interpretation) (08/03/2020 12:05 AM EDT) Narrative SYSTEMGENERATED, DOCUMENTATION - 08/10/2020 3:09 PM EDT This study is for PACS storage only and not for interpretation. us Provider Not In System PhD IMG OUTSIDE IMAGING W /OUT INTERPRETATION Final Result from Last 3 Months or Most Recently Relevant to Health Maintenance Insurance [employer] [facility] [employer] [employer]ICE [place] [address] [address] [place] [address] CHOICE CHOICE CHOICE CHOICE COMMUNITY CHOICE CHOICE [employer] [facility] Care Teams Bed Spring Maker Relationship Specialty Start Date End Date Anna Ashraf MD [address] [place] [address] [email or web address] PCP - General Family Medicine 04/03/23 Aubrie Toribio NP [address] [place] [address] [email or web address] LMR Provider 12/22/16 Additional Source Comments The information contained in this document represents components of the legal health record. It is not the complete legal health record.[facility]
--- OUTSIDE RECORDS SUMMARY | 2024-11-06 11:46 | XMS_ITS | Encounter Summary ---
Author Organization [facility] Address [address] [place] [address] Phone Care Team Providers Care Human Resources Technician Name Role Phone Aubrie Toribio NP Unavailable Tejas Snell MD Unavailable Ting Pearson MIXING MACHINE FEEDER Unavailable [phone] Mary Lizarraga MD Unavailable [phone] Sera Hector MIXING MACHINE FEEDER Unavailable [phone] Unknown, Unknown Primary Care Provider Aubrie Buckner NP Primary Care Provider Anna Ashraf MD Primary Care Provider + Encounter Details Date Type Department Care Team (Late st Contact Info) Description 08/10/2020 Ancillary Orders [facility],Outside Imaging [address] [place] [address] System, Provider Not In, [place] [address] Social History Tobacco Use Types Packs/Day Years Used Date Smoking Tobacco: Never Assessed Comments Unknown Sex and Gender Information Value Date Recorded Sex Assigned at Not on file Legal Sex Female 9:26 PM EDT Gender Identity Not on file Sexual Orientation Not on file documented as of this encounter Plan of Treatment Not on file documented as of this encounter Results * Mammogram Outside (No Interpretation) (08/03/2020 12:05 AM EDT) Narrative SYSTEMGENERATED, DOCUMENTATION - 08/10/2020 3:09 PM EDT This study is for PACS storage only and not for interpretation. us Provider Not In System PhD IMG OUTSIDE IMAGING W /OUT INTERPRETATION Final Result * Mammogram Outside (No Interpretation) (07/14/2020 12:00 AM EDT) Narrative SYSTEMGENERATED, DOCUMENTATION - 08/10/2020 3:09 PM EDT This study is for PACS storage only and not for interpretation. us Provider Not In System PhD IMG OUTSIDE IMAGING W /OUT INTERPRETATION Final Result * Mammogram Outside (No Interpretation) (03/25/2018 12:00 AM EST) Narrative SYSTEMGENERATED, DOCUMENTATION - 08/10/2020 3:08 PM EDT This study is for PACS storage only and not for interpretation. us Provider Not In System PhD IMG OUTSIDE IMAGING W /OUT INTERPRETATION Final Result documented in this encounter Visit Diagnoses Not on filedocumented in this encounter Care Teams Human Resources Technician Relationship Specialty Start Date End Date Unknown, Unknown, [address] [place] [address] PCP - General 01/30/17 08/14/20 Aubrie Toribio NP [address] [place] [address] [email or web address] PCP - General Family Medicine 08/15/20 04/02/23 Anna Ashraf MD [address] [place] [address] [email or web address] PCP - General Family Medicine 04/03/23 Aubrie Toribio NP [address] [place] [address] [email or web address] Historical LMR Provider 12/22/16 Tejas Snell MD [address] [facility], [address] [place] [address] [email or web address] Historical LMR Provider 12/22/16 08/14/20 Ting Pearson NP [address] [place] [address] [email or web address] Historical LMR Provider 12/22/16 03/11/21 Mary Lizarraga MD [address], [place] [address] Historical LMR Provider 12/22/16 2 Sera Hector NP [address] [place] [address] Historical LMR Provider 12/22/16 documented as of this encounter Additional Source Comments The information contained in this document represents components of the legal health record. It is not the complete legal health record.[facility]
[2024-11-06 13:00] LABS: MANUAL DIFF FLAG NO
[2024-11-06 13:17] LABS: Alanine Aminotransferase 27 U/L (0-31); Albumin Level 4.5 g/dL (3.5-5.0); Alkaline Phosphatase 48 U/L (39-117); Anion Gap 10 (12-20); Aspartate Amino Transferase 30 U/L (5-31); Blood Urea Nitrogen 16 mg/dL (9-16); Calcium 9.2 mg/dL (8.4-10.2); Carbon Dioxide 30 mmol/L (22-29); Chloride 104 mmol/L (96-108); Estimated Glomerular Filt Rate > 60; Hematocrit 40.6 % (37.0-47.0); Hemoglobin 14.4 g/dl (12.0-16.0); Imm Gran Abs Auto 0.00 X10*3/uL (0.00-0.03); Imm Gran Pct Auto 0.0 % (0.0-0.4); Lymphocytes Absolute Auto 1.6 X10*3/uL (1.2-4.9); Mean Corpuscular HGB Conc 35.5 g/dl (31.0-35.0); Mean Corpuscular Hemoglobin 32.4 pg (27.0-33.0); Mean Corpuscular Volume 91.4 fL (80.0-98.0); NRBC Abs Auto 0.000 X10*3/uL (0.0-0.012); NRBC Pct Auto 0.0 /100WBC (0.0-0.2); Platelet Count 152 X10*3/uL (160-400); Potassium 4.5 mmol/L (3.3-5.1); Red Blood Count 4.44 X10*6/uL (4.20-5.50); Sodium 139 mmol/L (135-145); Total Protein 7.1 g/dL (6.5-8.0); White Blood Count 4.4 X10*3/uL (4.8-10.8)
[2024-11-09 04:02] LABS: HBS Num1 968.38 mIU/mL (0-7.99); HBc Num1 0.07 S/CO (0.00-0.79); HBsAGNum1 0.51 S/CO (0.00-0.99); Hepatitis A Antibody IgM 0.21 Index (0-0.79); Hepatitis B Surface Antigen Negative (Negative); ~HepC Num1 0.08 S/CO (0.00-0.79); ~Hepatitis A Antibody IgM Nonreactive (Nonreactive); ~Hepatitis B Surface Antibody REACTIVE (Nonreactive); ~Hepatitis C Antibody Nonreactive (Nonreactive)
== END 2024-11-06 10:45 | disposition home or self-care (01) ==
LOC: HO.10HDL 10:44
PROVIDERS: Visit Provider Student in an Organized Health Care Education/Training Program
DX: Z11.59 Encounter for screening for other viral diseases (principal); M05.79 Rheumatoid arthritis with rheumatoid factor of multiple sites without organ or systems involvement; Z79.899 Other long term (current) drug therapy
CPT/HCPCS: 36415; 80053; 85025; 85652; 86140; 86481; 86704; 86706; 86709; 86803; 87340

== ENCOUNTER 2024-11-09 09:56 | Outpatient (AMB) | payer OTHER, SELFPAY ==
--- NOTE | 2024-11-09 09:59 | A.OFFVIS_ITS ---
Vital Signs 11/09/24 10:04 Height 5 ft 2 in Weight 164 lb 14.492 oz BMI 30.2 BP 134/80 Blood Pressure Location Rt brachial Position Sitting Pulse 84 Pulse Source Pulse Oximeter Pulse Oximetry (%) 97 Oxygen Delivery Method Room Air Intake Visit Reasons: RA Intake Note: Patient presents for RA follow up. Allergies No Known Allergies Allergy (Verified 11/09/24 10:03) Medication List - Last Reconciled 11/09/24 by Eliz Dalal MD bupropion HCl XL 300 mg PO QAM hydroxychloroquine 400 mg (2 x 200 mg) PO DAILY 90 days ibuprofen 400 mg PO Q8H PRN HPI Comments Details: Patient is a 49 -year-old female with seropositive rheumatoid arthritis here today for follow up Interval History: Patient last seen 04/29/24 with me - On Hydroxychloroquine 200mg bid - Doing overall the same: has good days and bad days - No active synovitis Today - Hydroxychloroquine 200mg bid - Has been out of medication for a few weeks and noting worsening stiffness since being off the medication Rheumatologic History: Seropositive RA April 2019 -Diagnosed, methotrexate 8 tabs weekly August 2020- 8 tabs methotrexate, failed sulfasalazine, Humira added December 2020- elevated LFTs, methotrexate decreased to 5 tabs weekly, Humira March 2021- 5 tabs methotrexate , Humira discontinue, Enbrel started-continued pain June 2021- 5 tab methotrexate , Enbrel discontinued-no difference November 2021- patient would like to trial off methotrexate. HCQ 07/2023 effective Current Rheumatology Medication(s): Hydroxychloroquine 200mg bid PFSH Medical History Rheumatoid arthritis Surgical History H/O shoulder surgery Hx of section Family History Mother No problems noted. Father No problems noted. Social History Alcohol intake: current Alcohol intake frequency: a few times a week Alcohol type: beer Patient Tobacco Use Status: Never used Tobacco e-Cigarette/Vaping Use: Never Used Review of Systems Const Details: Review of Systems Constitutional: Denies fever, chills, weight loss ENT: Denies vision changes, eye pain or eye redness, dental caries, dry mouth GI: Denies nausea, vomiting, diarrhea, abdominal pain, change in BM Pulm: Denies SOB, ONEIL, hemoptysis, wheezing Cards: Denies chest pain, palpitations Skin: Denies Raynaud's, rash, nail changes, photosensitivity, DISABILITY COORDINATOR: Denies headaches, weakness, paresthesias, recurrent falls MSK: as per HPI All other systems reviewed and are unremarkable except noted above Physical Exam Exam Exam: Vital signs reviewed Physical Examination CONSTITUITIONAL Patient alert and cooperative. Well appearing and in no apparent painful distress MSK Hands * Right Hand: Able to make a fist. No swelling or tenderness to palpation of the MCPs, PIPs or DIPs. No deformities noted. * Left Hand: Able to make a fist. No swelling or tenderness to palpation of the MCPs, PIPs or DIPs. No deformities noted. Wrists * Right Wrist: Full ROM to flexion and extension. No swelling or TTP * Left Wrist: Full ROM to flexion and extension. No swelling or TTP Elbows * Right Elbow: Full ROM. No swelling or TTP. No TTP of the medial epicondyle. No TTP of the lateral epicondyle * Left Elbow: Full ROM. No swelling or TTP. No TTP of the medial epicondyle. No TTP of the lateral epicondyle Shoulders * Right shoulder: Full ROM. No swelling noted. No TTP of the AC joint. No TTP of the subacromial bursa. No TTP of the posterior shoulder * Left shoulder: Full ROM. No swelling noted. No TTP of the AC joint. No TTP of the subacromial bursa. No TTP of the posterior shoulder Knees * Right knee: Full ROM. No swelling noted. No TTP of the knee joint line. No TTP of pes anserine bursa * Left knee: Full ROM. No swelling noted. No TTP of the knee joint line. No TTP of pes anserine bursa. Ankles * Right ankle: Good ankle dorsiflexion and plantar flexion. No swelling. No TTP of the ankle joint * Left ankle: Good ankle dorsiflexion and plantar flexion. No swelling. No TTP of the ankle joint Feet * Right foot: Negative squeeze test * Left foot: Negative squeeze test Tender points? * No tenderness to palpation of the bilateral trapezius, supraspinatus, anterior costochondral junctions, bilateral suboccipital muscle insertions SKIN No rashes Vital Signs: Last Vital Signs Pulse 84 11/09/24 10:04 BP 134/80 11/09/24 10:04 Pulse Ox 97 11/09/24 10:04 Oxygen Delivery Method Room Air 11/09/24 10:04 BMI result Body Mass Index 30.2 Results Reviewed Results Reviewed: Laboratory Tests 11/06/24 10:50 WBC 4.4 L RBC 4.44 Hgb 14.4 Hct 40.6 Plt Count 152 L D ESR 5 Sodium 139 Potassium 4.5 Chloride 104 Carbon Dioxide 30 H BUN 16 Creatinine 0.87 AST 30 ALT 27 C-Reactive Protein < 0.10 Infectious serologies 06/08/22 11/06/24 08:11 10:50 Hepatitis A IgM Ab Nonreactive Hep Bs Antigen Negative Hep Bs Antibody REACTIVE Hep B Core Total Ab Nonreactive Hepatitis C Ab (EIA) Nonreactive TB Test (T-Spot) Com Negative Pending XR Hands 11/2021 FINDINGS: Right Hand: No fracture or dislocation. Normal carpal alignment. No significant joint space narrowing or marginal osteophytes. No osseous erosion. No periarticular osteopenia. No abnormal soft tissue calcification. Left Hand: No fracture or dislocation. Normal carpal alignment. No significant joint space narrowing or marginal osteophytes. No osseous erosion. No periarticular osteopenia. No abnormal soft tissue calcification. IMPRESSION: RIGHT HAND: Unremarkable examination. LEFT HAND: Unremarkable examination. Assessment & Plan Assessment & Plan (1) Rheumatoid arthritis: Comment: April 2019 -Diagnosed, methotrexate 8 tabs weekly August 2020- 8 tabs methotrexate, failed sulfasalazine, Humira added December 2020- elevated LFTs, methotrexate decreased to 5 tabs weekly, Humira March 2021- 5 tabs methotrexate , Humira discontinue, Enbrel started-continued pain June 2021- 5 tab methotrexate , Enbrel discontinued-no difference November 2021- patient would like to trial off methotrexate. HCQ 07/2023 effective Code(s): M06.9 - Rheumatoid arthritis, unspecified Category: Medical Qualifiers: Rheumatoid arthritis location: multiple sites Rheumatoid factor presence: with rheumatoid factor Qualified Code(s): M05.79 - Rheumatoid arthritis with rheumatoid factor of multiple sites without organ or systems involvement Plan: #Seropositive RA Patient is a 49-year-old female with seropositive rheumatoid arthritis currently on hydroxychloroquine which has been effective for her. currently experiencing more stiffness due to being without medication. Will restart meds. If no improvement can try leflunomide Plan - Plaquenil 400 mg daily M-, 200 mg daily Sat- Sun - RTC 6 months - Labs before visit: CBC, CMP, ESR, CRP (2) Long-term use of hydroxychloroquine: Code(s): Z79.899 - Other residential (current) drug therapy Category: Medical Plan: #Long-term Use of Hydroxychloroquine Discussed with patient the risks and benefits of hydroxychloroquine in managing the rheumatic condition Benefits include: - Reduced pain, reduce mortality, maintenance of remission and reduction of flares Risks include: - GI upset, skin hyperpigmentation, retinal toxicity (especially after more than 5 years of use), myopathy Advised yearly ophthalmology visits Plan I spent 30 minutes reviewing the record and labs, taking a history, examining the patient, discussing the treatment plan and documenting in the medical record Medications: Refilled hydroxychloroquine take 2 tablets daily for 5 days of the week and then 1 tablet daily for the remaining 2 days of the week 400 mg (2 x 200 mg) PO DAILY 180 tabs 2RF 90 days M05.79 - Rheumatoid arthritis with rheumatoid factor of multiple sites without organ or systems involvement Coding Level of Care Code Est Pt Level 4 (50966) Complex EM visit Add On G2211 Diagnoses Rheumatoid arthritis involving multiple sites with positive rheumatoid factor M05.79 Rheumatoid arthritis location: multiple sites Rheumatoid factor presence: with rheumatoid factor Long-term use of hydroxychloroquine Z79.899
[2024-11-09 10:04] VITALS: BP 134/80; PULSE 84; O2SAT 97; BMI 30.2
--- OUTSIDE RECORDS SUMMARY | 2024-11-09 11:35 | XMS_ITS | Encounter Summary ---
Author Organization [facility] Address [address] [place] [address] Phone Care Team Providers Care Project Development Director Name Role Phone Aubrie Toribio NP Unavailable Tejas Snell MD Unavailable Ting Pearson [facility] Unavailable Mary Lizarraga MD Unavailable [phone] Sera Hector NP Unavailable [phone] Unknown, Unknown Primary Care Provider Aubrie Buckner NP Primary Care Provider Anna Ashraf MD Primary Care Provider + Encounter Details Date Type Department Care Team (Late st Contact Info) Description 08/11/2020 Procedure Pass [facility], [facility] [address] [place] [address] Social History Tobacco Use Types Packs/Day Years [...] on filedocumented in this encounter Care Teams Project Development Director Relationship Specialty Start Date End Date Unknown, Unknown, [address] [place] [address] PCP - General 01/30/17 08/14/20 Aubrie Toribio [facility] [address] [place] [address] [email or web address] PCP - General Family Medicine 08/15/20 04/02/23 Anna Ashraf MD [address] [place] [address] [email or web address] PCP - General Family Medicine 04/03/23 Aubrie Toribio NP [address] [place] [address] [email or web address] Historical LMR Provider 12/22/16 Tejas Snell MD [address] [place] [address] [email or web address] Historical LMR Provider 12/22/16 08/14/20 Ting Pearson NP [address] [place] [address] [email or web address] Historical LMR Provider 12/22/16 03/11/21 Mary Lizarraga MD [address] [place] [address] Historical LMR Provider 12/22/16 2 Sera Hector NP [address] [place] [address] Historical LMR Provider 12/22/16 documented as of this encounter Additional Source Comments The information contained in this document represents components of the legal health record. It is not the complete legal health record.[facility]
--- OUTSIDE RECORDS SUMMARY | 2024-11-09 11:35 | XMS_ITS | Clinical Summary ---
Author Organization [facility] Address [address] [facility] [address] [place] [address] Phone Care Team Providers Care Manager Body Name Role Phone Aubrie Toribio NP Unavailable [phone] Anna Ashraf MD Primary Care Provider + [...] Cannon MD - 04/03/2023 9:47 AM EST [facility] Patient Name: Alexa Crandall Attending MD:: RENETTA CANNON MD, Procedure Date: 04/03/2023 9:47 AM Date of : 1975 Age: 47 Admit Type: Outpatient Gender: Female Room: [facility] 05 Referring MD: Anna Ashraf MD Exam [...] 9:47 AM Procedure Code(s): --- Professional --- 51238, Colonoscopy, flexible; diagnostic, including collection of specimen(s) by brushing or washing, when performed (separateprocedure) --- Technical --- 06341, Colonoscopy, flexible; diagnostic, including collection of specimen(s) by brushing or washing, when performed (separateprocedure) CPT copyright 2021 [employer]. All rights reserved. The codes documented in this report are preliminary and upon him assistant reviewmay be revised to meet current compliance requirements. Procedure Date: 04/03/2023 9:47:[address] [place] [address] us Anna Ashraf MD GI PROCEDURE ORDERABLES Final Result * Pap Test (11/01/2022 12:00 AM EDT) 11/01/2022 11/02/2022 8:2 0 AM EDT Narrative SEE NARRATIVE - 11/07/2022 12:34 PM EDT [address] [address] Counter Helper: Loree Lee MD CREDIT AND COLLECTIONS ANALYST Cytology Report FINAL DIAGNOSIS A. PAP SMEAR [...] 59, 66, 68) Note: Testing performed by [employer] On[employer] HR-HPV analysis. Clinical correlation is advised. This HPV test was performed at [facility], [address] [place] [address]. This test has been FDA approved for [employer] cervical cytology specimens. The accuracy and precision of this test for all other specimen sources has been verified in the Cytopathology Laboratory of the [facility] and has not been cleared or approved by the U.S. Food and Drug Administration. Clinical correlation is advised. CLINICAL HISTORY Date of Last Menstrual Period: Not Provided Menstrual History: Unknown Other Clinical Conditions: Screening Pap SPECIMEN SOURCE A: PAP SMEAR (SUREPATH) CE Patient Name: CRANDALLALEXA PETERSON : 1975 (Age: 47) Sex: F Institution: [facility] Location: [facility] Date of Collection: 11/01/2022 Date of [...] Most Recently Relevant to Health Maintenance Insurance [employer] [facility] COMMUNITY CHOICE COMMUNITY [place] [address] [place] [address] CHOICE CHOICE CHOICE CHOICE COMMUNITY CHOICE CHOICE [facility] Care Teams Manager Body Relationship Specialty Start Date End Date Anna Ashraf MD [address] [place] [address] PCP - General Family Medicine 04/03/23 Aubrie Toribio NP [address] [place] [address] Historical LMR Provider 12/22/16 Additional Source Comments The information contained in this document represents components of the legal health record. It is not the complete legal health record.[facility]
--- OUTSIDE RECORDS SUMMARY | 2024-11-09 11:35 | XMS_ITS | Encounter Summary ---
Author Organization [facility] Address [address] [place] [address] [address] Phone Care Team Providers Care Property Damage Claims Adjustor Name Role Phone Aubrie Toribio NP Unavailable [phone] Anna Ashraf MD Primary Care Provider + Encounter Details Date Type Department Care Team (Late st Contact Info) Description 04/03/2023 Procedure Pass [facility] Endoscopy Admitting Dept Virtual Department [address] [place] [address] Social History Tobacco Use Types Packs/Day Years [...] on filedocumented in this encounter Care Teams Property Damage Claims Adjustor Relationship Specialty Start Date End Date Anna Ashraf MD [address] [place] [address] [email or web address] PCP - General Family Medicine 04/03/23 Aubrie Toribio NP [address] [place] [address] [email or web address] Historical LMR Provider 12/22/16 documented as of this encounter Additional Source Comments The information contained in this document represents components of the legal health record. It is not the complete legal health record.[facility]
--- OUTSIDE RECORDS SUMMARY | 2024-11-09 11:35 | XMS_ITS | Encounter Summary ---
Author Organization [facility] Address [address] [place] [address] Phone Care Team Providers Care Engine Lathe Operator Name Role Phone Aubrie Toribio NP Unavailable Tejas Snell MD Unavailable Ting Pearson COMPUTER AIDED DESIGN TECHNICIAN Unavailable Mary Lizarraga MD Unavailable [phone] Sera Hector COMPUTER AIDED DESIGN TECHNICIAN Unavailable Unknown, Unknown Primary Care Provider Aubrie Buckner NP Primary Care Provider Anna Ashraf MD Primary Care Provider + Encounter Details Date Type Department Care Team (Late st Contact Info) Description 08/10/2020 Ancillary Orders [facility],Outside Imaging [address] [place] [address] System, Provider Not In, [place] [address] Social History Tobacco Use Types Packs/Day Years [...] on filedocumented in this encounter Care Teams Engine Lathe Operator Relationship Specialty Start Date End Date Unknown, Unknown, [address] [place] [address] PCP - General 01/30/17 08/14/20 Aubrie Toribio NP [address] [place] [address] [email or web address] PCP - General Family Medicine 08/15/20 04/02/23 Anna Ashraf MD [address] [place] [address] [email or web address] PCP - General Family Medicine 04/03/23 Aubrie Toribio NP [address] [place] [address] [email or web address] Historical LMR Provider 12/22/16 Tejas Snell MD [address] [facility], [address] [place] [address] [email or web address] Historical LMR Provider 12/22/16 08/14/20 Ting Pearson NP [address] [place] [address] [email or web address] Historical LMR Provider 12/22/16 03/11/21 Mary Lizarraga MD [address] [address] Historical LMR Provider 12/22/16 2 Sera Hector NP [address] [place] [address] Historical LMR Provider 12/22/16 documented as of this encounter Additional Source Comments The information contained in this document represents components of the legal health record. It is not the complete legal health record.[facility]
--- OUTSIDE RECORDS SUMMARY | 2024-11-09 11:35 | XMS_ITS | Encounter Summary ---
Author Organization [facility] Address [address] [place] [address] Phone Care Team Providers Care Jig Bore Tool Maker Name Role Phone Aubrie Toribio NP Unavailable [phone] Tejas Snell MD Unavailable Ting Pearson FRAME PULLEY MORTISING MACHINE OPERATOR Unavailable Mary Lizarraga MD Unavailable [phone] Sera Hector FRAME PULLEY MORTISING MACHINE OPERATOR Unavailable Unknown, Unknown Primary Care Provider Aubrie Buckner NP Primary Care Provider Anna Ashraf MD Primary Care Provider + Encounter Details Date Type Department Care Team (Late st Contact Info) Description 08/08/2020 Ancillary Orders [facility],Outside Imaging [address] [place] [address] System, Provider Not In, [place] [address] Social History Tobacco Use Types Packs/Day Years [...] on filedocumented in this encounter Care Teams Jig Bore Tool Maker Relationship Specialty Start Date End Date Unknown, Unknown, [address] [place] [address] PCP - General 01/30/17 08/14/20 Aubrie Toribio NP [address] [place] [address] [email or web address] PCP - General Family Medicine 08/15/20 04/02/23 Anna Ashraf MD [address] [place] [address] [email or web address] PCP - General Family Medicine 04/03/23 Aubrie Toribio FRAME PULLEY MORTISING MACHINE OPERATOR [address] [place] [address] [email or web address] Historical LMR Provider 12/22/16 Tejas Senll MD [address] [place] [address] [email or web address] Historical LMR Provider 12/22/16 08/14/20 Ting Pearson NP [address] [place] [address] [email or web address] Historical LMR Provider 12/22/16 03/11/21 Mary Lizarraga MD [address], [place] [address] Historical LMR Provider 12/22/16 2 Sera Hector NP [address] [place] [address] Historical LMR Provider 12/22/16 documented as of this encounter Additional Source Comments The information contained in this document represents components of the legal health record. It is not the complete legal health record.[facility]
--- OUTSIDE RECORDS SUMMARY | 2024-11-09 11:35 | XMS_ITS | Encounter Summary ---
Author Organization [facility] Address [address] [place] [address] Phone Care Team Providers Care Finisher Machine Name Role Phone Aubrie Toribio NP Unavailable Tejas Snell MD Unavailable Ting Pearson CONCRETE SWIMMING POOL INSTALLER Unavailable [phone] Mary Lizarraga MD Unavailable [phone] Sera Hector NP Unavailable Unknown, Unknown Primary Care Provider Aubrie Buckner NP Primary Care Provider Anna Ashraf MD Primary Care Provider + Encounter Details Date Type Department Care Team (Late st Contact Info) Description 08/11/2020 Ancillary Orders Virtual Department [address] [place] [address] Aubrie Toribio, CONCRETE SWIMMING POOL INSTALLER [address] [place] [address] [email or web address] Unspecified lump in the left breast, [...] quadrant documented in this encounter Care Teams Finisher Machine Relationship Specialty Start Date End Date Unknown, Unknown, [address] [place] [address] PCP - General 01/30/17 08/14/20 Aubrie Toribio NP [address] [place] [address] [email or web address] PCP - General Family Medicine 08/15/20 04/02/23 Anna Ashraf MD [address] [place] [address] [email or web address] PCP - General Family Medicine 04/03/23 Aubrie Toribio NP [address] [place] [address] [email or web address] Historical LMR Provider 12/22/16 Tejas Snell MD [address] [place] [address], [facility] [address] [place] [address] [email or web address] Historical LMR Provider 12/22/16 08/14/20 Ting Pearson NP [address] [place] [address] [email or web address] Historical LMR Provider 12/22/16 03/11/21 Mary Lizarraga MD [address], [place] [address] Historical LMR Provider 12/22/16 2 Sera Hector NP [address] [place] [address] Historical LMR Provider 12/22/16 documented as of this encounter Additional Source Comments The information contained in this document represents components of the legal health record. It is not the complete legal health record.[facility]
--- OUTSIDE RECORDS SUMMARY | 2024-11-09 11:35 | XMS_ITS | Encounter Summary ---
Author Organization [facility] Address [address] [place] [address] Phone Care Team Providers Care Impregnator Electrolytic Capacitors Name Role Phone Aubrie Toribio NP Unavailable [phone] Tejas Snell MD Unavailable Ting Pearson RECEPTION MANAGER Unavailable [phone] Mary Lizarraga MD Unavailable [phone] Sera Hector NP Unavailable Unknown, Unknown Primary Care Provider Aubrie Buckner NP Primary Care Provider Anna Ashraf MD Primary Care Provider + Encounter Details Date Type Department Care Team (Late st Contact Info) Description 08/05/2020 Ancillary Orders Virtual Department [address] [place] [address] Aubrie Toribio, RECEPTION MANAGER [address] [place] [address] [email or web address] Other abnormal and inconclusive findings on diagnostic [...] breast documented in this encounter Care Teams Impregnator Electrolytic Capacitors Relationship Specialty Start Date End Date Unknown, Unknown, [address] [place] [address] PCP - General 01/30/17 08/14/20 Aubrie Toribio NP [address] [place] [address] [email or web address] PCP - General Family Medicine 08/15/20 04/02/23 Anna Ashraf MD [address] [place] [address] [email or web address] - General Family Medicine 04/03/23 Aubrie Toribio NP [address] [place] [address] [email or web address] Historical LMR Provider 12/22/16 Tejas Snell MD [address] [place] [address] [email or web address] Historical LMR Provider 12/22/16 08/14/20 Ting Pearson NP [address] [place] [address] [email or web address] Historical LMR Provider 12/22/16 03/11/21 Mary Lizarraga MD [address] [place] [address] Historical LMR Provider 12/22/16 2 Sera Hector NP [address] [place] [address] Historical LMR Provider 12/22/16 documented as of this encounter Additional Source Comments The information contained in this document represents components of the legal health record. It is not the complete legal health record.[facility]
== END 2024-11-09 10:28 | disposition home or self-care (01) ==
LOC: HO.RHES 09:56
PROVIDERS: Visit Provider Student in an Organized Health Care Education/Training Program
DX: M05.79 Rheumatoid arthritis with rheumatoid factor of multiple sites without organ or systems involvement (principal); Z79.899 Other long term (current) drug therapy
CPT/HCPCS: 99214

== ENCOUNTER → 2024-11-09 09:56 | Outpatient (BNVA) | payer OTHER, SELFPAY | PROVIDERS: Visit Provider Student in an Organized Health Care Education/Training Program | DX: M05.79 Rheumatoid arthritis with rheumatoid factor of multiple sites without organ or systems involvement (principal); Z79.899 Other long term (current) drug therapy; Z13.89 Encounter for screening for other disorder ==